=== PATIENT | female | born 1945 | race Caucasian/White ===

== ENCOUNTER → 2017-01-22 | Outpatient (CLI) | payer MEDICARE, OTHER ==
--- NOTE | 2017-01-24 11:44 | P.ARTDOP ---
Arterial Doppler LOWER EXTREMITY ARTERIAL DOPPLER: DATE OF SERVICE: 01/22/2017 Reason for study: Right foot ulcer. Doppler waveforms: Multiphasic throughout on the left and throughout on the right except the right dorsalis pedis.. Pulse volume recording: []. Pressure gradients: Mild distal gradients. Ankle-brachial indices: Greater than 1 bilaterally. Toe pressures: 60 on the right, 77 on the left Impression: Mild distal disease on the right. Perfusion still quite adequate for healing..
== END | disposition home or self-care (01) ==
LOC: RADUSWWP 11:59
PROVIDERS: ATTEND Family Medicine
DX: I77.9 Disorder of arteries and arterioles, unspecified (principal)
CPT/HCPCS: 93922

== ENCOUNTER → 2017-03-27 | Outpatient (CLI) | payer MEDICARE, OTHER ==
--- NOTE | 2017-03-27 14:29 | CT ---
EXAMINATION TYPE: CT abdomen pelvis wo con DATE OF EXAM: 03/27/2017 COMPARISON: KUB dated 01/28/2014 HISTORY: Kidney stones CT DLP: 965 mGycm Automated exposure control for dose reduction was used. TECHNIQUE: Helical acquisition of images was performed from the lung bases through the pelvis. FINDINGS: Leg of intravenous contrast limits evaluation of both the hollow and solid viscera. LUNG BASES: Right middle lobe groundglass airspace disease is present as well as other areas of subse gmental atelectasis. LIVER/GB: Unenhanced liver is of unremarkable morphology and similar in attenuation to that of the sp samy. No intrahepatic biliary duct dilatation. Gallbladder is unremarkable. PANCREAS: Unenhanced pancreas is unremarkable with no ductal dilatation. SPLEEN: No significant abnormality is seen. ADRENALS: Adrenal glands are bulky in appearance without discrete measurable nodule and maintain thei r adreniform shape, likely on the basis of adrenal gland hyperplasia. KIDNEYS: Kidneys are both elongated in the lower poles of the kidneys extending across midline and ar e connected representing a horseshoe kidneys. Innumerable renal calculi are seen bilaterally. Within the right upper pole conglomeration of numerous stones measures 5.4 cm in length and extends into the renal pelvis. Additionally at least 5 renal calculi are seen within the right renal pelvis and there is renal pelvic dilatation as well as right upper pole calyceal dilatation. Remainder the right-side d calyces are nondilated. Distal and mid right ureter are nondilated. 2 posterior medial nonobstructing right midpole renal calculi measuring 5 mm and 1 cm. Anterior midpo le conglomeration of calculi measure 1.6 cm. Inferior pole conglomeration posteriorly measure 1.6 cm. Within the renal pelvis numerous calculi together measure 2.2 cm transversely. Additional inferior p ole calculus measures 1.0 cm. 2 subcentimeter calculi extend near the midline. The left ureter is non dilated. Cortical renal thinning is noted bilaterally. FREE AIR: No free air is visualized REPRODUCTIVE ORGANS: Left adnexal complex partially cystic and partially solid mass measures 5.9 x 6. 8 x 6.3 cm and displaces sigmoid colon medially. This also compresses the left external iliac vein. N onenlarged elongated external iliac chain lymph node on series 3 image 124 measures 6 mm in short axi s. No enlarged superficial inguinal lymph nodes. URINARY BLADDER: No significant abnormality is seen. ADENOPATHY: Few prominent right pelvic lymph nodes are seen within the external iliac chain on serie s 3 image 127 measuring 7 mm in short axis as well as a second external chain right iliac lymph node on series 3 image 119 also measuring 7 mm in short axis in addition to a 9 mm short axis right common iliac chain lymph node on series 3 image 100. At the bifurcation there is a prominent lymph node jimy suring 9 mm in short axis on series 3 image 94. Scattered nonenlarged perirenal and periaortic subcen timeter lymph nodes are also present. OSSEOUS STRUCTURES: Postsurgical change is seen of the L4-L5 vertebral bodies. Mild multilevel degen erative disc disease is present of the visualized thoracolumbar spine. BOWEL: Unopacified bowel is nondilated. Sigmoid and descending colonic diverticula are present witho ut pericolonic fat stranding. OTHER: Dependent body wall edema is mild. IMPRESSION: 1. COMPLEX PARTIALLY CYSTIC AND PARTIALLY SOLID LEFT ADNEXAL 6.8 CM MASS SUSPICIOUS FOR OVARIAN NEOPL ASM. PELVIC ULTRASOUND IS RECOMMENDED FOR FURTHER EVALUATION. 2. HORSESHOE KIDNEYS WITH INNUMERABLE BILATERAL CALCULI WITH A STAGHORN APPEARANCE AND WITHOUT HYDROU RETERONEPHROSIS. CORTICAL RENAL THINNING IS NOTED BILATERALLY. 3. FEW PROMINENT PELVIC LYMPH NODES WITHOUT PATHOLOGICALLY ENLARGED GREATER THAN 1 CM SHORT AXIS LYMP H NODES. 4. FINDINGS LIKELY REPRESENTING ADRENAL GLAND HYPERPLASIA. 5. RIGHT MIDDLE LOBE GROUNDGLASS OPACITY IS NONSPECIFIC AND MAY REPRESENT PNEUMONITIS OR ATELECTASIS. A Yellow message has been communicated to Kamar Thayer MD via the [employer] Critical Result system on 03/27/2017 2:26 PM, Message ID [id number].
== END | disposition home or self-care (01) ==
LOC: RADCTMAIN 12:47
PROVIDERS: ATTEND Urology
DX: N20.0 Calculus of kidney (principal); E27.9 Disorder of adrenal gland, unspecified; Q63.1 Lobulated, fused and horseshoe kidney; N28.89 Other specified disorders of kidney and ureter; Z88.0 Allergy status to penicillin; Z88.8 Allergy status to other drugs, medicaments and biological substances
CPT/HCPCS: 74176

== ENCOUNTER 2017-05-09 06:27 | Day surgery (SDC) | payer MEDICARE, OTHER ==
[2017-05-03 11:37] VITALS: BMI 29.4
[~2017-05-09 06:27] MED LIST: AMPICILLIN 1,000 MG in SODIUM CHLORIDE 0.9% 50 ML IVPB ONE; DEXAMETHASONE SOD PHOSPHATE 10 MG/ML 1 ML VIAL IV ONE; GENTAMICIN 120 MG in SODIUM CHLORIDE 0.9% 100 ML IVPB ONE; HYDROmorphone 0.5 MG/0.5 ML SYRINGE IVP PRN; ONDANSETRON 4 MG/2 ML VIAL IVP ONE
[2017-05-09] MEDS: LACTATED RINGERS 1,000 ML IV SCH ×3 (07:05→11:19)
[2017-05-09] MEDS ORDERED: LIDOCAINE 1% 20 ML VIAL (10MG/ML) FOR IV START INTRADERMA ONE (07:06)
[2017-05-09 07:08] LABS: Glucose,Whole Blood 115 mg/dL (75-99)
--- NOTE | 2017-05-09 07:37 | XR ---
EXAMINATION TYPE: XR KUB DATE OF EXAM: 05/09/2017 7:27 AM CLINICAL HISTORY: Bilateral kidney stones TECHNIQUE: Single supine KUB image of the abdomen is obtained. COMPARISON: CT abdomen and pelvis March 27, 2017 FINDINGS: There is marked bilateral nephrolithiasis redemonstrated. There are roughly 15 large calcul i within right renal pelvis and collecting system, several measuring between 1 to 2 cm on long axis. Similarly there are approximately 15 calculi measuring between 5 to 20 mm throughout left kidney tony ecting system and pelvis. There is postsurgical change lower lumbar spine redemonstrated. There is vascular calcification and p hleboliths in the pelvis. Vascular calcification upper abdomen is noted. Osseous structures are demin eralized. There is moderate joint space loss and subchondral cystic change in both hips. IMPRESSION: Prominent bilateral nephrolithiasis redemonstrated.
[2017-05-09] MEDS ORDERED: PROPOFOL 10 MG/ML 20 ML VIAL IV ONE (07:54)
[2017-05-09] MEDS ORDERED: PHENYLEPHRINE-0.9% NACL SYG 1 MG/10 ML SYRINGE ONE (07:54)
[2017-05-09] MEDS ORDERED: fentaNYL (PF) 50 MCG/ML 2 ML AMP ONE (07:54)
[2017-05-09] MEDS ORDERED: IOHEXOL 350 MG/ML 50ML BOTTLE MISCELLANE ONE (07:54)
[2017-05-09] MEDS ORDERED: LIDOCAINE 1% INJ 10MG/ML (20 ML MDV) ONE (07:54)
[2017-05-09] MEDS ORDERED: SUCCINYLCHOLINE CHLORIDE 100 MG/5 ML SYR IV ONE (07:54)
[2017-05-09] MEDS ORDERED: BISACODYL 10 MG SUPP RECTAL PRN (09:23)
[2017-05-09] MEDS ORDERED: ACETAMINOPHEN TAB 325 MG TAB PO PRN (09:23)
[2017-05-09] MEDS ORDERED: HYDROcodone/APAP 5-325MG 1 EACH TAB PO PRN (09:29)
--- NOTE | 2017-05-09 09:33 | FL ---
EXAMINATION TYPE: FL urography retrograde DATE OF EXAM: 05/09/2017 COMPARISON: NONE HISTORY: Right ureteral stones TECHNIQUE: Fluoroscopy. FINDINGS: 2 minutes and 57 seconds of fluoroscopy provided. IMPRESSION: Fluoroscopy time.
--- NOTE | 2017-05-09 09:38 | P.OP ---
Date of Procedure: 05/09/17 Preoperative Diagnosis: bilateral renal calculi in horseshoe kidney, infected stones, multiple medical problems. Postoperative Diagnosis: Same, right ureteral calculi with obstruction Procedure(s) Performed: Staff to be, right ureteroscopy and stone removal, laser lithotripsy placement of 626 stent Anesthesia: MOE Surgeon: Kamar Thayer Estimated Blood Loss (ml): 0 Pathology: other (Stone) Condition: stable Disposition: PACU Indications for Procedure: The patient is an unhealthy 72-year-old bedridden retirement patient with a horseshoe kidney with large volumes staghorn calculi in each kidney. Had recurrent infections. She has Proteus and Klebsiella in the urine consistent with infected stones. The patient's family wish that I remove the stones. She comes for percutaneous nephrostolithotomy. She has been on IV antibiotics preoperatively Description of Procedure: Patient brought the operating suite and given general anesthesia on the transport gurney. She's placed in a frog position. Cystoscopy identifies chronically infected bladder urine. Bladder urine is irrigated out. The right ureteral orifice is identified. To catheterize the right ureter with occluding balloon catheter but the resistance in the distal ureter. Review the preoperative KUB and what appears to be a nikki collection of distal ureteral stones are identified. The patient thus is placed on the operating table in office supine position placed lithotomy position with sterile prep and drape. rt retrograde Grade pyelogram shows the collection of stones in the distal ureter like a Stein[address]. I cannot pass a wire by the stones. I thus passed a semirigid rigid ureteroscope to the stones and then able to manipulate a wire by the stones. I then easily break the stones with laser lithotripsy. I basket the stones out of the ureter. I Then amount of edema at the point of the ureteroscopy thus a double-J catheter will be placed. An 035 wires and passed through the ureteroscope and over the wires passed a 626 double-J catheter that coils in the renal pelvis and the bladder. the ureter was quite hydronephrotic above the stones therefore I do not wish to work initially in a very infected system . I'll let the double-J catheter drain the infected system and then secondarily do a percutaneous nephrostolithotomy bilaterally. The patient's awakened and returned recovery room good condition. She tolerated procedure well. She'll be observed in the hospital overnight. If she does well she'll be discharged home tomorrow and be set up for a percutaneous nephrostolithotomy in the near future.
[2017-05-09 09:55] LABS: Glucose,Whole Blood 98 mg/dL (75-99)
[2017-05-09] MEDS ORDERED: LEVOFLOXACIN 500 MG TAB PO ONE (10:00)
[2017-05-09 11:47] LABS: Glucose,Whole Blood 92 mg/dL (75-99)
[2017-05-09] MEDS: SODIUM CHLORIDE 0.45% 1,000 ML IV SCH (14:31)
[2017-05-09] MEDS ORDERED: ASPIRIN 81 MG PO SCH (17:00)
[2017-05-09] MEDS: REPAGLINIDE 1 MG TAB PO SCH ×2 (18:02→20:55)
[2017-05-09 19:41] LABS: Glucose,Whole Blood 137 mg/dL (75-99)
[2017-05-09] MEDS: MENTHOL-ZINC OXIDE OINT 113 GM TUBE TOPICAL SCH ×2 (20:54→23:23)
[2017-05-09] MEDS: METOPROLOL TARTRATE 25 MG TAB PO SCH (20:55)
[2017-05-09] MEDS: PRIMIDONE 50 MG TAB PO SCH (20:55)
[2017-05-09] MEDS: GABAPENTIN 300 MG CAP PO SCH (20:55)
[2017-05-09] MEDS ORDERED: SULFAMETHOX-TMP 800-160MG 1 EACH TAB PO SCH (21:00)
[2017-05-09] MEDS ORDERED: INSULIN DETEMIR 100 UNIT/ML 10 ML VIAL SQ SCH (21:00)
[2017-05-09 23:19] VITALS: RESP 16
[2017-05-10 07:08] LABS: Glucose,Whole Blood 79 mg/dL (75-99)
[2017-05-10] MEDS: SODIUM CHLORIDE 0.45% 1,000 ML IV SCH (07:36)
[2017-05-10] MEDS ORDERED: amLODIPine 10 MG TAB PO SCH (09:00)
[2017-05-10] MEDS ORDERED: LEVOFLOXACIN 250 MG TAB PO SCH (09:00)
[2017-05-10] MEDS ORDERED: LISINOPRIL 10 MG TAB PO SCH (09:00)
[2017-05-10] MEDS: REPAGLINIDE 1 MG TAB PO SCH (09:04)
[2017-05-10] MEDS: PRIMIDONE 50 MG TAB PO SCH (09:05)
[2017-05-10] MEDS: GABAPENTIN 300 MG CAP PO SCH (09:05)
[2017-05-10] MEDS: METOPROLOL TARTRATE 25 MG TAB PO SCH (09:05)
[2017-05-10] MEDS: MENTHOL-ZINC OXIDE OINT 113 GM TUBE TOPICAL SCH (09:07)
[2017-05-10 11:12] LABS: Glucose,Whole Blood 184 mg/dL (75-99)
--- NOTE | 2017-05-10 12:45 | P.DS ---
Providers Expected date of discharge: 05/10/17 Attending physician: Kamar Thayer Primary care physician: [facility] Course: On the day of admission, the patient underwent right ureteroscopy. A ureteral calculus was identified, which was removed endoscopically. A ureteral stent was left in place. She remained stable postoperatively. She was afebrile throughout her hospitalization. She was asymptomatic the following day. Procedures: Right ureteroscopy with laser lithotripsy 05/09/2017. Patient Condition at Discharge: Fair Plan - Discharge Summary Discharge Rx Participant: Yes New Discharge Prescriptions: New Cephalexin [Keflex] 500 mg PO Q8HR #30 cap No Action Metoprolol Tartrate [Lopressor] 25 mg PO BID Gabapentin [Neurontin] 300 mg PO BID Aspirin 81 mg PO DAILY@1700 Primidone [Mysoline] 50 mg PO BID Lidocaine 2% Gel [Xylocaine Jelly 2%] 1 applic TOPICAL Q24H PRN PRN Reason: Pain Na Phos,M-B/Na Phos,Di-Ba [Fleet Adult] 133 ml RECTAL ONCE PRN PRN Reason: Constipation Bisacodyl [Dulcolax] 10 mg RECTAL DAILY PRN PRN Reason: Constipation Acetaminophen [Tylenol] 650 mg PO Q4H PRN PRN Reason: Fever And/ Or Pain Repaglinide [Prandin] 0.5 mg PO TID Folic Acid 1 mg PO DAILY@1700 Cholecalciferol [Vitamin D3] 1,000 unit PO DAILY@1700 amLODIPine [Norvasc] 10 mg PO DAILY Magnesium Hydroxide [Milk of Magnesia] 2,400 mg PO DAILY PRN PRN Reason: Constipation Menthol/Zinc Oxide [Calmoseptine Ointment] 1 applic TOPICAL TID Warfarin [Coumadin] 5 mg PO DAILY@1700 #0 Ertapenem [INVanz] 1 gm IVPB Q24H #10 bag Insulin Glargine [Lantus] 28 unit SQ HS Lisinopril [Zestril] 10 mg PO DAILY Discharge Medication List Aspirin 81 mg PO DAILY@1700 01/26/14 [History] Gabapentin [Neurontin] 300 mg PO BID 01/26/14 [History] Metoprolol Tartrate [Lopressor] 25 mg PO BID 01/26/14 [History] Primidone [Mysoline] 50 mg PO BID 09/22/14 [History] Acetaminophen [Tylenol] 650 mg PO Q4H PRN 04/21/17 [History] Bisacodyl [Dulcolax] 10 mg RECTAL DAILY PRN 04/21/17 [History] Cholecalciferol [Vitamin D3] 1,000 unit PO DAILY@1700 04/21/17 [History] Folic Acid 1 mg PO DAILY@1700 04/21/17 [History] Lidocaine 2% Gel [Xylocaine Jelly 2%] 1 applic TOPICAL Q24H PRN 04/21/17 [ History] Magnesium Hydroxide [Milk of Magnesia] 2,400 mg PO DAILY PRN 04/21/17 [History] Na Phos,M-B/Na Phos,Di-Ba [Fleet Adult] 133 ml RECTAL ONCE PRN 04/21/17 [History ] Repaglinide [Prandin] 0.5 mg PO TID 04/21/17 [History] amLODIPine [Norvasc] 10 mg PO DAILY 04/21/17 [History] Menthol/Zinc Oxide [Calmoseptine Ointment] 1 applic TOPICAL TID 04/23/17 [ History] Ertapenem [INVanz] 1 gm IVPB Q24H #10 bag 04/26/17 [Rx] Warfarin [Coumadin] 5 mg PO DAILY@1700 #0 04/26/17 [Rx] Insulin Glargine [Lantus] 28 unit SQ HS 05/03/17 [History] Lisinopril [Zestril] 10 mg PO DAILY 05/03/17 [History] Cephalexin [Keflex] 500 mg PO Q8HR #30 cap 05/10/17 [Rx] Activity/Diet/Wound Care/Special Instructions: Diet as tolerated. Discharge to [facility]. Keflex Rx was sent to [facility] Dr. Thayer to arrange F/U surgery. Discharge Disposition: TRANSFER TO SNF/ECF
[2017-05-10 16:28] VITALS: BP 105/57; PULSE 69; TEMP 97
[2017-05-10 16:57] LABS: Hemoglobin A1C 6.1 % (4.0-6.0)
== END 2017-05-10 14:35 ==
LOC: OR 06:27 → 3SUR 09:25 → OR 05-10 14:35
PROVIDERS: ATTEND Urology
DX: N20.2 Calculus of kidney with calculus of ureter (principal); Q63.1 Lobulated, fused and horseshoe kidney; I48.91 Unspecified atrial fibrillation; Z79.01 Long term (current) use of anticoagulants; E78.5 Hyperlipidemia, unspecified; I10 Essential (primary) hypertension; Z79.4 Long term (current) use of insulin; E11.9 Type 2 diabetes mellitus without complications; Z79.2 Long term (current) use of antibiotics; Z79.82 Long term (current) use of aspirin; Z79.899 Other long term (current) drug therapy; Z88.0 Allergy status to penicillin; Z88.8 Allergy status to other drugs, medicaments and biological substances
CPT/HCPCS: 52352; 52332; 82365; 83036; 74420; 74018; C2625; C1758; C1769 ×3; C2628; J2001; J3010; J1580; J2370; J0330; J2704; Q9967

== ENCOUNTER 2017-05-17 09:36 | Inpatient (IN) | payer MEDICARE, OTHER ==
[2017-05-14 14:42] VITALS: BMI 29.4
[~2017-05-17 09:36] MED LIST changes: -ACETAMINOPHEN TAB 325 MG TAB PO PRN; -BISACODYL 10 MG SUPP RECTAL PRN; -CEPHALEXIN 500 MG CAP PO SCH; +DEXAMETHASONE SOD PHOSPHATE 10 MG/ML 1 ML VIAL IV ONE; -GABAPENTIN 300 MG CAP PO SCH; +GENTAMICIN 120 MG in SODIUM CHLORIDE 0.9% 100 ML IVPB ONE; +HYDROmorphone 0.5 MG/0.5 ML SYRINGE IVP PRN; -INSULIN GLARGINE 28 UNIT SQ SCH; +LACTATED RINGERS 1,000 ML IV SCH; +LIDOCAINE 1% 20 ML VIAL (10MG/ML) FOR IV START INTRADERMA PRN; -LISINOPRIL 10 MG TAB PO SCH; -MAG HYDROX/AL HYDROX/SIMETH 30 ML CUP PO PRN; -MENTHOL-ZINC OXIDE OINT 113 GM TUBE TOPICAL SCH; -METOPROLOL TARTRATE 25 MG TAB PO SCH; +MIDAZOLAM 2 MG/2 ML VIAL IV PRN; -MORPHINE SULFATE 2 MG/ML SYRINGE IVP PRN; +ONDANSETRON 4 MG/2 ML VIAL IVP ONE; -ONDANSETRON 4 MG/2 ML VIAL IVP PRN; -PRIMIDONE 50 MG TAB PO SCH; -REPAGLINIDE 0.5 MG PO SCH; +SCOPOLAMINE 1.5MG/72HR PATCH TRANSDERM ONE; -SODIUM CHLORIDE 0.45% 1,000 ML IV SCH; -amLODIPine 10 MG TAB PO SCH
--- NOTE | 2017-05-17 10:08 | XR ---
EXAMINATION TYPE: XR KUB DATE OF EXAM: 05/17/2017 COMPARISON: 05/09/2017 HISTORY: Preop TECHNIQUE: One view abdominal series FINDINGS: The osseous structures are intact. The bowel gas pattern is nonspecific. Right-sided ureteral stent noted with previous surgery involving the vertebral column. Numerous bilateral renal calculi noted. V ascular calcification seen. Arthropathy of the hips. Extensive retained fecal debris in the colon. IMPRESSION: 1. Bilateral nephrolithiasis.
[2017-05-17 11:24] LABS: Glucose,Whole Blood 84 mg/dL (75-99)
[2017-05-17 11:40] LABS: INR 1.1 (<1.2); Partial Thromboplastin Time 22.7 sec (22.0-30.0); Prothrombin Time 10.4 sec (9.0-12.0)
[2017-05-17] MEDS ORDERED: GLYCOPYRROLATE 0.2 MG/ML 2 ML VIAL ONE (11:45)
[2017-05-17] MEDS ORDERED: PROPOFOL 10 MG/ML 20 ML VIAL IV ONE (11:45)
[2017-05-17] MEDS ORDERED: ROCURONIUM BROMIDE 10 MG/ML 10 ML VIAL IV ONE (11:45)
[2017-05-17] MEDS ORDERED: PHENYLEPHRINE-0.9% NACL SYG 1 MG/10 ML SYRINGE ONE (11:45)
[2017-05-17] MEDS ORDERED: LIDOCAINE 1% INJ 10MG/ML (20 ML MDV) ONE (11:45)
[2017-05-17] MEDS ORDERED: fentaNYL (PF) 50 MCG/ML 2 ML AMP ONE (11:45)
[2017-05-17] MEDS ORDERED: MIDAZOLAM 2 MG/2 ML VIAL ONE (11:45)
[2017-05-17] MEDS ORDERED: NEOSTIGMINE 1 MG/ML 10 ML VIAL ONE (11:45)
[2017-05-17] MEDS ORDERED: IOHEXOL 350 MG/ML (PER ML) 100ML BTL MISCELLANE ONE (12:22)
[2017-05-17] MEDS ORDERED: SODIUM CHLORIDE 0.9% 1,000 ML BAG IRRIGATION ONE (12:22)
--- NOTE | 2017-05-17 13:40 | P.OP ---
Date of Procedure: 05/17/17 Preoperative Diagnosis: Infected Staghorn calculus right, horseshoe kidney Postoperative Diagnosis: Same Procedure(s) Performed: Cystoscopy, removal double-J catheter right, placement of 5-Paraguayan occluding balloon catheter right, percutaneous nephrostomy (Dr. jean-baptiste), percutaneous nephrostolithotomy with ultrasound, placement of 12-Paraguayan J nephrostomy Anesthesia: MOE Surgeon: Kamar Thayer Estimated Blood Loss (ml): 50 Pathology: other (Stone) Condition: stable Disposition: PACU Indications for Procedure: The patient is a 72-year-old usp patient with Alzheimer's and a previous stroke who has bilateral staghorn calculi. She had ureteral stones which were removed last week with a double-J catheter placed. She comes for percutaneous nephrostolithotomy. Description of Procedure: Patient is brought to the operating suite. She is given a general endotracheal anesthesia on the transport gurney. She's placed in a frog position with a sterile prep and drape. Cystoscopy of the Foroblique and 21-Paraguayan sheath and grasping forceps poles the double-J catheter to the urethral meatus. Through the double-J catheter an 025 wires passed up into the renal pelvis. The double- J catheters removed and an 5-Paraguayan occluding balloon catheters placed in the proximal ureter. She's placed in a prone position. Dr. Jean-Baptiste of radiology performed percutaneous access to an upper pole calyx. I dilate the tract to 30-Paraguayan. Upon entering the collecting system and into the renal pelvis a large volume of infected stone was identified. It is either grasped with grasping forceps basketed or broken up and suctioned out with ultrasound. I then pass and each calyx removing stone. At the end of the procedure I looked throughout the collecting system there is no remaining stone. I looked down into the proximal ureter and basket any remaining fragments. I look on fluoroscopy there is no remaining stone. A 12-Paraguayan J nephrostomy tube was placed over the working wire. It is secured the skin with 2-0 silk. His position is confirmed fluoroscopically. The patient was awakened and returned recovery room good condition. She tolerated procedure well be discharged home upon recovery.
[2017-05-17] MEDS ORDERED: BISACODYL 10 MG SUPP RECTAL PRN (13:58)
[2017-05-17] MEDS ORDERED: MAGNESIUM HYDROXIDE 2,400 MG/10 ML CUP PO PRN (13:58)
[2017-05-17] MEDS ORDERED: ACETAMINOPHEN TAB 325 MG TAB PO PRN ×2 (13:58→14:00)
[2017-05-17] MEDS ORDERED: MAG HYDROX/AL HYDROX/SIMETH 30 ML CUP PO PRN (14:00)
[2017-05-17] MEDS ORDERED: ONDANSETRON 4 MG/2 ML VIAL IVP PRN (14:00)
[2017-05-17] MEDS ORDERED: MORPHINE SULFATE 2 MG/ML SYRINGE IVP PRN (14:03)
[2017-05-17 14:09] LABS: Glucose,Whole Blood 100 mg/dL (75-99)
[2017-05-17] MEDS: SODIUM CHLORIDE 0.45% 1,000 ML IV SCH (14:34)
[2017-05-17] MEDS: CEPHALEXIN 500 MG CAP PO SCH ×2 (19:28→23:39)
[2017-05-17] MEDS: MENTHOL-ZINC OXIDE OINT 113 GM TUBE TOPICAL SCH ×2 (19:28→21:00)
[2017-05-17] MEDS: GABAPENTIN 300 MG CAP PO SCH (20:59)
[2017-05-17] MEDS ORDERED: INSULIN DETEMIR 100 UNIT/ML 10 ML VIAL SQ SCH (21:00)
[2017-05-17] MEDS: METOPROLOL TARTRATE 25 MG TAB PO SCH (21:00)
[2017-05-17] MEDS: PRIMIDONE 50 MG TAB PO SCH (21:00)
[2017-05-17 21:10] LABS: Glucose,Whole Blood 126 mg/dL (75-99)
[2017-05-18] MEDS: SODIUM CHLORIDE 0.45% 1,000 ML IV SCH (05:38)
--- NOTE | 2017-05-18 07:34 | P.DS ---
Providers Date of admission: 05/17/17 09:36 Attending physician: Kamar Thayer Primary care physician: [facility] Course: The patient is a 72-year-old alf patient with a history of a previous stroke and some early Alzheimer's with chronically infected urine bilateral staghorn calculi. Last week she had removal of ureteral calculi and stent placement. Yesterday she had a percutaneous nephrostolithotomy as well as removal of her right ureteral catheter. She did well without evidence of sepsis. She is awake alert and oriented hungry this morning. Her urine is clearing nicely. She'll be transferred back to [facility] this morning. Her vital signs are stable. She will resume all her previous medications except no Coumadin until I see her in the office and remove her nephrostomy tube. Her condition is stable. I will defer left percutaneous nephrostolithotomy in the near future. Patient Condition at Discharge: Stable Plan - Discharge Summary Discharge Rx Participant: Yes New Discharge Prescriptions: No Action Metoprolol Tartrate [Lopressor] 25 mg PO BID Gabapentin [Neurontin] 300 mg PO BID Aspirin 81 mg PO DAILY@1700 Primidone [Mysoline] 50 mg PO BID Lidocaine 2% Gel [Xylocaine Jelly 2%] 1 applic TOPICAL DAILY PRN PRN Reason: Pain Na Phos,M-B/Na Phos,Di-Ba [Fleet Adult] 133 ml RECTAL ONCE PRN PRN Reason: Constipation Bisacodyl [Dulcolax] 10 mg RECTAL DAILY PRN PRN Reason: Constipation Acetaminophen [Tylenol] 650 mg PO Q4H PRN PRN Reason: Fever And/ Or Pain Repaglinide [Prandin] 0.5 mg PO TID Folic Acid 1 mg PO DAILY@1700 Cholecalciferol [Vitamin D3] 1,000 unit PO DAILY@1700 amLODIPine [Norvasc] 10 mg PO DAILY Magnesium Hydroxide [Milk of Magnesia] 2,400 mg PO DAILY PRN PRN Reason: Constipation Menthol/Zinc Oxide [Calmoseptine Ointment] 1 applic TOPICAL TID Warfarin [Coumadin] 5 mg PO DAILY@1700 #0 Insulin Glargine [Lantus] 28 unit SQ HS Lisinopril [Zestril] 5 mg PO DAILY Cephalexin [Keflex] 500 mg PO Q8HR #30 cap Discharge Medication List Aspirin 81 mg PO DAILY@1700 01/26/14 [History] Gabapentin [Neurontin] 300 mg PO BID 01/26/14 [History] Metoprolol Tartrate [Lopressor] 25 mg PO BID 01/26/14 [History] Primidone [Mysoline] 50 mg PO BID 01/26/14 [History] Acetaminophen [Tylenol] 650 mg PO Q4H PRN 04/21/17 [History] Bisacodyl [Dulcolax] 10 mg RECTAL DAILY PRN 04/21/17 [History] Cholecalciferol [Vitamin D3] 1,000 unit PO DAILY@1700 04/21/17 [History] Folic Acid 1 mg PO DAILY@1700 04/21/17 [History] Lidocaine 2% Gel [Xylocaine Jelly 2%] 1 applic TOPICAL DAILY PRN 04/21/17 [ History] Magnesium Hydroxide [Milk of Magnesia] 2,400 mg PO DAILY PRN 04/21/17 [History] Na Phos,M-B/Na Phos,Di-Ba [Fleet Adult] 133 ml RECTAL ONCE PRN 04/21/17 [History ] Repaglinide [Prandin] 0.5 mg PO TID 04/21/17 [History] amLODIPine [Norvasc] 10 mg PO DAILY 04/21/17 [History] Menthol/Zinc Oxide [Calmoseptine Ointment] 1 applic TOPICAL TID 04/23/17 [ History] Warfarin [Coumadin] 5 mg PO DAILY@1700 #0 04/26/17 [Rx] Insulin Glargine [Lantus] 28 unit SQ HS 05/03/17 [History] Lisinopril [Zestril] 5 mg PO DAILY 05/03/17 [History] Cephalexin [Keflex] 500 mg PO Q8HR #30 cap 05/10/17 [Rx] Follow up Appointment(s)/Referral(s): Kamar Thayer MD [STAFF PHYSICIAN] - 05/21/17 Activity/Diet/Wound Care/Special Instructions: Home with nephrostomy tube. Resume all medications except hold the Coumadin. Office to see me Sunday for nephrostomy tube removal. Leave indwelling catheter. Discharge Disposition: TRANSFER TO SNF/F
[2017-05-18] MEDS: PRIMIDONE 50 MG TAB PO SCH (08:54)
[2017-05-18] MEDS: CEPHALEXIN 500 MG CAP PO SCH ×2 (08:54→15:52)
[2017-05-18] MEDS: MENTHOL-ZINC OXIDE OINT 113 GM TUBE TOPICAL SCH ×2 (08:54→15:51)
[2017-05-18] MEDS: GABAPENTIN 300 MG CAP PO SCH (08:55)
[2017-05-18] MEDS: METOPROLOL TARTRATE 25 MG TAB PO SCH (08:55)
[2017-05-18] MEDS ORDERED: LISINOPRIL 5 MG TAB PO SCH (09:00)
[2017-05-18] MEDS ORDERED: amLODIPine 10 MG TAB PO SCH (09:00)
[2017-05-18 15:00] VITALS: BP 118/62; PULSE 60; RESP 20; TEMP 97
== END 2017-05-18 16:22 | DRG 661 ==
LOC: 2ORMAIN 09:36 → 3SUR 13:54
PROVIDERS: ADMIT Urology; ATTEND Urology
PROC: 0TC03ZZ Extirpation of Matter from Right Kidney, Percutaneous Approach (ICD-10-PCS; principal; 2017-05-17 11:30)
PROC: 0TP98DZ Removal of Intraluminal Device from Ureter, Via Natural or Artificial Opening Endoscopic (ICD-10-PCS; principal; 2017-05-17 11:30)
DX: N20.0 Calculus of kidney (principal); I48.91 Unspecified atrial fibrillation; E11.9 Type 2 diabetes mellitus without complications; N30.20 Other chronic cystitis without hematuria; G30.9 Alzheimer's disease, unspecified; F02.80 Dementia in other diseases classified elsewhere, unspecified severity, without behavioral disturbance, psychotic disturbance, mood disturbance, and anxiety; Q63.1 Lobulated, fused and horseshoe kidney; E78.5 Hyperlipidemia, unspecified; I10 Essential (primary) hypertension; R19.09 Other intra-abdominal and pelvic swelling, mass and lump; Z79.01 Long term (current) use of anticoagulants; Z79.2 Long term (current) use of antibiotics; Z79.82 Long term (current) use of aspirin; Z79.4 Long term (current) use of insulin; Z79.899 Other long term (current) drug therapy; Z87.440 Personal history of urinary (tract) infections; Z87.442 Personal history of urinary calculi; Z86.73 Personal history of transient ischemic attack (TIA), and cerebral infarction without residual deficits; Z98.49 Cataract extraction status, unspecified eye; Z90.710 Acquired absence of both cervix and uterus; Z90.49 Acquired absence of other specified parts of digestive tract; Z88.0 Allergy status to penicillin; Z88.8 Allergy status to other drugs, medicaments and biological substances
CPT/HCPCS: 50432; 74018; 82365; 85610; 85730

== ENCOUNTER → 2017-05-17 | Outpatient (CLI) | payer MEDICARE, OTHER ==
[~2017-05-17] MED LIST changes: +ACETAMINOPHEN TAB 325 MG TAB PO PRN; -AMPICILLIN 1,000 MG in SODIUM CHLORIDE 0.9% 50 ML IVPB ONE; +BISACODYL 10 MG SUPP RECTAL PRN; +CEPHALEXIN 500 MG CAP PO SCH; -DEXAMETHASONE SOD PHOSPHATE 10 MG/ML 1 ML VIAL IV ONE; +GABAPENTIN 300 MG CAP PO SCH; -GENTAMICIN 120 MG in SODIUM CHLORIDE 0.9% 100 ML IVPB ONE; -HYDROmorphone 0.5 MG/0.5 ML SYRINGE IVP PRN; +INSULIN GLARGINE 28 UNIT SQ SCH; +LISINOPRIL 10 MG TAB PO SCH; +MAG HYDROX/AL HYDROX/SIMETH 30 ML CUP PO PRN; +MENTHOL-ZINC OXIDE OINT 113 GM TUBE TOPICAL SCH; +METOPROLOL TARTRATE 25 MG TAB PO SCH; +MORPHINE SULFATE 2 MG/ML SYRINGE IVP PRN; -ONDANSETRON 4 MG/2 ML VIAL IVP ONE; +ONDANSETRON 4 MG/2 ML VIAL IVP PRN; +PRIMIDONE 50 MG TAB PO SCH; +REPAGLINIDE 0.5 MG PO SCH; +SODIUM CHLORIDE 0.45% 1,000 ML IV SCH; +amLODIPine 10 MG TAB PO SCH
--- NOTE | 2017-05-17 13:58 | FL ---
EXAMINATION TYPE: FL Perc Nephrostomy New Access DATE OF EXAM: 05/17/2017 COMPARISON: NONE HISTORY: Right renal stones Procedure had been discussed with the patient by Dr. Thayer, risks, benefits, alternatives, were dis cussed and any questions were answered. Informed consent was obtained. The patient was in a semipro ne position prepped and draped on the OR table in the usual sterile fashion. Utilizing a 15 cm length Chiba needle a single pass was made into a lower pole posterior calyx under fluoroscopic guidance. An 0.018 guidewire is passed through the needle and there was placement of a 6-Hong Konger catheter sheath system. There was conversion to a 0.035 system was performed with passage of a guidewire into the ureter utilizing a directional catheter. A second safety wire was placed. R emaining portion of procedure performed by . Approximately 3 minutes 31 seconds of fluorosc opy was provided. IMPRESSION: 1. Successful intraoperative right nephrostomy prior to nephrolithotomy.
[2017-05-17 17:07] LABS: Glucose,Whole Blood 121 mg/dL (75-99)
== END | disposition home or self-care (01) ==
LOC: RADXRMAIN 09:45
PROVIDERS: ATTEND Urology
DX: N20.0 Calculus of kidney (principal); Z98.890 Other specified postprocedural states
CPT/HCPCS: 50432

== ENCOUNTER 2017-05-25 08:36 | Inpatient (IN) | payer MEDICARE, OTHER ==
[2017-05-25] MEDS ORDERED: PANTOPRAZOLE 40 MG/10 ML VIAL IVP STA (08:46)
[2017-05-25] MEDS ORDERED: SODIUM CHLORIDE 0.9% 500 ML IV STA (08:46)
[2017-05-25] MEDS ORDERED: ONDANSETRON 4 MG/2 ML VIAL IVP STA (08:46)
[2017-05-25] MEDS ORDERED: SODIUM CHLORIDE 0.9% 1,000 ML IV STA (08:46)
[2017-05-25] MEDS ORDERED: ONDANSETRON 4 MG/2 ML VIAL IVP PRN (08:48)
--- NOTE | 2017-05-25 08:50 | ED ---
General Adult HPI - General Stated complaint: Rectal Bleeding Time Seen by Provider: 05/25/17 08:46 Source: RN notes reviewed, old records reviewed - History of Present Illness Initial comments: This is a 72-year-old female to the ER for evaluation. Patient is ER for evaluation of blood in stool. No blood thinners. Patient sent for evaluation regarding GI bleed. No lightheadedness or dizziness, no weakness to feelings of near syncope - Related Data Home Medications Medication Instructions Recorded Confirmed Aspirin 81 mg PO DAILY@1700 01/26/14 05/25/17 Gabapentin [Neurontin] 300 mg PO BID 01/26/14 05/25/17 Metoprolol Tartrate [Lopressor] 25 mg PO BID 01/26/14 05/25/17 Primidone [Mysoline] 50 mg PO BID 01/26/14 05/25/17 Acetaminophen [Tylenol] 650 mg PO Q4H PRN 04/21/17 05/25/17 Bisacodyl [Dulcolax] 10 mg RECTAL DAILY PRN 04/21/17 05/25/17 Cholecalciferol [Vitamin D3] 1,000 unit PO DAILY@1700 04/21/17 05/25/17 Folic Acid 1 mg PO DAILY@1700 04/21/17 05/25/17 Lidocaine 2% Gel [Xylocaine Jelly 1 applic TOPICAL DAILY PRN 04/21/17 05/25/17 2%] Magnesium Hydroxide [Milk of 2,400 mg PO DAILY PRN 04/21/17 05/25/17 Magnesia] Na Phos,M-B/Na Phos,Di-Ba [Fleet 133 ml RECTAL ONCE PRN 04/21/17 05/25/17 Adult] Repaglinide [Prandin] 0.5 mg PO TID 04/21/17 05/25/17 amLODIPine [Norvasc] 10 mg PO DAILY 04/21/17 05/25/17 Menthol/Zinc Oxide [Calmoseptine 1 applic TOPICAL TID 04/23/17 05/25/17 Ointment] Insulin Glargine [Lantus] 18 unit SQ HS 05/03/17 05/25/17 Lisinopril [Zestril] 5 mg PO DAILY 05/03/17 05/25/17 Hydrocodone/Acetaminophen [[place] 1 tab PO Q6HR PRN 05/25/17 05/25/17 7.5-325] Previous Rx's Medication Instructions Recorded Warfarin [Coumadin] 5 mg PO DAILY@1700 #0 04/26/17 Cephalexin [Keflex] 500 mg PO Q8HR #30 cap 05/10/17 Allergies Allergy/AdvReac Type Severity Reaction Status Date / Time amoxicillin [Amoxicillin] Allergy Swelling Verified 05/25/17 09:10 Review of Systems ROS Statement: Those systems with pertinent positive or pertinent negative responses have been documented in the HPI. ROS Other: All systems not noted in ROS Statement are negative. Past Medical History Past Medical History: Atrial Fibrillation, CVA/TIA, Diabetes Mellitus, GERD/ Reflux, Hypertension, Osteoarthritis (OA), Renal Disease Additional Past Medical History / Comment(s): CHRONIC UTI OVER THE PAST YEARS. PRIOR URINARY CALCULI. LEFT SIDED WEAKNESS.neuropathy, past uterine fibroids, pvd, paroxysmal afib, pressure sores rt heel/buttocks, difficulty swallowing pills. PICC LINE DISCONTINUED History of Any Multi-Drug Resistant Organisms: ESBL Date of last positivie culture/infection: 04/23/17 MDRO Source:: urine Past Surgical History: Appendectomy, Hysterectomy Additional Past Surgical History / Comment(s): cystoscopy, ureteroscopy,OPEN KIDNEY SURGERY FOR CALCULI. LITHRTRIPSY X 2.had i ovary out when young and 2nd one out w/ hysterectomy, lumbar laminectomy,cataracts, cystoscopy with JJ stent placement r/t kidney stones 1-3-18 Past Anesthesia/Blood Transfusion Reactions: No Reported Reaction Past Psychological History: No Psychological Hx Reported Additional Psychological History / Comment(s): Resident of extended care no animal exposures Smoking Status: Never smoker Past Alcohol Use History: None Reported Past Drug Use History: None Reported - Past Family History Mother Family Medical History: Coronary Artery Disease (CAD) Father Family Medical History: Coronary Artery Disease (CAD), Renal Disease Additional Family Medical History / Comment(s): DIALYSIS. General Exam General appearance: alert, in no apparent distress Head exam: Present: atraumatic, normocephalic, normal inspection Eye exam: Present: normal appearance, PERRL, EOMI. Absent: scleral icterus, conjunctival injection, periorbital swelling ENT exam: Present: normal exam, mucous membranes moist Neck exam: Present: normal inspection. Absent: tenderness, meningismus, lymphadenopathy Respiratory exam: Present: normal lung sounds bilaterally. Absent: respiratory distress, wheezes, rales, rhonchi, stridor Cardiovascular Exam: Present: regular rate, normal rhythm, normal heart sounds. Absent: systolic murmur, diastolic murmur, rubs, gallop, clicks GI/Abdominal exam: Present: soft, normal bowel sounds. Absent: distended, tenderness, guarding, rebound, rigid Extremities exam: Present: normal inspection, full ROM, normal capillary refill. Absent: tenderness, pedal edema, joint swelling, calf tenderness Back exam: Present: normal inspection Neurological exam: Present: alert, oriented X3, CN II-XII intact Psychiatric exam: Present: normal affect, normal mood Skin exam: Present: warm, dry, intact, normal color. Absent: rash Course Vital Signs 05/25/17 05/25/17 05/25/17 08:51 09:41 10:43 Temperature 97.8 F Pulse Rate 92 89 95 Respiratory 16 16 18 Rate Blood Pressure 113/58 111/58 126/60 O2 Sat by Pulse 95 98 99 Oximetry - Reevaluation(s) Reevaluation #1: 05/25/17 11:09 Patient has significant will heal well and will be transfused blood currently EKG Findings - EKG Comments: EKG Findings:: EKG shows normal sinus rhythm rate of 90, LA 148, QRS 70, QTC 450 Medical Decision Making - Medical Decision Making 72 female to ER for evaluation. Patient does come for evaluation regards to GI bleed, anemia. Patient be admitted for GI consultation - Lab Data Result diagrams: 05/25/17 09:15 05/25/17 09:15 Lab Results 05/25/17 05/25/17 05/25/17 Range/Units 09:15 09:15 09:15 WBC 10.5 (3.8-10.6) k/uL RBC 2.06 L (3.80-5.40) m/uL Hgb 5.4 L* D (11.4-16.0) gm/dL Hct 17.7 L* (34.0-46.0) % MCV 85.7 (80.0-100.0) fL MCH 26.3 (25.0-35.0) pg MCHC 30.7 L (31.0-37.0) g/dL RDW 15.8 H (11.5-15.5) % Plt Count 212 (150-450) k/uL Neutrophils % 84 % Lymphocytes % 10 % Monocytes % 3 % Eosinophils % 2 % Basophils % 0 % Neutrophils # 8.8 H (1.3-7.7) k/uL Lymphocytes # 1.0 (1.0-4.8) k/uL Monocytes # 0.3 (0-1.0) k/uL Eosinophils # 0.2 (0-0.7) k/uL Basophils # 0.0 (0-0.2) k/uL Hypochromasia Marked PT (9.0-12.0) sec INR (<1.2) APTT (22.0-30.0) sec Sodium 144 (137-145) mmol/L Potassium 3.6 (3.5-5.1) mmol/L Chloride 121 H* (98-107) mmol/L Carbon Dioxide 16 L (22-30) mmol/L Anion Gap 7 mmol/L BUN 49 H (7-17) mg/dL Creatinine 1.27 H (0.52-1.04) mg/dL Est GFR (MDRD) Af Amer 50 (>60 ml/min/1.73 sqM) Est GFR (MDRD) Non-Af 41 (>60 ml/min/1.73 sqM) Glucose 104 H (74-99) mg/dL Calcium 6.4 L* (8.4-10.2) mg/dL Magnesium 1.7 (1.6-2.3) mg/dL Total Bilirubin <0.1 L (0.2-1.3) mg/dL AST 8 L (14-36) U/L ALT 26 (9-52) U/L Alkaline Phosphatase 55 (38-126) U/L Ammonia (<30) umol/L Total Creatine Kinase <20 L (30-135) U/L CK-MB (CK-2) 0.6 (0.0-2.4) ng/mL CK-MB (CK-2) Rel Index Troponin I 0.015 (0.000-0.034) ng/mL Total Protein 3.9 L (6.3-8.2) g/dL Albumin 1.8 L (3.5-5.0) g/dL Blood Type Blood Type Recheck Antibody Screen Spec Expiration Date 05/25/17 05/25/17 05/25/17 Range/Units 09:15 09:15 09:15 WBC (3.8-10.6) k/uL RBC (3.80-5.40) m/uL Hgb (11.4-16.0) gm/dL Hct (34.0-46.0) % MCV (80.0-100.0) fL MCH (25.0-35.0) pg MCHC (31.0-37.0) g/dL RDW (11.5-15.5) % Plt Count (150-450) k/uL Neutrophils % % Lymphocytes % % Monocytes % % Eosinophils % % Basophils % % Neutrophils # (1.3-7.7) k/uL Lymphocytes # (1.0-4.8) k/uL Monocytes # (0-1.0) k/uL Eosinophils # (0-0.7) k/uL Basophils # (0-0.2) k/uL Hypochromasia PT 12.3 H (9.0-12.0) sec INR 1.3 H (<1.2) APTT 20.9 L (22.0-30.0) sec Sodium (137-145) mmol/L Potassium (3.5-5.1) mmol/L Chloride (98-107) mmol/L Carbon Dioxide (22-30) mmol/L Anion Gap mmol/L BUN (7-17) mg/dL Creatinine (0.52-1.04) mg/dL Est GFR (MDRD) Af Amer (>60 ml/min/1.73 sqM) Est GFR (MDRD) Non-Af (>60 ml/min/1.73 sqM) Glucose (74-99) mg/dL Calcium (8.4-10.2) mg/dL Magnesium (1.6-2.3) mg/dL Total Bilirubin (0.2-1.3) mg/dL AST (14-36) U/L ALT (9-52) U/L Alkaline Phosphatase (38-126) U/L Ammonia <9 (<30) umol/L Total Creatine Kinase (30-135) U/L CK-MB (CK-2) (0.0-2.4) ng/mL CK-MB (CK-2) Rel Index Troponin I (0.000-0.034) ng/mL Total Protein (6.3-8.2) g/dL Albumin (3.5-5.0) g/dL Blood Type B Positive Blood Type Recheck No Antibody Screen NEGATIVE Spec Expiration Date 05/28/2017 - 2315 Disposition Clinical Impression: Melena, GI bleed, Anemia Disposition: ADMITTED IP TO THIS [facility] Condition: Fair Instructions: Gastrointestinal Bleeding (ED) Referrals: Solo Ferro DO [Primary Care Provider] - 1-2 days
[2017-05-25] MEDS: SODIUM CHLORIDE 0.9% 1,000 ML IV ONE ×2 (09:39→09:40)
[2017-05-25 09:40] LABS: Basophils % (A) 0 %; Eosinophils # (A) 0.2 k/uL (0-0.7); Eosinophils % (A) 2 %; Hypochromasia Marked; Lymphocytes % (A) 10 %; MCH 26.3 pg (25.0-35.0); MCHC 30.7 g/dL (31.0-37.0); MCV 85.7 fL (80.0-100.0); Monocytes # (A) 0.3 k/uL (0-1.0); Monocytes % (A) 3 %; Neutrophils # (A) 8.8 k/uL (1.3-7.7); Neutrophils % (A) 84 %; Platelet Count 212 k/uL (150-450); RBC 2.06 m/uL (3.80-5.40); RDW 15.8 % (11.5-15.5); WBC 10.5 k/uL (3.8-10.6)
[2017-05-25] MEDS: PANTOPRAZOLE 40 MG/10 ML VIAL IVP SCH ×2 (09:41→20:51)
[2017-05-25 09:51] LABS: HCT 17.7 % (34.0-46.0); HGB 5.4 gm/dL (11.4-16.0)
[2017-05-25 09:53] LABS: INR 1.3 (<1.2); Prothrombin Time 12.3 sec (9.0-12.0)
[2017-05-25 09:56] LABS: ALT 26 U/L (9-52); AST 8 U/L (14-36); Albumin 1.8 g/dL (3.5-5.0); Alkaline Phosphatase 55 U/L (38-126); Anion Gap 7 mmol/L; Blood Urea Nitrogen 49 mg/dL (7-17); Carbon Dioxide 16 mmol/L (22-30); Glucose 104 mg/dL (74-99); Magnesium 1.7 mg/dL (1.6-2.3); Potassium 3.6 mmol/L (3.5-5.1); Sodium 144 mmol/L (137-145); Total Bilirubin <0.1 mg/dL (0.2-1.3); Total Protein 3.9 g/dL (6.3-8.2)
[2017-05-25 10:06] LABS: Chloride 121 mmol/L (98-107)
[2017-05-25 10:07] LABS: Calcium 6.4 mg/dL (8.4-10.2)
[2017-05-25 10:09] LABS: Partial Thromboplastin Time 20.9 sec (22.0-30.0)
[2017-05-25 10:17] LABS: Creatine Kinase <20 U/L (30-135)
[2017-05-25 10:29] LABS: Creatine Kinase MB 0.6 ng/mL (0.0-2.4); Troponin I 0.015 ng/mL (0.000-0.034)
[2017-05-25] MEDS ORDERED: MORPHINE SULFATE 2 MG/ML SYRINGE IVP ONE (10:46)
[2017-05-25 12:18] LABS: Glucose,Whole Blood 123 mg/dL (75-99)
[2017-05-25] MEDS ORDERED: NALOXONE 0.4 MG/ML 1 ML VIAL IV PRN (12:33)
--- NOTE | 2017-05-25 12:44 | P.CNPUL ---
History of Present Illness Consult date: 05/25/17 Reason for consult: other Chief complaint: GI bleed and anemia History of present illness: Consult dated 05/25/2017 72-year-old female who is a resident over [facility]. She apparently had some bleeding from the rectum. It was somewhat black tarry stools. She was found to have relatively low hemoglobin I believe 5.4. Blood was ordered. She was admitted to the hospital. I did speak to the emergency room doctor. It was Dr. Zacarias. The patient's hemodynamic status was stable. Patient's blood pressure was good. The patient was not having any respiratory issues. For that reason we decided to admit the patient to the intensive care unit overnight. The patient will receive blood. The patient's respiratory status is also stable. She apparently has been at [facility] for about 5 months. She wants to go home after discharge for [facility]. Denies any pain in the belly. Denies any complaints other than pain in her buttocks area from a decubitus ulcer. In addition, she otherwise is feeling well.Her past medical history is positive for atrial fibrillation for which she was on Coumadin. She was not therapeutic. She also has a history of CVA/TIA, diabetes, GERD, hypertension, DJD, chronic UTIs and urinary calculi. She does apparently have history of extended spectrum beta-lactamase producing infection. Surgically, she's had an appendectomy and hysterectomy as well as cystoscopy and an open kidney surgery for kidney stones. She's had lithotripsy 2 and a double-J stent placement as well as a lumbar laminectomy. Review of Systems A 12 point review of system is essentially negative. She does have some pain in the buttock area from a decubitus ulcer. Past Medical History Past Medical History: Atrial Fibrillation, CVA/TIA, Diabetes Mellitus, GERD/ Reflux, Hypertension, Osteoarthritis (OA), Renal Disease, Vascular Disorder Additional Past Medical History / Comment(s): Paroxysmal Afib, CVAs with bilateral weakness, IDDM type II, neuropathy bilateral feet, PVD, current pressure sore R heel and R buttock, CKD, horseshoe kidney, hydronephrosis, L adrenal mass being monitored by [facility], chronic UTI, difficulty swallowing pills History of Any Multi-Drug Resistant Organisms: ESBL Date of last positivie culture/infection: 04/23/17 MDRO Source:: urine Past Surgical History: Appendectomy, Hysterectomy Additional Past Surgical History / Comment(s): 05/17/17 cystoscopy with double J stents-had drainage tube but removed couple days ago, past cystoscopies, ureteroscopies, lithotripsy, open kidney surgery for stones, oophorectomy then hysterectomy and remaining ovary removed, picc line since removed, lumbar laminectomy, hemorrhoidectomies, bilateral cataracts removed. Past Anesthesia/Blood Transfusion Reactions: No Reported Reaction Smoking Status: Never smoker - Past Family History Mother Family Medical History: Coronary Artery Disease (CAD) Father Family Medical History: Coronary Artery Disease (CAD), Renal Disease Additional Family Medical History / Comment(s): DIALYSIS. Medications and Allergies Home Medications Medication Instructions Recorded Confirmed Type Aspirin 81 mg PO DAILY@1700 01/26/14 05/25/17 History Gabapentin [Neurontin] 300 mg PO BID 01/26/14 05/25/17 History Metoprolol Tartrate [Lopressor] 25 mg PO BID 01/26/14 05/25/17 History Primidone [Mysoline] 50 mg PO BID 01/26/14 05/25/17 History Acetaminophen [Tylenol] 650 mg PO Q4H PRN 04/21/17 05/25/17 History Bisacodyl [Dulcolax] 10 mg RECTAL DAILY PRN 04/21/17 05/25/17 History Cholecalciferol [Vitamin D3] 1,000 unit PO DAILY@1700 04/21/17 05/25/17 History Folic Acid 1 mg PO DAILY@1700 04/21/17 05/25/17 History Lidocaine 2% Gel [Xylocaine Jelly 1 applic TOPICAL DAILY PRN 04/21/17 05/25/17 History 2%] Magnesium Hydroxide [Milk of 2,400 mg PO DAILY PRN 04/21/17 05/25/17 History Magnesia] Na Phos,M-B/Na Phos,Di-Ba [Fleet 133 ml RECTAL ONCE PRN 04/21/17 05/25/17 History Adult] Repaglinide [Prandin] 0.5 mg PO TID 04/21/17 05/25/17 History amLODIPine [Norvasc] 10 mg PO DAILY 04/21/17 05/25/17 History Menthol/Zinc Oxide [Calmoseptine 1 applic TOPICAL TID 04/23/17 05/25/17 History Ointment] Warfarin [Coumadin] 5 mg PO DAILY@1700 #0 04/26/17 05/25/17 Rx Insulin Glargine [Lantus] 18 unit SQ HS 05/03/17 05/25/17 History Lisinopril [Zestril] 5 mg PO DAILY 05/03/17 05/25/17 History Cephalexin [Keflex] 500 mg PO Q8HR #30 cap 05/10/17 05/25/17 Rx Hydrocodone/Acetaminophen [Isabel 1 tab PO Q6HR PRN 05/25/17 05/25/17 History 7.5-325] Allergies Allergy/AdvReac Type Severity Reaction Status Date / Time amoxicillin [Amoxicillin] Allergy Swelling Verified 05/25/17 09:10 Physical Exam Osteopathic Statement: *. No significant issues noted on an osteopathic structural exam other than those noted in the History and Physical/Consult. Vitals: Vital Signs Temp Pulse Resp BP Pulse Ox 05/25/17 12:28 97.9 F 82 12 109/54 96 05/25/17 11:58 98.1 F 85 16 100/58 100 05/25/17 11:48 97.3 F L 84 18 99/50 05/25/17 10:43 95 18 126/60 99 05/25/17 09:41 89 16 111/58 98 05/25/17 08:51 97.8 F 92 16 113/58 95 Intake and Output 05/24/17 05/25/17 05/25/17 22:59 06:59 14:59 Intake Total 0 Balance 0 Intake: Blood Product 0 Rc Pheresis As-3 Unit 0 [id number] Other: Weight 81.647 kg Patient Weight 05/26/17 06:59 Weight 81.647 kg No acute distress, oriented 3. HEENT examination is grossly unremarkable. Mucous membranes are moist. No oral lesions. Neck supple. Full range of motion. No adenopathy thyromegaly or neck vein distention. Cardiovascular examination reveals regular rhythm rate. S1-S2 normal. No S3 or S4. No discernible murmur noted.The patient's in normal sinus rhythm. Lungs reveal clear breath sounds. Her sounds are equal bilaterally. No adventitious lung sounds including wheezes rhonchi or crackles. Abdomen soft bowel sounds are heard. No masses or tenderness. Extremities are intact. No cyanosis clubbing or edema. Skin is pale. No rash or lesions. Neurologic examination is brief but nonfocal. Results - Laboratory Findings CBC and BMP: 05/25/17 09:15 05/25/17 09:15 PT/INR, D-dimer PT 12.3 sec (9.0-12.0) H 05/25/17 09:15 INR 1.3 (<1.2) H 05/25/17 09:15 Abnormal lab findings: Abnormal Labs 05/25/17 05/25/17 05/25/17 09:15 09:15 09:15 RBC 2.06 L Hgb 5.4 L* D Hct 17.7 L* MCHC 30.7 L RDW 15.8 H Neutrophils # 8.8 H PT INR APTT Chloride 121 H* Carbon Dioxide 16 L BUN 49 H Creatinine 1.27 H Glucose 104 H POC Glucose (mg/dL) Calcium 6.4 L* Total Bilirubin <0.1 L AST 8 L Total Creatine Kinase <20 L Total Protein 3.9 L Albumin 1.8 L Crossmatch 05/25/17 05/25/17 05/25/17 09:15 09:15 12:14 RBC Hgb Hct MCHC RDW Neutrophils # PT 12.3 H INR 1.3 H APTT 20.9 L Chloride Carbon Dioxide BUN Creatinine Glucose POC Glucose (mg/dL) 123 H Calcium Total Bilirubin AST Total Creatine Kinase Total Protein Albumin Crossmatch See Detail - Diagnostic Findings Chest x-ray: image reviewed (Chest x-ray labs and medications are all reviewed.) Assessment and Plan (1) Atrial fibrillation Current Visit: Yes Status: Acute Code(s): I48.91 - UNSPECIFIED ATRIAL FIBRILLATION SNOMED Code(s): 33799955 (2) CVA (cerebral vascular accident) Current Visit: Yes Status: Acute Code(s): I63.9 - CEREBRAL INFARCTION, UNSPECIFIED SNOMED Code(s): 526525636 (3) GERD (gastroesophageal reflux disease) Current Visit: Yes Status: Acute Code(s): K21.9 - GASTRO-ESOPHAGEAL REFLUX DISEASE WITHOUT ESOPHAGITIS SNOMED Code(s): 506801966 (4) Hypertension Current Visit: Yes Status: Acute Code(s): I10 - ESSENTIAL (PRIMARY) HYPERTENSION SNOMED Code(s): 31512916 (5) Arthritis Current Visit: Yes Status: Acute Code(s): M19.90 - UNSPECIFIED OSTEOARTHRITIS, UNSPECIFIED SITE SNOMED Code(s): 9791927 (6) Anemia Current Visit: Yes Status: Acute Code(s): D64.9 - ANEMIA, UNSPECIFIED SNOMED Code(s): 266181933 (7) GI bleed Current Visit: Yes Status: Acute Code(s): K92.2 - GASTROINTESTINAL HEMORRHAGE, UNSPECIFIED SNOMED Code(s): 58937433 (8) Melena Current Visit: Yes Status: Acute Code(s): K92.1 - MELENA SNOMED Code(s): 3581844 (9) Acute on chronic renal failure Current Visit: No Status: Acute Code(s): N17.9 - ACUTE KIDNEY FAILURE, UNSPECIFIED; N18.9 - CHRONIC KIDNEY DISEASE, UNSPECIFIED SNOMED Code(s): 456679741 (10) Diabetes Current Visit: No Status: Acute Code(s): E11.9 - TYPE 2 DIABETES MELLITUS WITHOUT COMPLICATIONS SNOMED Code(s): 29858303 (11) Gram-negative bacterial infection Current Visit: No Status: Acute Code(s): A49.9 - BACTERIAL INFECTION, UNSPECIFIED SNOMED Code(s): 142941526 (12) Renal calculus, right Current Visit: No Status: Acute Code(s): N20.0 - CALCULUS OF KIDNEY SNOMED Code(s): 16188468 Plan: Plan dated 05/25/2017 The patient is relatively stable. I believe the admission to the ICU is a low risk admission. The patient will receive a couple units of packed red blood cells. We'll monitor him her hemoglobin. The patient has stable hemodynamics and respiratory status. Labs are reviewed. She does have a mild non-anion gap metabolic acidosis probably from administration of sodium chloride as well as some for some mild renal insufficiency. The rest of her labs are pretty good other than her hemoglobin was 5.4. The patient is currently in sinus rhythm. Not in atrial fibrillation. She was on Coumadin because of chronic atrial fibrillation. Additional recommendations and suggestions are forthcoming. GI was consulted. No additional recommendations are made. Overall situation is guarded. Time with Patient: Greater than 30
[2017-05-25 13:33] LABS: Appearance,Urine Cloudy (Clear); Bacteria,Urine Rare /hpf; Bilirubin,Urine Negative (Negative); Blood,Urine Small (Negative); Budding Yeast,Urine Many /hpf; Color,Urine Light Yellow; Glucose,Urine (UA) Negative (Negative); Ketones,Urine Negative (Negative); Leukocyte Esterase,Urine Large (Negative); Nitrite,Urine Negative (Negative); Protein,Urine 1+ (Negative); RBC,Urine 20 /hpf (0-5); Specific Gravity,Urine 1.012 (1.001-1.035); Urobilinogen,Urine <2.0 mg/dL (<2.0); WBC,Urine >182 /hpf (0-5)
[2017-05-25] MEDS ORDERED: HYDROcodone/APAP 7.5-325MG 1 EACH TAB PO PRN (16:06)
--- NOTE | 2017-05-25 17:18 | HP ---
HISTORY AND PHYSICAL DATE OF ADMISSION: 05/25/17 PRESENT COMPLAINT: Dark tarry stools. HISTORY OF PRESENTING COMPLAINT: Pleasant 72-year-old patient of Dr. Ferro brought into the ER. The patient's chronic stable medical conditions include diabetes, GERD, hypertension, osteoarthritis, atrial fibrillation, some left-sided weakness from a prior stroke, neuropathy, decub ulcers. The patient is on Coumadin, but INR was less than 2. Patient had 1 episode of the ECF, another 1 in the ER. The patient's hemoglobin did drop down to 5.4, getting 2 units of blood. The patient admitted to ICU for the same. REVIEW OF SYSTEMS: CONSTITUTIONAL: Tired. HEENT: None. RESPIRATORY: None. CARDIOVASCULAR: No chest pain. GASTROINTESTINAL: As above. No abdominal pain. GENITOURINARY: None. MUSCULOSKELETAL: Arthritic pain in different joints. DERMATOLOGICAL: The patient has got an ulcer on the right heel and the buttock area stage II. PSYCHIATRY: A bit forgetful. NEUROLOGICAL: Some weakness of the left side from prior stroke. PAST MEDICAL HISTORY: Atrial fibrillation, stroke with some left-sided weakness, diabetes, GERD, hypertension, osteoarthritis, diabetes type 2 with peripheral neuropathy, peripheral arterial disease. Decubitus on the right heel and the buttock, chronic kidney disease, horseshoe kidney, hydronephrosis, left adrenal mass being followed at [facility], recently had ESBL. PAST SURGICAL HISTORY: Appendectomy, hysterectomy, cystoscopy with double-J stents removed 2 days ago, cystoscopy, ureteroscopy, lithotripsy, open kidney surgery for stones, oophorectomy, hysterectomy, lumbar laminectomy, hemorrhoidectomy, bilateral cataract removed. SOCIAL HISTORY: Resident of [facility]. Does not smoke or drink alcohol. Uses a lift to get to a wheelchair. FAMILY HISTORY: Coronary artery disease and dialysis. HOME MEDICATIONS: 1. Milk of magnesia 2400 mg daily p.r.n. 2. [place] 7.5 one tablet q.6h p.r.n. 3. Vitamin D3 1000 units p.o. daily. 4. Fleet Adult p.r.n. 5. Xylocaine 2% jelly topical daily p.r.n. 6. Dulcolax 10 mg rectal daily p.r.n. 7. Prandin 0.5 mg p.o. t.i.d. 8. Tylenol 650 mg p.o. q.4 p.r.n. 9. Keflex 500 mg q.8. 10.Mysoline 50 mg p.o. b.i.d. 11.Lopressor 25 p.o. b.i.d. 12.Calmoseptine topical t.i.d. 13.Zestril 5 mg p.o. daily. 14.Lantus 18 units subcu q.h.s. 15.Neurontin 300 mg p.o. b.i.d. 16.Norvasc 10 mg p.o. daily. 17.Coumadin 5 mg p.o. daily at 5:00 pm. 18.Folic acid 1 mg p.o. daily 5:00 pm. 19.Aspirin 81 mg p.o. daily. ALLERGIES: To AMOXICILLIN. PHYSICAL EXAMINATION: Vital signs on presentation: Temperature 97.8, pulse 92, respiration 16, blood pressure 113/58, pulse ox 95% on room air. GENERAL APPEARANCE: Average build, lying in bed, tired appearing. EYES: Pupils equal. Conjunctivae normal. HEENT: Oral cavity dry mucous membrane. NECK: Short thick, JVD unable to assess. Mass not palpable. RESPIRATORY: Effort normal. LUNGS: Diminished breath sounds. CARDIOVASCULAR: Heart sounds is irregular. No edema. ABDOMEN: Soft, nontender. Liver and spleen not palpable. LYMPHATIC: No lymph node palpable in neck or axillae. PSYCHIATRY: Patient able to answer simple questions. Mood and affect slightly low. NEUROLOGICAL: Pupils equal. No facial asymmetry. Does move all limbs. DERMATOLOGICAL: Patient has a stage II ulcer just above the maged fold or right heel ulcer; for more details look at the patient's picture chart. MUSCULOSKELETAL: Evidence of osteoarthritis especially in the knees and hands. INVESTIGATION: White count 10.5, hemoglobin 5.4, INR 1.3, potassium 3.6, chloride 121, BUN 49, creatinine 1.27. UA showing leuko esterase, WBC. The patient's BUN and creatinine recently was 20/1.70 and hemoglobin was 10.7 four days ago. ASSESSMENT: 1. Acute severe GI bleed could be upper in a patient who does take aspirin and Coumadin both, and hence, dropped 4 units of blood causing severe anemia. 2. Chronic kidney disease probably stage III from nephrosclerosis. 3. Left-sided weakness from prior stroke. 4. Diabetes mellitus type 2, chronically on insulin. 5. Gastroesophageal reflux disease. 6. Essential hypertension. 7. Primary osteoarthritis of multiple joints, bilateral. 8. Paroxysmal atrial fibrillation currently in sinus rhythm. Patient is on Coumadin for the same. 9. Peripheral neuropathy from diabetes. 10.Stage II decubitus ulcer of the right heel above the buttock area, present on admission. PLAN: Patient getting 2 units of blood. Any renal offensive drugs will be held off including the aspirin and Coumadin. Given the patient's multiple risk factors for bleeding including chronic kidney disease. GI was consulted so was critical care. Close eye will be kept on patient's hemodynamics. Wound care to continue. No other family members at the bedside. MMODL / IJN: [id number] /
[2017-05-25 17:59] LABS: Hypochromasia Slight; MCH 27.8 pg (25.0-35.0); MCHC 33.7 g/dL (31.0-37.0); MCV 82.6 fL (80.0-100.0); Mean Platelet Volume 9.5; Platelet Count 196 k/uL (150-450); RBC 3.03 m/uL (3.80-5.40); RDW 15.6 % (11.5-15.5); WBC 14.2 k/uL (3.8-10.6)
[2017-05-25 18:01] LABS: HGB 8.4 gm/dL (11.4-16.0)
[2017-05-25] MEDS: GABAPENTIN 300 MG CAP PO SCH (20:50)
[2017-05-25] MEDS: PRIMIDONE 50 MG TAB PO SCH (20:50)
[2017-05-25] MEDS: METOPROLOL TARTRATE 25 MG TAB PO SCH (20:50)
[2017-05-25 21:21] LABS: Glucose,Whole Blood 126 mg/dL (75-99)
[2017-05-25] MEDS: MENTHOL-ZINC OXIDE OINT 113 GM TUBE TOPICAL SCH (21:30)
[2017-05-25 23:51] LABS: HCT 22.3 % (34.0-46.0); HGB 7.1 gm/dL (11.4-16.0); Hypochromasia Slight; MCH 27.3 pg (25.0-35.0); MCHC 31.7 g/dL (31.0-37.0); MCV 86.1 fL (80.0-100.0); Mean Platelet Volume 8.3; Platelet Count 191 k/uL (150-450); Poikilocytosis Slight; RBC 2.59 m/uL (3.80-5.40); WBC 10.5 k/uL (3.8-10.6)
[2017-05-26 05:41] LABS: Anisocytosis Slight; Basophils % (A) 0 %; Eosinophils # (A) 0.4 k/uL (0-0.7); Eosinophils % (A) 5 %; HCT 24.3 % (34.0-46.0); HGB 7.5 gm/dL (11.4-16.0); Hypochromasia Slight; Lymphocytes # (A) 1.4 k/uL (1.0-4.8); Lymphocytes % (A) 15 %; MCH 26.6 pg (25.0-35.0); MCHC 30.7 g/dL (31.0-37.0); MCV 86.5 fL (80.0-100.0); Mean Platelet Volume 8.6; Monocytes # (A) 0.4 k/uL (0-1.0); Monocytes % (A) 4 %; Neutrophils # (A) 6.9 k/uL (1.3-7.7); Neutrophils % (A) 74 %; Platelet Count 189 k/uL (150-450); RBC 2.81 m/uL (3.80-5.40); RDW 16.4 % (11.5-15.5); WBC 9.2 k/uL (3.8-10.6)
[2017-05-26 05:48] LABS: Calcium 8.4 mg/dL (8.4-10.2); Magnesium 2.1 mg/dL (1.6-2.3); Phosphorus 3.6 mg/dL (2.5-4.5); Potassium 4.5 mmol/L (3.5-5.1)
--- NOTE | 2017-05-26 08:43 | P.CONS ---
History of Present Illness - Reason for Consult Consult date: 05/25/17 GI bleeding - History of Present Illness The patient is a 72-year-old female who was brought to the hospital because of melanotic tarry stools and was found to have anemia with a hemoglobin of 5.4. the patient had 2 episodes of tarry stools, one at the [facility] and one in the emergency room but did not have any hematemesis. She has atrial fibrillation and has been maintained on aspirin and Coumadin. Her INR on arrival was 1.3. The patient denied anyabdominal pains, nausea, vomiting or hematemesis. She does have a pressure ulcer over her buttocks and she has been complaining of pain close to the rectal area but no hematochezia or change in bowel habits.the patient has prior history of CVA with residual left sidedweakness and has other medical problems as noted below including chronic kidney disease. Review of Systems Constitutional: Denies fever, chills, sweats, weight gain, or loss. HEENT: Negative for migraines, blurred vision or loss, earaches, drainage, tinnitus, oral mucosal lesions, dysphagia, or odynophagia. CARDIAC: Negative for chest pain, has history of atrial fibrillation RESPIRATORY: Negative for shortness of breath, hemoptysis, cough, or sputum production. GI: See HPI for pertinent findings. : Negative for hematuria, urgency, frequency, polyuria, or dysuria.history of chronic kidney disease possibly states 3 secondary to nephrosclerosis GYNc: Negative vaginal discharge. MUSCULOSKELETAL: Negative for muscle aches or swelling, has history of degenerative joint disease and arthralgias. NEUROLOGIC: History of CVAwith residual left-sided weakness. ENDOCRINE: Negative for thyroid problems. History of diabetes mellitus. SKIN: Negative for rash or itching.has pressure ulcer on the right heel and stage II decubitus ulcers on the buttock. PSYCHIATRIC: Negative history for depression and anxiety. Past Medical History Past Medical History: Atrial Fibrillation, CVA/TIA, Diabetes Mellitus, GERD/ Reflux, Hypertension, Osteoarthritis (OA), Renal Disease, Vascular Disorder Additional Past Medical History / Comment(s): Paroxysmal Afib, CVAs with bilateral weakness, IDDM type II, neuropathy bilateral feet, PVD, current pressure sore R heel and R buttock, CKD, horseshoe kidney, hydronephrosis, L adrenal mass being monitored by [facility], chronic UTI, difficulty swallowing pills History of Any Multi-Drug Resistant Organisms: ESBL Year Discovered:: 04/23/17 MDRO Source:: urine Past Surgical History: Appendectomy, Hysterectomy Additional Past Surgical History / Comment(s): 05/17/17 cystoscopy with double J stents-had drainage tube but removed couple days ago, past cystoscopies, ureteroscopies, lithotripsy, open kidney surgery for stones, oophorectomy then hysterectomy and remaining ovary removed, picc line since removed, lumbar laminectomy, hemorrhoidectomies, bilateral cataracts removed. Past Anesthesia/Blood Transfusion Reactions: No Reported Reaction Smoking Status: Never smoker - Past Family History Mother Family Medical History: Coronary Artery Disease (CAD) Father Family Medical History: Coronary Artery Disease (CAD), Renal Disease Additional Family Medical History / Comment(s): DIALYSIS. Medications and Allergies Home Medications Medication Instructions Recorded Confirmed Type Aspirin 81 mg PO DAILY@1700 01/26/14 05/25/17 History Gabapentin [Neurontin] 300 mg PO BID 01/26/14 05/25/17 History Metoprolol Tartrate [Lopressor] 25 mg PO BID 01/26/14 05/25/17 History Primidone [Mysoline] 50 mg PO BID 01/26/14 05/25/17 History Acetaminophen [Tylenol] 650 mg PO Q4H PRN 04/21/17 05/25/17 History Bisacodyl [Dulcolax] 10 mg RECTAL DAILY PRN 04/21/17 05/25/17 History Cholecalciferol [Vitamin D3] 1,000 unit PO DAILY@1700 04/21/17 05/25/17 History Folic Acid 1 mg PO DAILY@1700 04/21/17 05/25/17 History Lidocaine 2% Gel [Xylocaine Jelly 1 applic TOPICAL DAILY PRN 04/21/17 05/25/17 History 2%] Magnesium Hydroxide [Milk of 2,400 mg PO DAILY PRN 04/21/17 05/25/17 History Magnesia] Na Phos,M-B/Na Phos,Di-Ba [Fleet 133 ml RECTAL ONCE PRN 04/21/17 05/25/17 History Adult] Repaglinide [Prandin] 0.5 mg PO TID 04/21/17 05/25/17 History amLODIPine [Norvasc] 10 mg PO DAILY 04/21/17 05/25/17 History Menthol/Zinc Oxide [Calmoseptine 1 applic TOPICAL TID 04/23/17 05/25/17 History Ointment] Warfarin [Coumadin] 5 mg PO DAILY@1700 #0 04/26/17 05/25/17 Rx Insulin Glargine [Lantus] 18 unit SQ HS 05/03/17 05/25/17 History Lisinopril [Zestril] 5 mg PO DAILY 05/03/17 05/25/17 History Cephalexin [Keflex] 500 mg PO Q8HR #30 cap 05/10/17 05/25/17 Rx Hydrocodone/Acetaminophen [Branscomb 1 tab PO Q6HR PRN 05/25/17 05/25/17 History 7.5-325] Allergies Allergy/AdvReac Type Severity Reaction Status Date / Time amoxicillin [Amoxicillin] Allergy Swelling Verified 05/25/17 09:10 Physical Exam Vitals: Vital Signs Temp Pulse Resp BP Pulse Ox 05/25/17 17:00 76 21 110/60 94 L 05/25/17 16:37 98.3 F 76 14 112/63 97 05/25/17 16:30 76 20 106/53 97 05/25/17 16:00 98.3 F 74 18 110/58 98 05/25/17 15:30 73 19 109/57 97 05/25/17 15:00 75 14 89/53 97 05/25/17 14:35 98 F 75 12 102/50 97 05/25/17 14:30 78 22 107/57 97 05/25/17 14:05 97.9 F 76 12 99/43 98 05/25/17 14:00 80 19 97/53 99 05/25/17 13:57 98.2 F 78 12 97/53 99 05/25/17 13:55 98.2 F 78 12 97/53 99 05/25/17 13:45 78 16 101/53 98 05/25/17 13:30 79 18 123/63 97 05/25/17 13:15 81 20 101/52 98 05/25/17 13:00 81 20 101/52 96 05/25/17 12:45 82 17 109/54 97 05/25/17 12:30 97.9 F 87 24 109/54 96 01/19/18 12:28 97.9 F 82 12 109/54 96 05/25/17 11:58 98.1 F 85 16 100/58 100 05/25/17 11:48 97.3 F L 84 18 99/50 05/25/17 10:43 95 18 126/60 99 05/25/17 09:41 89 16 111/58 98 05/25/17 08:51 97.8 F 92 16 113/58 95 Intake and Output 05/25/17 05/25/17 05/25/17 06:59 14:59 22:59 Intake Total 620 720 Output Total 335 145 Balance 285 575 Intake: IV 100 Sodium Chloride 0.9% 1, 100 000 ml @ 100 mls/hr IV . Q10H ONE Rx#:[id number] Blood Product 620 620 Rc As-1 Unit 0 310 [id number] Rc Pheresis As-3 Unit 310 [id number] Output: Urine 335 145 Other: Voiding Method Indwelling Catheter Indwelling Catheter Weight 85.3 kg Patient Weight 05/26/17 06:59 Weight 85.3 kg General appearance: The patient is alert, oriented, in no acute distress. HET: Head is normocephalic and atraumatic. Pupils are equal and reactive. Oropharynx is clear without lesions. Neck: Supple without lymphadenopathy. Trachea midline. Heart: S1 S2. Irregular,no murmurs, gallops or friction rubs. Lungs: No crackles or wheezes are heard. Abdomen: Soft, no tenderness lower left abdomen, nondistended with bowel sounds. No peritoneal signs. No palpable organomegaly or masses. Extremities: Normal skin color and turgor. No cyanosis, rash, clubbing, or edema. Rt heel pressure ulcer. Radial and pedal pulses are 2/4 bilaterally. Neurological: No focal deficits. Strength and sensation are grossly intact, with some degree of weakness on the left side. Results CBC & Chem 7: 05/26/17 05:20 05/26/17 05:20 Labs: Abnormal Lab Results - Last 24 Hours (Table) 05/25/17 05/25/17 05/25/17 Range/Units 09:15 09:15 09:15 RBC 2.06 L (3.80-5.40) m/uL Hgb 5.4 L* D (11.4-16.0) gm/dL Hct 17.7 L* (34.0-46.0) % MCHC 30.7 L (31.0-37.0) g/dL RDW 15.8 H (11.5-15.5) % Neutrophils # 8.8 H (1.3-7.7) k/uL PT (9.0-12.0) sec INR (<1.2) APTT (22.0-30.0) sec Chloride 121 H* (98-107) mmol/L Carbon Dioxide 16 L (22-30) mmol/L BUN 49 H (7-17) mg/dL Creatinine 1.27 H (0.52-1.04) mg/dL Glucose 104 H (74-99) mg/dL POC Glucose (mg/dL) (75-99) mg/dL Calcium 6.4 L* (8.4-10.2) mg/dL Total Bilirubin <0.1 L (0.2-1.3) mg/dL AST 8 L (14-36) U/L Total Creatine Kinase <20 L (30-135) U/L Total Protein 3.9 L (6.3-8.2) g/dL Albumin 1.8 L (3.5-5.0) g/dL Urine Appearance (Clear) Urine Protein (Negative) Urine Blood (Negative) Ur Leukocyte Esterase (Negative) Urine RBC (0-5) /hpf Urine WBC (0-5) /hpf Urine WBC Clumps (None) /hpf Urine Bacteria (None) /hpf Urine Yeast (Budding) (None) /hpf Crossmatch 05/25/17 05/25/17 05/25/17 Range/Units 09:15 09:15 12:03 RBC (3.80-5.40) m/uL Hgb (11.4-16.0) gm/dL Hct (34.0-46.0) % MCHC (31.0-37.0) g/dL RDW (11.5-15.5) % Neutrophils # (1.3-7.7) k/uL PT 12.3 H (9.0-12.0) sec INR 1.3 H (<1.2) APTT 20.9 L (22.0-30.0) sec Chloride (98-107) mmol/L Carbon Dioxide (22-30) mmol/L BUN (7-17) mg/dL Creatinine (0.52-1.04) mg/dL Glucose (74-99) mg/dL POC Glucose (mg/dL) (75-99) mg/dL Calcium (8.4-10.2) mg/dL Total Bilirubin (0.2-1.3) mg/dL AST (14-36) U/L Total Creatine Kinase (30-135) U/L Total Protein (6.3-8.2) g/dL Albumin (3.5-5.0) g/dL Urine Appearance Cloudy H (Clear) Urine Protein 1+ H (Negative) Urine Blood Small H (Negative) Ur Leukocyte Esterase Large H (Negative) Urine RBC 20 H (0-5) /hpf Urine WBC >182 H (0-5) /hpf Urine WBC Clumps Many H (None) /hpf Urine Bacteria Rare H (None) /hpf Urine Yeast (Budding) Many H (None) /hpf Crossmatch See Detail 05/25/17 Range/Units 12:14 RBC (3.80-5.40) m/uL Hgb (11.4-16.0) gm/dL Hct (34.0-46.0) % MCHC (31.0-37.0) g/dL RDW (11.5-15.5) % Neutrophils # (1.3-7.7) k/uL PT (9.0-12.0) sec INR (<1.2) APTT (22.0-30.0) sec Chloride (98-107) mmol/L Carbon Dioxide (22-30) mmol/L BUN (7-17) mg/dL Creatinine (0.52-1.04) mg/dL Glucose (74-99) mg/dL POC Glucose (mg/dL) 123 H (75-99) mg/dL Calcium (8.4-10.2) mg/dL Total Bilirubin (0.2-1.3) mg/dL AST (14-36) U/L Total Creatine Kinase (30-135) U/L Total Protein (6.3-8.2) g/dL Albumin (3.5-5.0) g/dL Urine Appearance (Clear) Urine Protein (Negative) Urine Blood (Negative) Ur Leukocyte Esterase (Negative) Urine RBC (0-5) /hpf Urine WBC (0-5) /hpf Urine WBC Clumps (None) /hpf Urine Bacteria (None) /hpf Urine Yeast (Budding) (None) /hpf Crossmatch Assessment and Plan Assessment: GI bleeding and anemia likely secondary to bleeding source in the upper GI tract such as peptic ulcer disease. In her age group, other etiology to be kept in mind. Plan: Because of her atrial fibrillation and the likely need for aspirin or anticoagulation, I will schedule an upper endoscopy tomorrow morning to define the source of her bleeding and guide our therapy. Her and 2 sons where at the bedside and I explained the indications and possible complications and alternatives and she and her family are agreeable. We will continue checking her blood counts after transfusion and continue PPI.
[2017-05-26] MEDS ORDERED: PROPOFOL 10 MG/ML 20 ML VIAL IV ONE (10:46)
--- NOTE | 2017-05-26 11:23 | P.PCN ---
Date of Procedure: 05/26/17 Procedure(s) Performed: procedure: Esophagogastroduodenoscopy and biopsy. Preoperative diagnosis: GI bleeding and anemia. Postoperative diagnosis: 1. Small sliding hiatal hernia with no obvious esophagitis or complicated reflux disease. 2. Gastritis and duodenitis with small duodenal bulb ulcer but no active bleeding. 3. Biopsies obtained from the antrum. Preparation and sedation: Was provided by anesthesia. Brief clinical history: The patient is a 72-year-old female who was brought to the hospital because of melanotic tarry stools and was found to have anemia with a hemoglobin of 5.4. The patient had 2 episodes of tarry stools, one at the [place] [facility] and one in the emergency room but did not have any hematemesis. She has atrial fibrillation and has been maintained on aspirin and Coumadin. Her INR on arrival was 1.3. The patient denied any abdominal pains, nausea, vomiting or hematemesis. She does have a pressure ulcer over her buttocks and she has been complaining of pain close to the rectal area but no hematochezia or change in bowel habits. she was transfused either hemoglobin was up to 8.4. This morning it is 7.5. The details are summarized in the history and physical and dictated consultation and progress notes. Procedure: with the patient on her left lateral decubitus position and after informed consent and adequate sedation, I passed the Olympus-GIF 160 video upper endoscope through the cricopharyngeus down the esophagus. GE junction was around 40 cm from the incisors and there was a small sliding hiatal hernia. The esophagus did not show any erosions, ulcers, strictures or Gregg's esophagus. No mucosal tears, varices or bleeding. The endoscope was then passed into the stomach which was insufflated with air and inspected in detail including the retroflex view in the cardia. Finally, the endoscope was passed through the pylorus into the duodenum. The stomach and duodenum showed mottling erythema and areas of friability but no spontaneous bleeding. There was no pyloric channel ulcer. The duodenal bulb showed a small ulcer covered with white exudate. Post bulbar area and descending duodenum did not show any obvious abnormalities. All secretions suctioned where bilious in color. I obtained biopsies from the antrum. At the conclusion of the examination, I performed a rectal examination that revealed soft brown stools without masses or bleeding. The patient tolerated the procedure well. Plan: The patient and her family were reassured. Will allow clear liquid diet. Continue PPI and monitor blood counts.
--- NOTE | 2017-05-26 11:46 | P.PN ---
Subjective Progress Note Date: 05/26/17 Principal diagnosis: 72-year-old female who is a resident over [facility]. She apparently had some bleeding from the rectum. It was somewhat black tarry stools. She was found to have relatively low hemoglobin I believe 5.4. Blood was ordered. She was admitted to the hospital. I did speak to the emergency room doctor. It was Dr. Zacarias. The patient's hemodynamic status was stable. Patient's blood pressure was good. The patient was not having any respiratory issues. For that reason we decided to admit the patient to the intensive care unit overnight. The patient will receive blood. The patient's respiratory status is also stable. She apparently has been at [facility] for about 5 months. She wants to go home after discharge for [facility]. Denies any pain in the belly. Denies any complaints other than pain in her buttocks area from a decubitus ulcer. In addition, she otherwise is feeling well.Her past medical history is positive for atrial fibrillation for which she was on Coumadin. She was not therapeutic. She also has a history of CVA/TIA, diabetes, GERD, hypertension, DJD, chronic UTIs and urinary calculi. She does apparently have history of extended spectrum beta-lactamase producing infection. Surgically, she's had an appendectomy and hysterectomy as well as cystoscopy and an open kidney surgery for kidney stones. She's had lithotripsy 2 and a double-J stent placement as well as a lumbar laminectomy. The patient is seen again today 05/26/2017 in follow-up in the intensive care unit. She has just returned from her EGD which revealed evidence of gastritis, duodenitis with a small duodenal bulb ulcer but no active bleeding. Biopsies were taken. There is also a noted small sliding hiatal hernia but no obvious esophagitis or complicated reflux disease. Presently she is awake and alert in no acute distress. She denies any shortness of breath, cough or congestion. She is maintaining O2 saturations in the 90s on room air. She's been hemodynamically stable. Hemoglobin 7.5. No further bleeding. She is status post 2 units of packed red blood cells since admission. Creatinine 1.69. Objective - Vital Signs Vital signs: Vital Signs Temp 97.6 F 05/26/17 05:00 Pulse 56 L 05/26/17 09:27 Resp 20 05/26/17 09:27 BP 120/58 05/26/17 09:27 Pulse Ox 92 L 05/26/17 09:27 Intake & Output 05/25/17 05/26/17 05/26/17 18:59 06:59 18:59 Intake Total 1440 1200 300 Output Total 540 925 310 Balance 900 275 -10 Weight 85.3 kg 85.7 kg Intake: IV 200 1200 300 Sodium Chloride 0.9% 1, 200 1200 300 000 ml @ 100 mls/hr IV . Q10H ONE Rx#:[id number] Blood Product 1240 Rc As-1 Unit 310 [id number] Rc Pheresis As-3 Unit 310 [id number] Output: Urine 540 925 310 Other: Voiding Method Indwelling Catheter Indwelling Catheter Indwelling Catheter # Bowel Movements 1 - Exam No acute distress, oriented 3. HEENT examination is grossly unremarkable. Mucous membranes are moist. No oral lesions. Neck supple. Full range of motion. No adenopathy thyromegaly or neck vein distention. Cardiovascular examination reveals regular rhythm rate. S1-S2 normal. No S3 or S4. No discernible murmur noted.The patient's in normal sinus rhythm. Lungs reveal clear breath sounds. Her sounds are equal bilaterally. No adventitious lung sounds including wheezes rhonchi or crackles. Abdomen soft bowel sounds are heard. No masses or tenderness. Extremities are intact. No cyanosis clubbing or edema. Skin is pale. There is a healing wound in the right flank area. Neurologic examination is brief but nonfocal. - Labs CBC & Chem 7: 05/26/17 05:20 05/26/17 05:20 Labs: Abnormal Lab Results - Last 24 Hours (Table) 05/25/17 05/25/17 05/25/17 Range/Units 09:15 12:03 12:14 WBC (3.8-10.6) k/uL RBC (3.80-5.40) m/uL Hgb (11.4-16.0) gm/dL Hct (34.0-46.0) % MCHC (31.0-37.0) g/dL RDW (11.5-15.5) % Chloride (98-107) mmol/L BUN (7-17) mg/dL Creatinine (0.52-1.04) mg/dL POC Glucose (mg/dL) 123 H (75-99) mg/dL Urine Appearance Cloudy H (Clear) Urine Protein 1+ H (Negative) Urine Blood Small H (Negative) Ur Leukocyte Esterase Large H (Negative) Urine RBC 20 H (0-5) /hpf Urine WBC >182 H (0-5) /hpf Urine WBC Clumps Many H (None) /hpf Urine Bacteria Rare H (None) /hpf Urine Yeast (Budding) Many H (None) /hpf Crossmatch See Detail 05/25/17 05/25/17 05/25/17 Range/Units 17:30 21:18 23:33 WBC 14.2 H (3.8-10.6) k/uL RBC 3.03 L 2.59 L (3.80-5.40) m/uL Hgb 8.4 L D 7.1 L (11.4-16.0) gm/dL Hct 25.0 L 22.3 L (34.0-46.0) % MCHC (31.0-37.0) g/dL RDW 15.6 H (11.5-15.5) % Chloride (98-107) mmol/L BUN (7-17) mg/dL Creatinine (0.52-1.04) mg/dL POC Glucose (mg/dL) 126 H (75-99) mg/dL Urine Appearance (Clear) Urine Protein (Negative) Urine Blood (Negative) Ur Leukocyte Esterase (Negative) Urine RBC (0-5) /hpf Urine WBC (0-5) /hpf Urine WBC Clumps (None) /hpf Urine Bacteria (None) /hpf Urine Yeast (Budding) (None) /hpf Crossmatch 05/26/17 05/26/17 Range/Units 05:20 05:20 WBC (3.8-10.6) k/uL RBC 2.81 L (3.80-5.40) m/uL Hgb 7.5 L (11.4-16.0) gm/dL Hct 24.3 L (34.0-46.0) % MCHC 30.7 L (31.0-37.0) g/dL RDW 16.4 H (11.5-15.5) % Chloride 117 H (98-107) mmol/L BUN 50 H (7-17) mg/dL Creatinine 1.69 H (0.52-1.04) mg/dL POC Glucose (mg/dL) (75-99) mg/dL Urine Appearance (Clear) Urine Protein (Negative) Urine Blood (Negative) Ur Leukocyte Esterase (Negative) Urine RBC (0-5) /hpf Urine WBC (0-5) /hpf Urine WBC Clumps (None) /hpf Urine Bacteria (None) /hpf Urine Yeast (Budding) (None) /hpf Crossmatch Assessment and Plan Assessment: Assessment and Plan (1) Atrial fibrillation Current Visit: Yes Status: Acute Code(s): I48.91 - UNSPECIFIED ATRIAL FIBRILLATION SNOMED Code(s): 19072158 (2) CVA (cerebral vascular accident) Current Visit: Yes Status: Acute Code(s): I63.9 - CEREBRAL INFARCTION, UNSPECIFIED SNOMED Code(s): 882684212 (3) GERD (gastroesophageal reflux disease) Current Visit: Yes Status: Acute Code(s): K21.9 - GASTRO-ESOPHAGEAL REFLUX DISEASE WITHOUT ESOPHAGITIS SNOMED Code(s): 018773349 (4) Hypertension Current Visit: Yes Status: Acute Code(s): I10 - ESSENTIAL (PRIMARY) HYPERTENSION SNOMED Code(s): 74912130 (5) Arthritis Current Visit: Yes Status: Acute Code(s): M19.90 - UNSPECIFIED OSTEOARTHRITIS, UNSPECIFIED SITE SNOMED Code(s): 8940253 (6) Anemia Current Visit: Yes Status: Acute Code(s): D64.9 - ANEMIA, UNSPECIFIED SNOMED Code(s): 770226080 (7) GI bleed Current Visit: Yes Status: Acute Code(s): K92.2 - GASTROINTESTINAL HEMORRHAGE, UNSPECIFIED SNOMED Code(s): 77637146 (8) Melena Current Visit: Yes Status: Acute Code(s): K92.1 - MELENA SNOMED Code(s): 0065469 (9) Acute on chronic renal failure Current Visit: No Status: Acute Code(s): N17.9 - ACUTE KIDNEY FAILURE, UNSPECIFIED; N18.9 - CHRONIC KIDNEY DISEASE, UNSPECIFIED SNOMED Code(s): 457383332 (10) Diabetes Current Visit: No Status: Acute Code(s): E11.9 - TYPE 2 DIABETES MELLITUS WITHOUT COMPLICATIONS SNOMED Code(s): 44351232 (11) Gram-negative bacterial infection Current Visit: No Status: Acute Code(s): A49.9 - BACTERIAL INFECTION, UNSPECIFIED SNOMED Code(s): 772323470 (12) Renal calculus, right Current Visit: No Status: Acute Code(s): N20.0 - CALCULUS OF KIDNEY SNOMED Code(s): 47835334 Plan: The patient was seen by Dr. Louis. She is quite stable from the pulmonary and critical care standpoint. No active bleeding per EGD today. She could be transferred to the regular medical floor today. Continue to monitor her for any active bleeding. Continue to monitor hemoglobins. We will increase her activity as tolerated. We'll continue to follow. I, the cosigning physician, performed a history & physical examination of the patient. Lungs sounds are clear. Maintaining good O2 saturations in the 90s on room air. I discussed the assessment and plan of care with my nurse practitioner, Kae Zhang. I attest to the above note as dictated by her.
[2017-05-26 11:53] LABS: Anisocytosis Slight; HCT 26.1 % (34.0-46.0); HGB 7.9 gm/dL (11.4-16.0); Hypochromasia Marked; MCHC 30.2 g/dL (31.0-37.0); MCV 89.2 fL (80.0-100.0); Platelet Count 196 k/uL (150-450); RBC 2.92 m/uL (3.80-5.40); RDW 16.1 % (11.5-15.5); WBC 12.2 k/uL (3.8-10.6)
[2017-05-26] MEDS: amLODIPine 10 MG TAB PO SCH (13:49)
[2017-05-26] MEDS: PANTOPRAZOLE 40 MG/10 ML VIAL IVP SCH ×2 (13:50→22:15)
[2017-05-26] MEDS: GABAPENTIN 300 MG CAP PO SCH ×2 (13:50→22:15)
[2017-05-26] MEDS: MENTHOL-ZINC OXIDE OINT 113 GM TUBE TOPICAL SCH ×3 (13:51→22:16)
[2017-05-26] MEDS: LISINOPRIL 5 MG TAB PO SCH (13:54)
[2017-05-26] MEDS: PRIMIDONE 50 MG TAB PO SCH ×2 (13:54→22:15)
[2017-05-26] MEDS: METOPROLOL TARTRATE 25 MG TAB PO SCH ×2 (13:55→21:00)
[2017-05-26 17:39] LABS: Anisocytosis Slight; HCT 25.5 % (34.0-46.0); Hypochromasia Moderate; MCH 27.7 pg (25.0-35.0); MCHC 31.6 g/dL (31.0-37.0); MCV 87.7 fL (80.0-100.0); Mean Platelet Volume 8.6; Platelet Count 217 k/uL (150-450); RDW 16.3 % (11.5-15.5)
[2017-05-26 17:59] LABS: Glucose,Whole Blood 153 mg/dL (75-99)
[2017-05-26 20:41] LABS: Glucose,Whole Blood 183 mg/dL (75-99)
[2017-05-26] MEDS: INSULIN ASPART 100 UNIT/ML 1 ML 10 ML VIAL SQ SCH (21:00)
[2017-05-26] MEDS ORDERED: LIDOCAINE 2% GEL 30 ML TUBE TOPICAL PRN (23:23)
[2017-05-26] MEDS ORDERED: MAGNESIUM HYDROXIDE 2,400 MG/10 ML CUP PO PRN (23:23)
[2017-05-27] MEDS: INSULIN ASPART 100 UNIT/ML 1 ML 10 ML VIAL SQ SCH ×4 (07:53→23:00)
[2017-05-27 08:02] LABS: Glucose,Whole Blood 124 mg/dL (75-99)
[2017-05-27 08:28] LABS: Basophils % (A) 0 %; Eosinophils # (A) 0.4 k/uL (0-0.7); Eosinophils % (A) 4 %; HCT 21.1 % (34.0-46.0); Hypochromasia Moderate; Lymphocytes # (A) 1.5 k/uL (1.0-4.8); Lymphocytes % (A) 17 %; MCH 26.7 pg (25.0-35.0); MCHC 30.5 g/dL (31.0-37.0); MCV 87.6 fL (80.0-100.0); Mean Platelet Volume 8.3; Monocytes # (A) 0.3 k/uL (0-1.0); Monocytes % (A) 3 %; Neutrophils # (A) 6.8 k/uL (1.3-7.7); Neutrophils % (A) 74 %; Platelet Count 178 k/uL (150-450); RDW 15.3 % (11.5-15.5); WBC 9.2 k/uL (3.8-10.6)
[2017-05-27 08:31] LABS: Calcium 8.1 mg/dL (8.4-10.2); Magnesium 1.9 mg/dL (1.6-2.3); Phosphorus 2.9 mg/dL (2.5-4.5)
[2017-05-27 08:40] LABS: HGB 6.4 gm/dL (11.4-16.0)
--- NOTE | 2017-05-27 09:02 | PN ---
PROGRESS NOTE DATE OF SERVICE: 05/26/2017 This 72-year-old gentleman admitted with acute severe GI bleed had 2 units of transfusion this time. Hemoglobin is at 8. The patient complains of constipation. Dr. Redding performed endoscopies today. The upper endoscopy showed a small sliding hiatal hernia with no obvious esophagitis complicated or complicated disease, but gastritis duodenitis, small duodenal bulb ulcer was also noted without any active bleeding. At this time patient closely monitored. PAST MEDICAL HISTORY: Reviewed. REVIEW OF SYSTEMS: CARDIOVASCULAR: No angina. RESPIRATORY: As mentioned earlier. GI: As mentioned earlier. : No dysuria. NERVOUS SYSTEM: No numbness or weakness. MEDICATIONS: Reviewed and include: 1. Tylenol 650 q.4h p.r.n. 2. [place] 7.5 q.6h. 3. Norvasc 10 mg daily. 4. Calamine lotion. 5. Neurontin. 6. NovoLog. 7. Zestril 5 mg. 8. Lopressor. 9. Narcan. 10.Zofran. 11.Protonix. PHYSICAL EXAM: Patient is alert and oriented x3. Pulse is 57, blood pressure 103/66, respirations 20, temperature 97.2, pulse ox 94% on room air. HEENT: Conjunctivae pale. Oral mucosa moist. NECK: No jugular venous distention. No carotid bruit. No lymph node enlargement. CARDIOVASCULAR: S1, S2. No S3, no S4. RESPIRATORY: Breath sounds diminished in the bases. A few scattered rhonchi and crackles. ABDOMEN: Soft, nontender. No mass. LEGS: No edema. NERVOUS SYSTEM: No focal deficits. LABS: WBC 13, hemoglobin is 8. Creatinine 1.2. Other labs are noted. ASSESSMENT: 1. Acute upper gastrointestinal bleeding with acute blood loss anemia, status post multiple transfusions, possibly from gastritis, duodenitis, and duodenal bulb ulcer. 2. Status post EGD. 3. Increased creatinine with chronic kidney disease. 4. Increased WBC. 5. Chronic kidney disease stage 3 from nephrosclerosis. 6. Left-sided weakness from prior stroke. 7. Diabetes mellitus type 2. 8. Gastroesophageal reflux disease. 9. Hypertension. 10.Primary degenerative joint disease of multiple joints bilaterally. 11.Paroxysmal atrial fibrillation, currently sinus rhythm. 12.Peripheral neuropathy from diabetes mellitus type 2. 13.Stage II decubitus ulcer, right heel, present on admission. 14.FULL CODE. RECOMMENDATIONS AND DISCUSSION: This 72-year-old woman with multiple medical problems, will monitor the patient closely. Continue the current management and symptomatic treatment. Otherwise at this time, I recommend to hold antiplatelet agents and monitor CBC and BMP closely and otherwise gastroenterology evaluation appreciated. Proton pump inhibitors. Guarded prognosis because of multiple complex medical issues. Further recommendations to follow. Home medications reconciliation also done. DVT prophylaxis. MMODL / IJN: [id number] /
[2017-05-27] MEDS: PANTOPRAZOLE 40 MG/10 ML VIAL IVP SCH ×2 (09:56→22:49)
[2017-05-27] MEDS: MENTHOL-ZINC OXIDE OINT 113 GM TUBE TOPICAL SCH ×3 (09:57→23:03)
[2017-05-27 11:18] LABS: Glucose,Whole Blood 115 mg/dL (75-99)
[2017-05-27] MEDS ORDERED: FUROSEMIDE 10 MG/ML 2 ML VIAL IV ONE (13:06)
[2017-05-27] MEDS: LISINOPRIL 5 MG TAB PO SCH (14:35)
[2017-05-27] MEDS: REPAGLINIDE 1 MG TAB PO SCH ×3 (14:35→22:48)
[2017-05-27] MEDS: PRIMIDONE 50 MG TAB PO SCH ×2 (14:35→22:49)
[2017-05-27] MEDS: amLODIPine 10 MG TAB PO SCH (14:35)
[2017-05-27] MEDS: GABAPENTIN 300 MG CAP PO SCH ×2 (14:35→22:47)
[2017-05-27] MEDS: METOPROLOL TARTRATE 25 MG TAB PO SCH ×2 (14:35→22:47)
[2017-05-27] MEDS: FOLIC ACID 1 MG TAB PO SCH (16:28)
[2017-05-27] MEDS: CHOLECALCIFEROL 1,000 UNIT TAB PO SCH (16:28)
[2017-05-27 17:18] LABS: Glucose,Whole Blood 112 mg/dL (75-99)
[2017-05-27 19:50] LABS: Hemoglobin A1C 5.8 % (4.0-6.0)
[2017-05-27 21:02] LABS: Glucose,Whole Blood 158 mg/dL (75-99)
[2017-05-27 21:31] LABS: Anisocytosis Slight; HCT 28.3 % (34.0-46.0); Hypochromasia Slight; MCH 28.6 pg (25.0-35.0); MCHC 32.6 g/dL (31.0-37.0); MCV 87.6 fL (80.0-100.0); Mean Platelet Volume 8.9; Platelet Count 190 k/uL (150-450); RBC 3.23 m/uL (3.80-5.40); RDW 16.4 % (11.5-15.5); WBC 10.9 k/uL (3.8-10.6)
[2017-05-27 21:40] LABS: HGB 9.2 gm/dL (11.4-16.0)
[2017-05-27] MEDS: INSULIN DETEMIR 100 UNIT/ML 10 ML VIAL SQ SCH (23:00)
[2017-05-28 07:17] LABS: Glucose,Whole Blood 97 mg/dL (75-99)
[2017-05-28] MEDS: INSULIN ASPART 100 UNIT/ML 1 ML 10 ML VIAL SQ SCH ×4 (07:18→22:33)
[2017-05-28] MEDS ORDERED: ACETAMINOPHEN IV (For NPO) 1,000 MG in EMPTY BAG 1 BAG IVPB ONE (07:35)
[2017-05-28 08:35] LABS: Anisocytosis Slight; Basophils % (A) 0 %; Eosinophils # (A) 0.2 k/uL (0-0.7); Eosinophils % (A) 2 %; HCT 30.3 % (34.0-46.0); HGB 9.5 gm/dL (11.4-16.0); Hypochromasia Moderate; Lymphocytes # (A) 0.4 k/uL (1.0-4.8); Lymphocytes % (A) 4 %; MCH 27.8 pg (25.0-35.0); MCHC 31.4 g/dL (31.0-37.0); MCV 88.5 fL (80.0-100.0); Mean Platelet Volume 8.7; Monocytes # (A) 0.5 k/uL (0-1.0); Monocytes % (A) 5 %; Neutrophils # (A) 7.9 k/uL (1.3-7.7); Neutrophils % (A) 87 %; Platelet Count 216 k/uL (150-450); RBC 3.43 m/uL (3.80-5.40); RDW 16.4 % (11.5-15.5); WBC 9.1 k/uL (3.8-10.6)
[2017-05-28] MEDS: PANTOPRAZOLE 40 MG/10 ML VIAL IVP SCH ×2 (08:40→22:33)
[2017-05-28] MEDS: LISINOPRIL 5 MG TAB PO SCH (08:40)
[2017-05-28] MEDS: GABAPENTIN 300 MG CAP PO SCH ×2 (08:44→22:35)
[2017-05-28] MEDS: METOPROLOL TARTRATE 25 MG TAB PO SCH ×2 (08:47→22:35)
[2017-05-28] MEDS: amLODIPine 10 MG TAB PO SCH (08:48)
[2017-05-28] MEDS: REPAGLINIDE 1 MG TAB PO SCH ×4 (08:48→22:42)
[2017-05-28] MEDS: PRIMIDONE 50 MG TAB PO SCH ×2 (08:49→22:35)
[2017-05-28 08:51] LABS: Calcium 8.7 mg/dL (8.4-10.2); Magnesium 1.7 mg/dL (1.6-2.3); Potassium 3.7 mmol/L (3.5-5.1)
[2017-05-28] MEDS: MENTHOL-ZINC OXIDE OINT 113 GM TUBE TOPICAL SCH ×3 (08:51→22:35)
[2017-05-28 12:07] LABS: Glucose,Whole Blood 138 mg/dL (75-99)
[2017-05-28] MEDS: cefTRIAXone IN SWFI 1,000 MG/10 ML SYRINGE IVP SCH (14:32)
[2017-05-28 15:14] LABS: INR 2.3 (<1.2); Prothrombin Time 20.6 sec (9.0-12.0)
--- NOTE | 2017-05-28 15:24 | PN ---
PROGRESS NOTE DATE OF SERVICE: 05/27/2017 This 72-year-old woman was admitted with severe GI bleed, had 2 units of transfusion, but hemoglobin has gone down today again at 6.4. No chest pain. No palpitations. No fever. EXAM: Alert and oriented x2. Pulse 90, blood pressure is 159/66, respirations 16, temperature 99.2, pulse ox 90% room air. HEENT: Conjunctivae normal. NECK: No jugular venous distention. CARDIOVASCULAR: S1, S2. RESPIRATORY: Breath sounds diminished in the bases. A few scattered rhonchi and crackles. ABDOMEN: Soft, nontender. No mass palpable. LEGS: No edema, no swelling. NERVOUS SYSTEM: Diffusely weak. LABS: Hemoglobin 6.4. ASSESSMENT: 1. Acute upper gastrointestinal bleeding with acute blood loss anemia, status post multiple transfusions. Possibly from gastritis, duodenitis and duodenal bulb ulcer. 2. Status post EGD. 3. Increased creatinine with chronic kidney disease. 4. Increased WBC. 5. Chronic kidney disease stage 3 from nephrosclerosis. 6. Left-sided weakness from prior stroke. 7. Diabetes mellitus type 2. 8. Gastroesophageal reflux disease. 9. Hypertension. 10.Primary degenerative joint disease of multiple joints bilaterally. 11.Paroxysmal atrial fibrillation, currently sinus rhythm. 12.Peripheral neuropathy from diabetes mellitus type 2. 13.Stage II decubitus of the right heel, present on admission. 14.FULL CODE. RECOMMENDATION AND DISCUSSION: I recommend to continue current medications, continue symptomatic treatment. Otherwise, I would recommend transfusions. Guarded prognosis because of multiple complex medical issues and further recommendations to follow. MMODL / IJN: [id number] /
--- NOTE | 2017-05-28 15:39 | PN ---
PROGRESS NOTE DATE OF SERVICE: 05/28/2017. INTERVAL HISTORY: This 72-year-old woman was admitted with GI bleed had multiple transfusions yesterday as well. No chest pain. No palpitations. No gastrointestinal bleed is noted, rectal bleeding is noted at this time. No hemoptysis. No fever. PHYSICAL EXAM: Alert and oriented x2. Pulse 88, blood pressure is 150/82, respirations 16, temp 99.2, pulse ox 93% on room air. HEENT is conjunctivae normal. Oral mucosa moist. Neck is no jugular venous distention. No carotid bruit. No lymph node enlargement. Cardiovascular: S1, S2. Respirations: Breath sounds diminished at the bases. A few scattered rhonchi. No crackles. ABDOMEN: Soft, nontender. No mass palpable. Legs: No edema, no swelling. Central nervous system: Diffusely weak. LAB DATA: Hemoglobin 9.5, potassium 3.7. ASSESSMENT: 1. Acute upper gastrointestinal bleeding with acute blood loss anemia, status post multiple transfusions possibly gastritis duodenitis and duodenal bulb ulcer. 2. Status post EGD. 3. Increased creatinine with chronic kidney disease stage 3. 4. Increased WBC. 5. Left-sided weakness from prior stroke. 6. Diabetes type 2. 7. Gastroesophageal reflux disease. 8. Hypertension. 9. Primary degenerative joint disease of multiple joints bilaterally. 10.Paroxysmal atrial fibrillation, currently normal sinus rhythm. 11.Peripheral neuropathy from diabetes type 2. 12.Stage II decubitus ulcer, right heel, present on admission. 13.FULL CODE. RECOMMENDATIONS AND DISCUSSION: Continue current medications, management, symptomatic treatment, and avoid. Repeat labs. Continue with diet. Guarded prognosis because of multiple complex medical issues. Further recommendations to follow. MMODL / IJN: [id number] / OLINDA
[2017-05-28 17:05] LABS: Glucose,Whole Blood 74 mg/dL (75-99)
[2017-05-28] MEDS: CHOLECALCIFEROL 1,000 UNIT TAB PO SCH (17:12)
[2017-05-28] MEDS: FOLIC ACID 1 MG TAB PO SCH (17:12)
[2017-05-28 20:54] LABS: Glucose,Whole Blood 58 mg/dL (75-99)
[2017-05-28 21:04] LABS: Glucose,Whole Blood 61 mg/dL (75-99)
[2017-05-28 21:36] LABS: Glucose,Whole Blood 78 mg/dL (75-99)
[2017-05-28 21:40] LABS: Glucose,Whole Blood 101 mg/dL (75-99)
[2017-05-28] MEDS: INSULIN DETEMIR 100 UNIT/ML 10 ML VIAL SQ SCH (22:33)
[2017-05-28] MEDS: ACETAMINOPHEN TAB 325 MG TAB PO PRN (23:35)
[2017-05-29] MEDS: amLODIPine 10 MG TAB PO SCH (07:34)
[2017-05-29] MEDS: PRIMIDONE 50 MG TAB PO SCH (07:34)
[2017-05-29] MEDS: METOPROLOL TARTRATE 25 MG TAB PO SCH (07:34)
[2017-05-29] MEDS: ACETAMINOPHEN TAB 325 MG TAB PO PRN (07:34)
[2017-05-29] MEDS: INSULIN ASPART 100 UNIT/ML 1 ML 10 ML VIAL SQ SCH ×3 (07:35→17:26)
[2017-05-29] MEDS: PANTOPRAZOLE 40 MG/10 ML VIAL IVP SCH (07:35)
[2017-05-29] MEDS: MENTHOL-ZINC OXIDE OINT 113 GM TUBE TOPICAL SCH ×2 (07:35→15:14)
[2017-05-29] MEDS: LISINOPRIL 5 MG TAB PO SCH (07:35)
[2017-05-29] MEDS: GABAPENTIN 300 MG CAP PO SCH (07:35)
[2017-05-29] MEDS: REPAGLINIDE 1 MG TAB PO SCH ×2 (07:35→15:14)
[2017-05-29 07:58] LABS: Glucose,Whole Blood 90 mg/dL (75-99)
[2017-05-29 10:21] LABS: Anisocytosis Slight; Basophils % (A) 0 %; Eosinophils # (A) 0.2 k/uL (0-0.7); Eosinophils % (A) 2 %; HCT 28.7 % (34.0-46.0); HGB 9.2 gm/dL (11.4-16.0); Hypochromasia Slight; Lymphocytes # (A) 0.6 k/uL (1.0-4.8); Lymphocytes % (A) 8 %; MCHC 31.9 g/dL (31.0-37.0); Mean Platelet Volume 9.2; Monocytes # (A) 0.3 k/uL (0-1.0); Monocytes % (A) 4 %; Neutrophils # (A) 6.4 k/uL (1.3-7.7); Neutrophils % (A) 84 %; Platelet Count 204 k/uL (150-450); RBC 3.27 m/uL (3.80-5.40); RDW 16.9 % (11.5-15.5); WBC 7.6 k/uL (3.8-10.6)
--- NOTE | 2017-05-29 10:28 | P.PN ---
Subjective Progress Note Date: 05/29/17 Principal diagnosis: GI bleed s/p EGD nonbleeding small duodenal ulcer; biopsies pending. No recurrent bleeding. Tolerating diet. Denies abdominal pain. Objective - Vital Signs Vital signs: Vital Signs Temp 101.1 F H 05/29/17 07:20 Pulse 81 05/29/17 07:20 Resp 18 05/29/17 07:20 BP 141/71 05/29/17 07:20 Pulse Ox 90 L 05/29/17 07:40 Intake & Output 05/28/17 05/29/17 05/29/17 18:59 06:59 18:59 Intake Total 350 Output Total 950 325 Balance -600 -325 Weight 80 kg Intake: Oral 350 Output: Urine 950 325 Other: Voiding Method Indwelling Catheter Indwelling Catheter Indwelling Catheter # Voids 375 # Bowel Movements 2 0 - Exam General appearance: The patient is alert, oriented, in no acute distress. HET: Head is normocephalic and atraumatic. Pupils are equal and reactive. Oropharynx is clear without lesions. Neck: Supple without lymphadenopathy. Trachea midline. Heart: S1 S2. Regular rate and rhythm. Lungs: No crackles or wheezes are heard. Abdomen: Soft, nontender, nondistended with bowel sounds. No peritoneal signs. No palpable organomegaly or masses. Extremities: Normal skin color and turgor. No cyanosis, rash, ulceration, clubbing, or edema. Radial and pedal pulses are 2/4 bilaterally. Neurological: No focal deficits. Strength and sensation are grossly intact. - Labs CBC & Chem 7: 05/28/17 07:58 05/28/17 07:58 Labs: Abnormal Lab Results - Last 24 Hours (Table) 05/28/17 05/28/17 05/28/17 Range/Units 12:00 14:43 17:02 PT 20.6 H (9.0-12.0) sec INR 2.3 H (<1.2) POC Glucose (mg/dL) 138 H 74 L (75-99) mg/dL 05/28/17 05/28/17 05/28/17 Range/Units 20:47 21:02 21:39 PT (9.0-12.0) sec INR (<1.2) POC Glucose (mg/dL) 58 L 61 L 101 H (75-99) mg/dL Microbiology - Last 24 Hours (Table) 05/27/17 15:00 Urine Culture - Final Urine,Catheterized Ivory albicans Assessment and Plan (1) Acute blood loss anemia Current Visit: Yes Status: Acute Code(s): D62 - ACUTE POSTHEMORRHAGIC ANEMIA SNOMED Code(s): 457401410 (2) Duodenal ulcer Current Visit: Yes Status: Acute Code(s): K26.9 - DUODENAL ULCER, UNSP ACUTE OR CHRONIC, W/O HEMOR OR PERF SNOMED Code(s): 52710807 (3) GI bleed Current Visit: Yes Status: Acute Code(s): K92.2 - GASTROINTESTINAL HEMORRHAGE, UNSPECIFIED SNOMED Code(s): 58059756 Plan: 1. DC per medicine. 2. Protonix 40 mg daily on discharge. 3. RTO 2 weeks. Resume anticoagulation per medicine recommendations. Assessment and plan of care discussed with Dr. Redding
[2017-05-29 10:40] LABS: Calcium 8.1 mg/dL (8.4-10.2); Magnesium 1.6 mg/dL (1.6-2.3); Phosphorus 3.2 mg/dL (2.5-4.5); Potassium 3.4 mmol/L (3.5-5.1)
[2017-05-29] MEDS: cefTRIAXone IN SWFI 1,000 MG/10 ML SYRINGE IVP SCH (11:14)
[2017-05-29] MEDS ORDERED: POTASSIUM CHLORIDE ER 20 MEQ TAB.ER PO STA (11:42)
[2017-05-29] MEDS ORDERED: DEXTROSE 10 % IN WATER 250 ML IV STA (12:13)
[2017-05-29 12:26] LABS: Glucose,Whole Blood 45 mg/dL (75-99)
[2017-05-29 12:37] LABS: Glucose,Whole Blood 166 mg/dL (75-99)
[2017-05-29 15:38] LABS: Appearance,Urine Cloudy (Clear); Bacteria,Urine Moderate /hpf; Bilirubin,Urine Negative (Negative); Blood,Urine Trace (Negative); Budding Yeast,Urine Many /hpf; Color,Urine Yellow; Glucose,Urine (UA) Trace (Negative); Ketones,Urine Negative (Negative); Leukocyte Esterase,Urine Large (Negative); Mucus,Urine Rare /hpf; Nitrite,Urine Negative (Negative); PH, Urine 5.5 (5.0-8.0); Protein,Urine 1+ (Negative); RBC,Urine 60 /hpf (0-5); Squamous Epithelial Cell,Urine 1 /hpf (0-4); Urobilinogen,Urine <2.0 mg/dL (<2.0); WBC,Urine >182 /hpf (0-5)
[2017-05-29] MEDS: FOLIC ACID 1 MG TAB PO SCH (16:38)
[2017-05-29] MEDS: OSELTAMIVIR 75 MG CAP PO SCH (16:38)
[2017-05-29] MEDS: CHOLECALCIFEROL 1,000 UNIT TAB PO SCH (16:38)
--- NOTE | 2017-05-29 16:56 | XR ---
EXAMINATION TYPE: XR chest 2V DATE OF EXAM: 05/29/2017 COMPARISON: May 23, 2013 HISTORY: Shortness of breath TECHNIQUE: Frontal and lateral views of the chest are obtained. FINDINGS: The lateral image is suboptimal due to patient motion. Chronic appearing interstitial prom inence and multifocal left sided atelectasis are noted. Hilar engorgement is new from the prior and m ay represent noncardiogenic fluid overload, pulmonary hypertension or adenopathy. There is no focal a ir space opacity, pleural effusion, or pneumothorax seen. The cardiac silhouette size is within norm al limits. The osseous structures are intact. IMPRESSION: 1. No focal consolidation to suggest pneumonia. 2. Multifocal left-sided platelike subsegmental atelectasis. 3. New hilar prominence may represent central pulmonary vascular congestion and fluid overload, pulmo nary hypertension or adenopathy.
[2017-05-29 17:33] LABS: Glucose,Whole Blood 86 mg/dL (75-99)
--- NOTE | 2017-05-29 20:10 | PN ---
PROGRESS NOTE DATE OF SERVICE: 05/29/2017 INTERIM HISTORY: This is a 72-year-old woman who was admitted with acute upper gastrointestinal bleeding, also running fever. The patient underwent influenza testing which was positive for influenza A. Urinalysis shows multiple urine clumps. No chest pain or palpitation. The patient continues to be drowsy. PAST MEDICAL HISTORY: Reviewed. REVIEW OF SYSTEMS: Could not be taken, the patient is rather drowsy today. CURRENT MEDICATIONS: 1. Tylenol 650 every 4 hours. 2. [place] 7.5. 3. Calamine lotion. 4. Rocephin 1 g daily. 5. Vitamin D3, 1000 daily. 6. Diflucan 200 mg. 7. Folic acid. 8. Neurontin 300 mg b.i.d. 9. NovoLog. 10.Levemir. 11.Zestril. 12.Lopressor. 13.Zofran. 14.Tamiflu. PHYSICAL EXAM: Patient is stuporous. Pulse 64, blood pressure 146/69, respirations 16, temperature 99.4, pulse ox 86% on 3 L. HEENT; Conjunctivae normal. Oral mucosa moist. NECK: No JVD. No lymph node enlargement. No carotid bruits. CARDIOVASCULAR: S1 and S2 muffled. LUNGS: Breath sounds diminished at the bases. Few scattered rhonchi and crackles. ABDOMEN: Soft, nontender. EXTREMITIES: No edema. 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 Moves all limbs equally. LYMPH: No lymph nodes palpable in the neck, axillae or groin. SKIN: No ulcer. LABS: WBC 7.2, hemoglobin 9.2, sodium 113, potassium 3.4. ASSESSMENT: 1. Acute upper gastrointestinal bleeding with acute blood loss anemia, status post multiple transfusions, possibly gastritis, duodenitis, and duodenal bulb ulcer. 2. Acute influenza A. 3. Urinary tract infection. 4. Status post EGD. 5. Increased creatinine with chronic kidney disease stage 3. 6. Increased WBC. 7. Left-sided weakness from prior stroke. 8. Diabetes mellitus type 2. 9. Gastroesophageal reflux disease. 10.Hypertension. 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 12.Paroxysmal atrial fibrillation, currently normal sinus rhythm. 13.Peripheral neuropathy from diabetes type 2. 14.Stage II decubitus ulcer, right hip, present on admission. 15.FULL CODE. RECOMMENDATIONS AND DISCUSSION: Current management and treatment. Otherwise flu isolation. I would recommend Tamiflu, cultures, Infectious Disease evaluation. Pulmonary is following the patient closely. Prognosis guarded because of multiple complex medical comanagement. Further recommendations to follow. See orders for further details. MMODL / IJN: [id number] /
[2017-05-29] MEDS ORDERED: PANTOPRAZOLE 40 MG/10 ML VIAL ONE (21:00)
[2017-05-29] MEDS ORDERED: METOPROLOL TARTRATE 25 MG TAB ONE (21:00)
[2017-05-29] MEDS ORDERED: PRIMIDONE 50 MG TAB ONE (21:00)
[2017-05-29] MEDS ORDERED: GABAPENTIN 300 MG CAP ONE (21:00)
[2017-05-29] MEDS ORDERED: REPAGLINIDE 1 MG TAB ONE (21:00)
[2017-05-29] MEDS ORDERED: FLUCONAZOLE 100 MG TAB ONE (21:00)
[2017-05-29 21:19] LABS: Glucose,Whole Blood 99 mg/dL (75-99)
[2017-05-30 05:22] LABS: Glucose,Whole Blood 68 mg/dL (75-99)
[2017-05-30] MEDS ORDERED: DEXTROSE 50%-WATER 50 ML SYRINGE IVP ONE (05:22)
[2017-05-30] MEDS: INSULIN ASPART 100 UNIT/ML 1 ML 10 ML VIAL SQ SCH ×5 (05:32→21:21)
[2017-05-30] MEDS: INSULIN DETEMIR 100 UNIT/ML 10 ML VIAL SQ SCH ×2 (05:32→21:28)
[2017-05-30 05:46] LABS: Glucose,Whole Blood 186 mg/dL (75-99)
--- NOTE | 2017-05-30 07:47 | CONS ---
CONSULTATION DATE OF SERVICE: 05/29/2017 REASON FOR CONSULTATION: Fever. HISTORY OF PRESENT ILLNESS: The patient is a 72-year-old female who was is a intermediate resident brought to the ER at [facility] on the 25 May 2017 for evaluation of blood in the stool. Apparently the patient has 2 episodes of bleeding per rectum that prompted the patient to go to the ER. The patient denies any significant abdominal pain. No nausea, no vomiting, no hematemesis. On arrival to the ER, the patient was afebrile. . She did have a hemoglobin of 5.4 on admission that required multiple blood transfusions. The patient was admitted to the ICU and is status post EGD where the patient noticed to have evidence of duodenitis, gastritis and a small duodenal ulcer which was not bleeding. The patient is status post biopsy. As mentioned earlier , the patient was afebrile on admission; however, the patient did spike a fever of 101.5 degrees Fahrenheit on 28 of May and again same night at 11:00 and another fever this morning at 7:20 that later on prompted ID evaluation. The patient did have a urinary retention with chronic indwelling Melendez catheter that was changed in the ER and on admission the patient noticed to have a positive UA with urine culture did show Ivory albicans and the patient has been on Rocephin since admission with fluconazole added today. I was asked to see the patient for further recommendation regarding this fever. The patient denies any headache. No significant URI symptoms except some sore throat. No cough or chest pain. No abdominal pain and no further bleeding per rectum. REVIEW OF SYSTEMS: CONSTITUTIONAL: Positive for weakness and fever. EYES: No complaint. ENT: As per HPI. RESPIRATORY: As per HPI. CARDIOVASCULAR: No complaint. GENITOURINARY: No complaint. GASTROINTESTINAL: As per HPI. MUSCULOSKELETAL: No complaint. INTEGUMENTARY: No complaint. PSYCHOLOGICAL: No complaint. ENDOCRINE: No complaint. NEUROLOGICAL: No new complaints. PAST MEDICAL HISTORY: Significant for atrial fibrillation, CVA, TIA, diabetes mellitus, gastroesophageal reflux disease, hypertension, osteoarthritis, renal insufficiency, history of horseshoe kidney, hydronephrosis and left adrenal mass, recurrent UTIs. PAST SURGICAL HISTORY: Appendectomy, hysterectomy, cystoscopy with double J catheter placement. SOCIAL HISTORY: No history of smoking, drinking, or drug use. FAMILY HISTORY: Mother with history of coronary disease. The father with history coronary disease and renal disease. ALLERGIES: Allergies to AMOXICILLIN, tolerated Rocephin without any problem. MEDICATION: Medications include the patient is currently on Tylenol, [place], Norvasc, Rocephin, vitamin D3, fluconazole, folic acid, NovoLog, Levemir, Zestril, Lopressor, Narcan, Zofran. PHYSICAL EXAMINATION: On examination, her blood pressure is 114/61 with a pulse of 64, temperature of 99.4, T- max is 101. She is 90% on 3 L nasal cannula. General description is an elderly female lying in bed in no distress. No tachypnea or accessory muscle of respiration use. HEENT examination shows slight pallor. No scleral icterus. Oral mucous membranes is dry. No pharyngeal erythema or thrush NECK: Trachea central, no thyromegaly. LUNGS: Unlabored breathing, clear to auscultation anteriorly. No wheeze or crackle. HEART: S1, S2. Regular rate and rhythm. No loud murmur ABDOMEN: Soft, no tenderness. No guarding. No rigidity. No organomegaly. EXTREMITIES: No edema of the feet. SKIN EXAMINATION: No rash or mass palpable. EXAMINATION OF THE SACRAL AREA: The patient did have a stage II pressure ulcer with no cellulitis. NEUROLOGICAL: Patient is awake, alert, oriented x2. Mood and affect normal. Speech was normal LABS: Hemoglobin 8, hematocrit of 13.0, BUN of 23, creatinine 1.52. Potassium was 3.4. Urine on admission on the was positive showing Ivory albicans. Repeat is also positive with moderate leukocyte esterase in addition to the white cell and bacteria. Influenza A PCR came back positive. Chest x-ray negative for pneumonia. DIAGNOSTIC IMPRESSION AND PLAN: 1. Patient admitted to the hospital with gastrointestinal bleed with evidence of anemia, status post transfusion and EGD with evidence of duodenitis, gastritis and duodenal ulcer status post biopsy with a fever that started in the hospital. Source could be either catheter associated urinary tract infection as patient did have a complicated urinary history with horseshoe kidney, hydronephrosis and an ESBL pathogen in the past. However, the urine showing at this time was mostly Ivory albicans, however it is not clear if the urine sample was collected from the Melendez that she presented to hospital or from new Melendez. Chest x-ray is currently negative for pneumonia. The likely source of fever at this point could be acute influenza infection, more likely acquired in the hospital. 2. Patient with stage II sacral pressure ulcer with no evidence of any cellulitis. PLAN: 1. Tamiflu 75 mg p.o. twice a day for acute influenza A. 2. Repeat UA from [facility] has been collected. Will follow with the results. In the meantime keep the patient on Rocephin 1 gram daily and Diflucan until repeat culture is finalized. 3. Will apply Aquacel Silver dressing to the sacral wound and keep the area off the pressure. 4. We will follow up on clinical condition and culture to further adjust medication if needed. Thank you for this consultation. Will follow this patient along with you. MMODL / IJN: [id number] / OLINDA
[2017-05-30 07:51] LABS: Glucose,Whole Blood 88 mg/dL (75-99)
[2017-05-30] MEDS: FLUCONAZOLE 100 MG TAB PO SCH ×2 (09:16→21:28)
[2017-05-30] MEDS: METOPROLOL TARTRATE 25 MG TAB PO SCH ×3 (09:16→21:25)
[2017-05-30] MEDS: GABAPENTIN 300 MG CAP PO SCH ×3 (09:16→21:25)
[2017-05-30] MEDS: MENTHOL-ZINC OXIDE OINT 113 GM TUBE TOPICAL SCH ×4 (09:16→21:29)
[2017-05-30] MEDS: PANTOPRAZOLE 40 MG/10 ML VIAL IVP SCH ×2 (09:16→09:22)
[2017-05-30] MEDS: PRIMIDONE 50 MG TAB PO SCH ×3 (09:16→21:26)
[2017-05-30] MEDS: REPAGLINIDE 1 MG TAB PO SCH ×4 (09:17→21:26)
[2017-05-30] MEDS: LISINOPRIL 5 MG TAB PO SCH (09:22)
[2017-05-30] MEDS: amLODIPine 10 MG TAB PO SCH (09:22)
[2017-05-30] MEDS: OSELTAMIVIR 75 MG CAP PO SCH ×2 (09:23→21:25)
[2017-05-30 10:27] LABS: Anisocytosis Slight; Basophils % (A) 0 %; Eosinophils # (A) 0.2 k/uL (0-0.7); Eosinophils % (A) 4 %; HCT 29.5 % (34.0-46.0); HGB 9.1 gm/dL (11.4-16.0); Hypochromasia Slight; Lymphocytes # (A) 1.2 k/uL (1.0-4.8); Lymphocytes % (A) 22 %; MCH 27.5 pg (25.0-35.0); MCHC 30.9 g/dL (31.0-37.0); MCV 89.2 fL (80.0-100.0); Mean Platelet Volume 8.6; Monocytes # (A) 0.2 k/uL (0-1.0); Monocytes % (A) 5 %; Neutrophils # (A) 3.6 k/uL (1.3-7.7); Neutrophils % (A) 68 %; Platelet Count 206 k/uL (150-450); RBC 3.31 m/uL (3.80-5.40); RDW 16.8 % (11.5-15.5); WBC 5.4 k/uL (3.8-10.6)
[2017-05-30 10:40] LABS: Calcium 8.1 mg/dL (8.4-10.2); Magnesium 1.7 mg/dL (1.6-2.3); Phosphorus 3.1 mg/dL (2.5-4.5); Potassium 3.8 mmol/L (3.5-5.1)
[2017-05-30 12:28] LABS: Glucose,Whole Blood 153 mg/dL (75-99)
[2017-05-30 12:55] LABS: Troponin I 0.035 ng/mL (0.000-0.034)
[2017-05-30 12:59] LABS: Creatine Kinase MB 0.3 ng/mL (0.0-2.4)
[2017-05-30] MEDS: cefTRIAXone IN SWFI 1,000 MG/10 ML SYRINGE IVP SCH (13:11)
--- NOTE | 2017-05-30 14:12 | P.CRDCN ---
History of Present Illness Consult date: 05/30/17 Consult reason: chest pain History of present illness: Mrs. Walters is a pleasant 72-year-old female past medical history significant for paroxysmal atrial fibrillation on fpc anticoagulation with coumadin, CVA with left sides residual weakness, diabetes mellitus, hypertension and peripheral vascular disease. She denies history of coronary artery disease and has never seen a parent trainer for any reason that she can recall. Her PCP manages her a-fib. We have been asked to see her in consultation for complaints of chest pain. She states this morning while she was sitting up in bed she began feeling a sharp pain under the left axilla. The pain was intermittent all morning. There was no radiation of the pain to the arm , back, neck or shoulders. There was no associated shortness of breath, dizziness, palpitations, diaphoresis, nausea or vomiting. Ultimately the pain has subsided with no specific alleviating factors. The pain was exacerbated by cough but is not reproducible with palpation. EKG this morning reveals sinus mechanism with flattened T-waves inferiorly with no acute ST abnormalities. Chest xray yesterday reveals no focal consolidation suggestive of pneumonia, multi-focal left sided platelike atelectasis and new hilar prominence suggestive of vascular congestion and fluid overload. Laboratory data reviewed, hgb 9.1 up from 5.4 on admission after receiving 4 units PRBCs, plt 206, potassium 3.8, magnesium 1.7, creatinine 1.48, troponin 0.015 on admission then 0.035 this morning. Current cardiac medications include metoprolol 25mg BID, lisinopril 5 mg daily, aspirin 81 mg daily, amlodipine 10 mg daily and coumadin 5mg daily. Aspirin and coumadin have been held since admission. Initial presentation was for blood noted in stool at [facility]. She underwent an EGD per Dr. Redding which revealed no evidence of active bleeding. She is influenza A positive, chronic decubitus ulcer, as well as urinary tract infection and has been having intermittent fevers since admission as well. Review of Systems At the time of my exam: CONSTITUTIONAL: Denies fever. Denies chills. EYES: Denies blurred vision. Denies vision changes. Denies eye pain. EARS, NOSE, MOUTH & THROAT: Denies headache. Denies sore throat. Denies ear pain. CARDIOVASCULAR: Complains of intermittent sharp chest pain. Denies shortness of breath. Denies orthopnea. Denies PND. Denies palpitations. RESPIRATORY: Complains of cough. GASTROINTESTINAL: Denies abdominal pain. Denies diarrhea. Denies constipation. Denies nausea. Denies vomiting. MUSCULOSKELETAL: Denies myalgias. INTEGUMENTARY: Denies pruitis. Denies rash. NEUROLOGIC: Denies numbness. Denies tingling. Denies weakness. PSYCHIATRIC: Denies anxiety. Denies depression. ENDOCRINE: Denies fatigue. Denies weight change. Denies polydipsia. Denies polyurina. GENITOURINARY: Denies burning, hematuria or urgency with micturation. HEMATOLOGIC: Complains of recent blood in stool. Past Medical History Past Medical History: Atrial Fibrillation, CVA/TIA, Diabetes Mellitus, GERD/ Reflux, Hypertension, Osteoarthritis (OA), Renal Disease, Vascular Disorder Additional Past Medical History / Comment(s): Paroxysmal Afib, CVAs with bilateral weakness, IDDM type II, neuropathy bilateral feet, PVD, current pressure sore R heel and R buttock, CKD, horseshoe kidney, hydronephrosis, L adrenal mass being monitored by [facility], chronic UTI, difficulty swallowing pills History of Any Multi-Drug Resistant Organisms: ESBL Date of last positivie culture/infection: 04/23/17 MDRO Source:: urine Past Surgical History: Appendectomy, Hysterectomy Additional Past Surgical History / Comment(s): 05/17/17 cystoscopy with double J stents-had drainage tube but removed couple days ago, past cystoscopies, ureteroscopies, lithotripsy, open kidney surgery for stones, oophorectomy then hysterectomy and remaining ovary removed, picc line since removed, lumbar laminectomy, hemorrhoidectomies, bilateral cataracts removed. Past Anesthesia/Blood Transfusion Reactions: No Reported Reaction Smoking Status: Never smoker - Past Family History Mother Family Medical History: Coronary Artery Disease (CAD) Father Family Medical History: Coronary Artery Disease (CAD), Renal Disease Additional Family Medical History / Comment(s): DIALYSIS. Medications and Allergies Home Medications Medication Instructions Recorded Confirmed Type Aspirin 81 mg PO DAILY@1700 01/26/14 05/25/17 History Gabapentin [Neurontin] 300 mg PO BID 01/26/14 05/25/17 History Metoprolol Tartrate [Lopressor] 25 mg PO BID 01/26/14 05/25/17 History Primidone [Mysoline] 50 mg PO BID 01/26/14 05/25/17 History Acetaminophen [Tylenol] 650 mg PO Q4H PRN 04/21/17 05/25/17 History Bisacodyl [Dulcolax] 10 mg RECTAL DAILY PRN 04/21/17 05/25/17 History Cholecalciferol [Vitamin D3] 1,000 unit PO DAILY@1700 04/21/17 05/25/17 History Folic Acid 1 mg PO DAILY@1700 04/21/17 05/25/17 History Lidocaine 2% Gel [Xylocaine Jelly 1 applic TOPICAL DAILY PRN 04/21/17 05/25/17 History 2%] Magnesium Hydroxide [Milk of 2,400 mg PO DAILY PRN 04/21/17 05/25/17 History Magnesia] Na Phos,M-B/Na Phos,Di-Ba [Fleet 133 ml RECTAL ONCE PRN 04/21/17 05/25/17 History Adult] Repaglinide [Prandin] 0.5 mg PO TID 04/21/17 05/25/17 History amLODIPine [Norvasc] 10 mg PO DAILY 04/21/17 05/25/17 History Menthol/Zinc Oxide [Calmoseptine 1 applic TOPICAL TID 04/23/17 05/25/17 History Ointment] Warfarin [Coumadin] 5 mg PO DAILY@1700 #0 04/26/17 05/25/17 Rx Insulin Glargine [Lantus] 18 unit SQ HS 05/03/17 05/25/17 History Lisinopril [Zestril] 5 mg PO DAILY 05/03/17 05/25/17 History Cephalexin [Keflex] 500 mg PO Q8HR #30 cap 05/10/17 05/25/17 Rx Hydrocodone/Acetaminophen [[place] 1 tab PO Q6HR PRN 05/25/17 05/25/17 History 7.5-325] Allergies Allergy/AdvReac Type Severity Reaction Status Date / Time amoxicillin [Amoxicillin] Allergy Swelling Verified 05/25/17 09:10 Physical Exam Vitals: Vital Signs Temp Pulse Resp BP Pulse Ox 05/30/17 13:01 60 16 115/55 05/30/17 07:00 97.8 F 81 16 114/61 96 05/29/17 23:00 98.4 F 68 24 121/63 92 L 05/29/17 15:10 90 L 05/29/17 15:00 99.4 F 64 16 114/61 86 L Intake and Output 05/29/17 05/30/17 05/30/17 22:59 06:59 14:59 Output Total 500 600 Balance -500 -600 Output: Urine 500 600 Other: Voiding Method Indwelling Catheter Indwelling Catheter # Bowel Movements 2 2 Blood pressure 115/55 heart rate 60 afebrile for the previous 24 hours. Last fever noted yesterday morning 101.1F. GENERAL: This is a 72-year-old female in no apparent distress at the time of my examination. HEENT: Head is atraumatic, normocephalic. Pupils are equal, round. Sclerae anicteric. Conjunctivae are clear. Mucous membranes of the mouth are moist. Neck is supple. There is no jugular venous distention. No carotid bruit is heard. LUNGS: Bibasilar rales left greater than right. No wheezes or rhonchi. No chest wall tenderness is noted on palpation. HEART: Regular rate and rhythm with systolic ejection murmur at the base, no rubs or gallops. S1 and S2 heard. ABDOMEN: Soft, nontender. Bowel sounds are heard. No organomegaly noted. EXTREMITIES: No evidence of peripheral edema and no calf tenderness noted. VASCULAR: Radial and dorsalis pedis pulses palpated, no evidence of clubbing. NEUROLOGIC: Patient is awake, alert and oriented x3. Results 05/30/17 09:43 05/30/17 09:43 Cardiac Enzymes 05/30/17 Range/Units 09:43 CK-MB (CK-2) 0.3 (0.0-2.4) ng/mL Troponin I 0.035 H* (0.000-0.034) ng/mL CBC 05/30/17 Range/Units 09:43 WBC 5.4 (3.8-10.6) k/uL RBC 3.31 L (3.80-5.40) m/uL Hgb 9.1 L (11.4-16.0) gm/dL Hct 29.5 L (34.0-46.0) % Plt Count 206 (150-450) k/uL Comprehensive Metabolic Panel 05/30/17 Range/Units 09:43 Sodium 137 (137-145) mmol/L Potassium 3.8 (3.5-5.1) mmol/L Chloride 110 H (98-107) mmol/L Carbon Dioxide 20 L (22-30) mmol/L BUN 21 H (7-17) mg/dL Creatinine 1.48 H (0.52-1.04) mg/dL Glucose 71 L (74-99) mg/dL Calcium 8.1 L (8.4-10.2) mg/dL Current Medications Generic Name Dose Route Start Last Admin Trade Name Freq PRN Reason Stop Dose Admin Acetaminophen 650 mg 05/25/17 16:06 05/29/17 07:34 Tylenol Tab PO 650 mg Q4H PRN Administration Fever and/ or Pain Hydrocodone Bitart/Acetaminophen 1 each 05/25/17 16:06 05/26/17 21:02 [place] 7.5-325 PO 1 each Q6HR PRN Administration Pain Amlodipine Besylate 10 mg 05/26/17 09:00 05/30/17 09:22 Norvasc PO 10 mg DAILY [facility] Administration Calamine/Phenol 1 applic 05/25/17 22:00 05/30/17 09:26 Risamine Oint TOPICAL 1 applic TID [facility] Administration Ceftriaxone Sodium 1,000 mg 05/28/17 13:00 05/30/17 13:11 Rocephin IVP 1,000 mg DAILY@1200 [facility] Administration Cholecalciferol 1,000 unit 05/27/17 17:00 05/29/17 16:38 Vitamin D3 PO 1,000 unit DAILY@1700 [facility] Administration Fluconazole 200 mg 05/29/17 21:00 05/30/17 09:16 Diflucan PO Not Given HS [facility] Folic Acid 1 mg 05/27/17 17:00 05/29/17 16:38 Folic Acid PO 1 mg DAILY@1700 [facility] Administration Gabapentin 300 mg 05/25/17 21:00 05/30/17 09:22 Neurontin PO 300 mg BID [facility] Administration Insulin Aspart 0 unit 05/26/17 21:00 05/30/17 13:10 Novolog SQ 1 unit ACHS [facility] Administration Protocol Insulin Detemir 18 unit 05/29/17 06:36 05/30/17 05:32 Levemir SQ Not Given HS [facility] Lidocaine HCl 1 applic 05/26/17 23:23 Xylocaine Jelly 2% TOPICAL DAILY PRN Pain Lisinopril 5 mg 05/26/17 09:00 05/30/17 09:22 Zestril PO 5 mg DAILY [facility] Administration Magnesium Hydroxide 2,400 mg 05/26/17 23:23 Milk Of Magnesia PO DAILY PRN Constipation Metoprolol Tartrate 25 mg 05/25/17 21:00 05/30/17 09:23 Lopressor PO 25 mg BID [facility] Administration Naloxone HCl 0.2 mg 05/25/17 12:33 Narcan IV Q2M PRN Opioid Reversal Ondansetron HCl 4 mg 05/25/17 08:48 Zofran IVP Q6HR PRN Nausea And Vomiting Oseltamivir Phosphate 75 mg 05/29/17 16:15 05/30/17 09:23 Tamiflu PO 06/03/17 09:01 75 mg Q12HR [facility] Administration Pantoprazole Sodium 40 mg 05/25/17 09:00 05/30/17 09:22 Protonix IVP 40 mg BID [facility] Administration Primidone 50 mg 05/25/17 21:00 05/30/17 09:23 Mysoline PO 50 mg BID [facility] Administration Repaglinide 0.5 mg 05/27/17 09:00 05/30/17 09:23 Prandin PO 0.5 mg TID [facility] Administration Intake and Output 05/29/17 05/30/17 05/30/17 22:59 06:59 14:59 Output Total 500 600 Balance -500 -600 Output: Urine 500 600 Other: Voiding Method Indwelling Catheter Indwelling Catheter # Bowel Movements 2 2 05/30/17 09:43 05/30/17 09:43 Assessment and Plan Assessment: ASSESSMENT 1. Chest pain, atypical with mild troponin elevation 2. Paroxysmal atrial fibrillation, currently maintaining sinus mechanism 3. Hypertension, controlled on amlodipine and lisinopril 4. History of CVA with left sided residual weakness 5. Acute blood loss anemia s/p blood transfusions 6. Acute on chronic renal failure, stage 7. Urinary tract infection PLAN Obtain 2D echocardiogram and doppler study to assess cardiac structure and function. Repeat troponin to evaluate a trend. Check D-dimer to rule out pulmonary embolism Coumadin should be restarted whenever is possible per GI. Troponin elevation may be secondary to acute blood loss anemia. Further recommendations will be based upon clinical course. Nurse Practitioner note has been reviewed, I agree with a documented findings and plan of care. Patient was seen and examined.
[2017-05-30 15:06] VITALS: BMI 27.6
--- NOTE | 2017-05-30 15:54 | P.PN ---
Subjective Progress Note Date: 05/29/17 Progress note being dictated for Dr. Hardin. Interval history this is a 72-year-old female admitted with acute upper GI bleed , acute influenza a and multiple other medical issues. Chest x-ray reporting multifocal left-sided platelike subsegmental atelectasis, new hilar prominence possible central pulmonary vascular congestion and fluid overload, pulmonary hypertension or adenopathy. No recurrent bleeding, hemoglobin 9.2, with anticoagulation on hold. Status post EGD, Biopsies pending. Tolerating diet with no nausea vomiting or diarrhea. Denies abdominal pain. Denies chest pain , palpitations. Denies shortness of breath. Evaluated by infectious disease with recommendations noted. > Objective - Vital Signs Vital signs: Vital Signs Temp 99.4 F 05/29/17 15:00 Pulse 64 05/29/17 15:00 Resp 16 05/29/17 15:00 BP 114/61 05/29/17 15:00 Pulse Ox 90 L 05/29/17 15:10 Intake & Output 05/28/17 05/29/17 05/29/17 18:59 06:59 18:59 Intake Total 350 Output Total 950 325 600 Balance -600 -325 -600 Weight 80 kg Intake: Oral 350 Output: Urine 950 325 600 Other: Voiding Method Indwelling Catheter Indwelling Catheter Indwelling Catheter # Voids 375 # Bowel Movements 2 0 2 - Exam PHYSICAL EXAM: VITAL SIGNS: As above GENERAL: Sitting up in bed, more alert today, HEENT: Conjunctivae normal. eyes normal. Oral mucosa moist NECK: No JVD. No thyroid enlargement. No LNs CARDIOVASCULAR: S1, S2 muffled. Positive systolic murmur RESPIRATION: Breath sounds diminished in the bases. Occasional scattered rhonchi, no crackles ABDOMEN: Soft, nontender . No guarding. no masses palpable. Bowel sounds heard. LEGS: No edema. no swelling PSYCHIATRY: Alert and oriented -2, mood and affect normal. NERVOUS SYSTEM: Cranial N 2-12 grossly normal. Moves all limbs. Diffuse weakness No focal deficits. No sensory deficit. Skin: Stage II right buttock ulcer Joints: No active swelling. No inflammation. Lymphatic system. No LN neck axilla or groin. - Labs CBC & Chem 7: 05/30/17 09:43 05/30/17 09:43 Labs: Abnormal Lab Results - Last 24 Hours (Table) 05/28/17 05/28/17 05/28/17 Range/Units 20:47 21:02 21:39 RBC (3.80-5.40) m/uL Hgb (11.4-16.0) gm/dL Hct (34.0-46.0) % RDW (11.5-15.5) % Lymphocytes # (1.0-4.8) k/uL Potassium (3.5-5.1) mmol/L Chloride (98-107) mmol/L Carbon Dioxide (22-30) mmol/L BUN (7-17) mg/dL Creatinine (0.52-1.04) mg/dL Glucose (74-99) mg/dL POC Glucose (mg/dL) 58 L 61 L 101 H (75-99) mg/dL Calcium (8.4-10.2) mg/dL Urine Appearance (Clear) Urine Protein (Negative) Urine Glucose (UA) (Negative) Urine Blood (Negative) Ur Leukocyte Esterase (Negative) Urine RBC (0-5) /hpf Urine WBC (0-5) /hpf Urine WBC Clumps (None) /hpf Urine Bacteria (None) /hpf Urine Mucus (None) /hpf Urine Yeast (Budding) (None) /hpf Influenza Type A RNA (Not Detectd) 05/29/17 05/29/17 05/29/17 Range/Units 09:13 09:13 12:13 RBC 3.27 L (3.80-5.40) m/uL Hgb 9.2 L (11.4-16.0) gm/dL Hct 28.7 L (34.0-46.0) % RDW 16.9 H (11.5-15.5) % Lymphocytes # 0.6 L (1.0-4.8) k/uL Potassium 3.4 L (3.5-5.1) mmol/L Chloride 110 H (98-107) mmol/L Carbon Dioxide 20 L (22-30) mmol/L BUN 23 H (7-17) mg/dL Creatinine 1.52 H (0.52-1.04) mg/dL Glucose 100 H (74-99) mg/dL POC Glucose (mg/dL) 45 L (75-99) mg/dL Calcium 8.1 L (8.4-10.2) mg/dL Urine Appearance (Clear) Urine Protein (Negative) Urine Glucose (UA) (Negative) Urine Blood (Negative) Ur Leukocyte Esterase (Negative) Urine RBC (0-5) /hpf Urine WBC (0-5) /hpf Urine WBC Clumps (None) /hpf Urine Bacteria (None) /hpf Urine Mucus (None) /hpf Urine Yeast (Budding) (None) /hpf Influenza Type A RNA (Not Detectd) 05/29/17 05/29/17 05/29/17 Range/Units 12:35 12:45 15:08 RBC (3.80-5.40) m/uL Hgb (11.4-16.0) gm/dL Hct (34.0-46.0) % RDW (11.5-15.5) % Lymphocytes # (1.0-4.8) k/uL Potassium (3.5-5.1) mmol/L Chloride (98-107) mmol/L Carbon Dioxide (22-30) mmol/L BUN (7-17) mg/dL Creatinine (0.52-1.04) mg/dL Glucose (74-99) mg/dL POC Glucose (mg/dL) 166 H (75-99) mg/dL Calcium (8.4-10.2) mg/dL Urine Appearance Cloudy H (Clear) Urine Protein 1+ H (Negative) Urine Glucose (UA) Trace H (Negative) Urine Blood Trace H (Negative) Ur Leukocyte Esterase Large H (Negative) Urine RBC 60 H (0-5) /hpf Urine WBC >182 H (0-5) /hpf Urine WBC Clumps Few H (None) /hpf Urine Bacteria Moderate H (None) /hpf Urine Mucus Rare H (None) /hpf Urine Yeast (Budding) Many H (None) /hpf Influenza Type A RNA Detected H (Not Detectd) Microbiology - Last 24 Hours (Table) 05/27/17 15:00 Urine Culture - Final Urine,Catheterized Iv[place] albicans Assessment and Plan Assessment: 1. Acute upper GI bleed with acute blood loss anemia status post multiple transfusions, possible gastritis, duodenitis and duodenal bulb ulcer 2 acute influenza and 3. Acute UTI in a patient with chronic [place] 4 status post EGD 5 acute on chronic renal failure, stage III 6.Left-sided residual weakness from prior stroke 7. Diabetes mellitus type 2 8. Gastroesophageal reflux disease 9. Stage II decubitus ulcer, right hip, present on admission 10. Proximal atrial fibrillation, chronic Plan: Continue on current medication regime, Tamiflu, antibiotics, PPI, monitoring and symptomatic treatment. Resume anticoagulation as per GI. Close monitoring of hemoglobin, renal function, electrolytes with repeat labs ordered for a.m. Discharge planning in progress for subacute rehab, possibly tomorrow. The impression and plan of care has been dictated as directed. : I performed a history and examination of this patient, discussed the same with the dictator. I agree with the dictator's note ,documented as a scribe. Any additional findings or plans will be noted.
--- NOTE | 2017-05-30 16:12 | P.PN ---
Subjective Progress Note Date: 05/30/17 Progress note being dictated for Dr. Hardin. Interval history this is a 72-year-old female admitted with acute upper GI bleed , acute influenza a and multiple other medical issues. Chest x-ray reporting multifocal left-sided platelike subsegmental atelectasis, new hilar prominence possible central pulmonary vascular congestion and fluid overload, pulmonary hypertension or adenopathy. No recurrent bleeding, hemoglobin 9.2, with anticoagulation on hold. Status post EGD, Biopsies pending. Tolerating diet with no nausea vomiting or diarrhea. Denies abdominal pain. Denies chest pain , palpitations. Denies shortness of breath. Evaluated by infectious disease with recommendations noted. 05/30/2017 remains afebrile, maintained on Rocephin. Hemoglobin stable, 9.2. Developed left sided chest pain, EKG, troponins, cardiology consult ordered. First troponin elevated. Denies dizziness lightheadedness or focal deficits. Currently denies chest pain, palpitations or shortness of breath. > Objective - Vital Signs Vital signs: Vital Signs Temp 97.1 F L 05/30/17 15:00 Pulse 85 05/30/17 15:00 Resp 16 05/30/17 15:00 BP 124/74 05/30/17 15:00 Pulse Ox 95 05/30/17 15:00 Intake & Output 05/29/17 05/30/17 05/30/17 18:59 06:59 18:59 Intake Total 440 Output Total 600 1100 650 Balance -600 -1100 -210 Weight 80 kg Intake: Oral 440 Output: Urine 600 1100 650 Other: Voiding Method Indwelling Catheter Indwelling Catheter Indwelling Catheter # Bowel Movements 2 2 3 - Exam PHYSICAL EXAM: VITAL SIGNS: As above GENERAL: Sitting up in bed, more alert today, HEENT: Conjunctivae normal. eyes normal. Oral mucosa moist NECK: No JVD. No thyroid enlargement. No LNs CARDIOVASCULAR: S1, S2 muffled. Positive systolic murmur RESPIRATION: Breath sounds diminished in the bases. Occasional scattered rhonchi, occasional fine bibasilar crackles ABDOMEN: Soft, nontender . No guarding. no masses palpable. Bowel sounds heard. LEGS: No edema. no swelling PSYCHIATRY: Alert and oriented -2, mood and affect normal. NERVOUS SYSTEM: Cranial N 2-12 grossly normal. Moves all limbs. Diffuse weakness No focal deficits. No sensory deficit. Skin: Stage II right buttock ulcer Joints: No active swelling. No inflammation. Lymphatic system. No LN neck axilla or groin. - Labs CBC & Chem 7: 05/30/17 09:43 05/30/17 09:43 Labs: Abnormal Lab Results - Last 24 Hours (Table) 05/30/17 05/30/17 05/30/17 Range/Units 05:19 05:45 09:43 RBC 3.31 L (3.80-5.40) m/uL Hgb 9.1 L (11.4-16.0) gm/dL Hct 29.5 L (34.0-46.0) % MCHC 30.9 L (31.0-37.0) g/dL RDW 16.8 H (11.5-15.5) % D-Dimer (<0.60) mg/L FEU Chloride (98-107) mmol/L Carbon Dioxide (22-30) mmol/L BUN (7-17) mg/dL Creatinine (0.52-1.04) mg/dL Glucose (74-99) mg/dL POC Glucose (mg/dL) 68 L 186 H (75-99) mg/dL Calcium (8.4-10.2) mg/dL Troponin I (0.000-0.034) ng/mL 05/30/17 05/30/17 05/30/17 Range/Units 09:43 09:43 12:02 RBC (3.80-5.40) m/uL Hgb (11.4-16.0) gm/dL Hct (34.0-46.0) % MCHC (31.0-37.0) g/dL RDW (11.5-15.5) % D-Dimer (<0.60) mg/L FEU Chloride 110 H (98-107) mmol/L Carbon Dioxide 20 L (22-30) mmol/L BUN 21 H (7-17) mg/dL Creatinine 1.48 H (0.52-1.04) mg/dL Glucose 71 L (74-99) mg/dL POC Glucose (mg/dL) 153 H (75-99) mg/dL Calcium 8.1 L (8.4-10.2) mg/dL Troponin I 0.035 H* (0.000-0.034) ng/mL 05/30/17 Range/Units 15:27 RBC (3.80-5.40) m/uL Hgb (11.4-16.0) gm/dL Hct (34.0-46.0) % MCHC (31.0-37.0) g/dL RDW (11.5-15.5) % D-Dimer 2.80 H (<0.60) mg/L FEU Chloride (98-107) mmol/L Carbon Dioxide (22-30) mmol/L BUN (7-17) mg/dL Creatinine (0.52-1.04) mg/dL Glucose (74-99) mg/dL POC Glucose (mg/dL) (75-99) mg/dL Calcium (8.4-10.2) mg/dL Troponin I (0.000-0.034) ng/mL Microbiology - Last 24 Hours (Table) 05/29/17 12:33 Blood Culture - Preliminary Blood No Growth after 24 hours 05/29/17 15:08 Urine Culture - Preliminary Urine,Catheterized Assessment and Plan Assessment: 1. Acute upper GI bleed with acute blood loss anemia status post multiple transfusions, possible gastritis, duodenitis and duodenal bulb ulcer 2 acute influenza and 3. Acute UTI in a patient with chronic [place] 4 status post EGD 5 acute on chronic renal failure, stage III 6.Left-sided residual weakness from prior stroke 7. Diabetes mellitus type 2 8. Gastroesophageal reflux disease 9. Stage II decubitus ulcer, right hip, present on admission 10. Proximal atrial fibrillation, chronic 11. Chest pain, workup in progress Plan: Continue on current medication regime, Tamiflu, antibiotics, PPI, monitoring and symptomatic treatment. Chest pain workup in progress with, first troponin elevated, serial troponins in place. D-dimer pending. Antibiotics and wound care as per infectious disease. The impression and plan of care has been dictated as directed. : I performed a history and examination of this patient, discussed the same with the dictator. I agree with the dictator's note ,documented as a scribe. Any additional findings or plans will be noted.
[2017-05-30 17:28] LABS: Glucose,Whole Blood 102 mg/dL (75-99)
--- NOTE | 2017-05-30 17:39 | ECHOF ---
Referral Reason:chest pain MEASUREMENTS -------- HEIGHT: 170.2 cm WEIGHT: 79.8 kg BP: 115/55 RVIDd: 3.9 cm (< 3.3) IVSd: 1.4 cm (0.6 - 1.1) LVIDd: 4.2 cm (3.9 - 5.3) LVPWd: 1.2 cm (0.6 - 1.1) IVSs: 1.7 cm LVIDs: 3.2 cm LVPWs: 1.2 cm LAESV Index (A-L): 28.49 ml/m Ao Diam: 3.5 cm (2.0 - 3.7) AV Cusp: 1.5 cm (1.5 - 2.6) LA Diam: 4.2 cm (2.7 - 3.8) EPSS: 0.8 cm MV E Misael: 0.77 m/s MV DecT: 253 ms MV A Misael: 0.89 m/s MV E/A Ratio: 0.86 RAP: 5.00 mmHg RVSP: 24.47 mmHg MV EF SLOPE: 44.40 mm/s (70 - 150) MV EXCURSION: 1.07 cm (> 18.000) FINDINGS -------- Sinus rhythm. This was a technically adequate study. The left ventricular size is normal. There is mild concentric left ventricular hypertrophy. Overa ll left ventricular systolic function is normal with, an EF between 55 - 60 %. The right ventricle is mildly enlarged. The right ventricular systolic function is normal. Normal LA size by volume 22+/-6 ml/m2. The right atrium is normal in size. Aortic valve is trileaflet and is mildly thickened. There is no evidence of aortic regurgitation. There is no evidence of aortic stenosis. The mitral valve leaflets are mildly thickened. There is trace to mild mitral regurgitation. Trace tricuspid regurgitation present. Right ventricular systolic pressure is normal at < 35 mmHg. There is no evidence of pulmonary hypertension. The pulmonic valve was not well visualized. The aortic root size is normal. Normal inferior vena cava with normal inspiratory collapse consistent with estimated right atrial pre ssure of 5 mmHg. There is a small pericardial effusion is located near the right ventricle. CONCLUSIONS -------- 1. Sinus rhythm. 2. This was a technically adequate study. 3. The left ventricular size is normal. 4. There is mild concentric left ventricular hypertrophy. 5. Overall left ventricular systolic function is normal with, an EF between 55 - 60 %. 6. The right ventricle is mildly enlarged. 7. Normal LA size by volume 22+/-6 ml/m2. 8. Aortic valve is trileaflet and is mildly thickened. 9. The mitral valve leaflets are mildly thickened. 10. There is trace to mild mitral regurgitation. 11. Trace tricuspid regurgitation present. 12. Right ventricular systolic pressure is normal at < 35 mmHg. 13. There is no evidence of pulmonary hypertension. 14. The pulmonic valve was not well visualized. 15. The aortic root size is normal. 16. There is a small pericardial effusion is located near the right ventricle. CREDIT INTERN: Juan David Danielle RDCS
[2017-05-30] MEDS: FOLIC ACID 1 MG TAB PO SCH (17:53)
[2017-05-30] MEDS: CHOLECALCIFEROL 1,000 UNIT TAB PO SCH (17:53)
--- NOTE | 2017-05-30 18:50 | PN ---
PROGRESS NOTE DATE OF SERVICE: 05/30/2017 REASON FOR FOLLOWUP: 1. Acute influenza A. 2. Urinary tract infection. 3. Sacral wound. INTERVAL HISTORY: The patient overall feels better and has improved. She is breathing comfortably. Denies significant chest pain. Occasional cough. No nausea or vomiting. No abdominal pain or any diarrhea. PHYSICAL EXAMINATION: Blood pressure 158/55 with a pulse of 60 temperature 97.8. She is 96% 3 L nasal cannula. General description is an elderly female lying in bed in no distress. RESPIRATORY SYSTEM: Unlabored breathing. Clear to auscultation anteriorly. HEART: S1, S2. Regular rate and rhythm. ABDOMEN: Soft. No tenderness. EXTREMITIES: No edema of feet. LABS: Hemoglobin 9.1, white count 5.4 with a BUN of 21, creatinine 1.48. Repeat urine culture is currently pending. Initial was Ivory albicans. DIAGNOSTIC IMPRESSION AND PLAN: 1. Patient with a fever. Source is likely acute influenza A plus/minus a component of catheter-associated UTI. Initial culture was Ivory albicans. Repeat is currently pending. Will keep the patient on Rocephin, Diflucan and Tamiflu. 2. Patient with stage II sacral pressure ulcer. Local wound care with Aquacel Silver dressing. Keep the area off the pressure. MMODL / IJN: [id number] /
--- NOTE | 2017-05-30 19:41 | NM ---
EXAMINATION TYPE: NM pul vent and perfuse DATE OF EXAM: 05/30/2017 COMPARISON: Chest radiographs 05/29/2017 HISTORY: Dyspnea with clinical suspicion for pulmonary embolism TECHNIQUE: Utilizing inhalation of 64.2 mCi Tc 99m DTPA aerosol and intravenous injection of 5.5 mCi of Tc 99m MAA, ventilation and perfusion images are acquired post injection in multiple projections. FINDINGS: There is a mildly heterogeneous distribution of the radiopharmaceutical activity on the mul tiplanar perfusion images. There is also mild heterogeneity to the distribution of the radiopharmaceutical activity on the lung ventilation multiplanar images. However, there is no evidence of mismatched defects. IMPRESSION: Low probability for the diagnosis of pulmonary embolism.
[2017-05-30] MEDS ORDERED: PANTOPRAZOLE 40 MG/10 ML VIAL IVP SCH (21:00)
[2017-05-30 21:03] LABS: Glucose,Whole Blood 81 mg/dL (75-99)
[2017-05-30] MEDS: PANTOPRAZOLE 40 MG TABLET PO SCH (21:26)
[2017-05-31 07:54] LABS: Glucose,Whole Blood 75 mg/dL (75-99)
[2017-05-31 09:03] VITALS: BP 125/62; PULSE 54; RESP 18; TEMP 98.9
[2017-05-31] MEDS: INSULIN ASPART 100 UNIT/ML 1 ML 10 ML VIAL SQ SCH ×3 (09:15→18:00)
[2017-05-31] MEDS: LISINOPRIL 5 MG TAB PO SCH (09:48)
[2017-05-31] MEDS: METOPROLOL TARTRATE 25 MG TAB PO SCH (09:48)
[2017-05-31] MEDS: PRIMIDONE 50 MG TAB PO SCH (09:48)
[2017-05-31] MEDS: OSELTAMIVIR 75 MG CAP PO SCH (09:48)
[2017-05-31] MEDS: GABAPENTIN 300 MG CAP PO SCH (09:48)
[2017-05-31] MEDS: PANTOPRAZOLE 40 MG TABLET PO SCH (09:48)
[2017-05-31] MEDS: amLODIPine 10 MG TAB PO SCH (09:49)
[2017-05-31] MEDS: REPAGLINIDE 1 MG TAB PO SCH ×2 (09:49→17:01)
[2017-05-31] MEDS: MENTHOL-ZINC OXIDE OINT 113 GM TUBE TOPICAL SCH ×2 (09:50→17:02)
[2017-05-31 11:06] LABS: Potassium 3.8 mmol/L (3.5-5.1)
[2017-05-31 11:29] LABS: Basophils % (A) 0 %; Eosinophils # (A) 0.2 k/uL (0-0.7); Eosinophils % (A) 3 %; HCT 29.7 % (34.0-46.0); HGB 9.1 gm/dL (11.4-16.0); Hypochromasia Moderate; Lymphocytes # (A) 1.2 k/uL (1.0-4.8); Lymphocytes % (A) 21 %; MCH 27.7 pg (25.0-35.0); MCHC 30.6 g/dL (31.0-37.0); MCV 90.4 fL (80.0-100.0); Mean Platelet Volume 9.7; Monocytes # (A) 0.3 k/uL (0-1.0); Monocytes % (A) 6 %; Neutrophils # (A) 3.8 k/uL (1.3-7.7); Neutrophils % (A) 67 %; Platelet Count 170 k/uL (150-450); RBC 3.28 m/uL (3.80-5.40); RDW 15.6 % (11.5-15.5); WBC 5.6 k/uL (3.8-10.6)
[2017-05-31 12:01] LABS: Glucose,Whole Blood 224 mg/dL (75-99)
[2017-05-31] MEDS: cefTRIAXone IN SWFI 1,000 MG/10 ML SYRINGE IVP SCH (13:07)
--- NOTE | 2017-05-31 14:58 | P.PN ---
Subjective Progress Note Date: 05/31/16 Mrs. Walters is a pleasant 72-year-old female past medical history significant for paroxysmal atrial fibrillation on nursing home anticoagulation with coumadin, CVA with left sides residual weakness, diabetes mellitus, hypertension and peripheral vascular disease. She denies history of coronary artery disease and has never seen a foreign student adviser for any reason that she can recall. Her PCP manages her a-fib. We have been asked to see her in consultation for complaints of chest pain. She states this morning while she was sitting up in bed she began feeling a sharp pain under the left axilla. The pain was intermittent all morning. There was no radiation of the pain to the arm , back, neck or shoulders. There was no associated shortness of breath, dizziness, palpitations, diaphoresis, nausea or vomiting. Ultimately the pain has subsided with no specific alleviating factors. The pain was exacerbated by cough but is not reproducible with palpation. EKG this morning reveals sinus mechanism with flattened T-waves inferiorly with no acute ST abnormalities. Chest xray yesterday reveals no focal consolidation suggestive of pneumonia, multi-focal left sided platelike atelectasis and new hilar prominence suggestive of vascular congestion and fluid overload. Laboratory data reviewed, hgb 9.1 up from 5.4 on admission after receiving 4 units PRBCs, plt 206, potassium 3.8, magnesium 1.7, creatinine 1.48, troponin 0.015 on admission then 0.035 this morning. Current cardiac medications include metoprolol 25mg BID, lisinopril 5 mg daily, aspirin 81 mg daily, amlodipine 10 mg daily and coumadin 5mg daily. Aspirin and coumadin have been held since admission. Initial presentation was for blood noted in stool at [facility]. She underwent an EGD per Dr. Redding which revealed no evidence of active bleeding. She is influenza A positive, chronic decubitus ulcer, as well as urinary tract infection and has been having intermittent fevers since admission as well. 05/31/2017 Mrs. Walters is seen today in follow-up. D-dimer was found to be elevated, VQ scan was ordered and revealed low probability for PE. Third troponin 0.026. This trend is not indicative of an acute coronary event. 2D echocardiogram performed reveals preserved left ventricular systolic function with ejection fraction 55-60%. There is no evidence of valvular heart disease. She denies symptoms suggestive of angina. There is no complaints of chest pain, shortness of breath, dizziness, palpitations, diaphoresis, nausea or vomiting. Objective - Vital Signs Vital signs: Vital Signs Temp 98.9 F 05/31/17 07:00 Pulse 54 L 05/31/17 07:00 Resp 18 05/31/17 07:00 BP 125/62 05/31/17 07:00 Pulse Ox 91 L 05/31/17 07:00 Intake & Output 05/30/17 05/31/17 05/31/17 18:59 06:59 18:59 Intake Total 440 Output Total 650 1675 Balance -210 -1675 Weight 80 kg Intake: Oral 440 Output: Urine 650 1675 Other: Voiding Method Indwelling Catheter Indwelling Catheter # Bowel Movements 3 4 1 - Exam Blood pressure 125/62 heart rate 54 and afebrile GENERAL: Well-appearing, well-nourished and in no acute distress. NECK: Supple without JVD or thyromegaly. LUNGS: Breath sounds clear to auscultation bilaterally. Respiration equal and unlabored. No wheezes, rales or rhonchi. HEART: Regular rate and rhythm with systolic ejection murmur at the base, no rubs or gallops. S1 and S2 heard. EXTREMITIES: Normal range of motion, no edema. No clubbing or cyanosis. Peripheral pulses intact and strong. - Labs CBC & Chem 7: 05/31/17 10:25 05/31/17 10:25 Labs: Abnormal Lab Results - Last 24 Hours (Table) 05/30/17 05/30/17 05/31/17 Range/Units 15:27 17:24 10:25 RBC (3.80-5.40) m/uL Hgb (11.4-16.0) gm/dL Hct (34.0-46.0) % MCHC (31.0-37.0) g/dL RDW (11.5-15.5) % D-Dimer 2.80 H (<0.60) mg/L FEU Chloride 110 H (98-107) mmol/L Carbon Dioxide 19 L (22-30) mmol/L BUN 21 H (7-17) mg/dL Creatinine 1.44 H (0.52-1.04) mg/dL Glucose 180 H (74-99) mg/dL POC Glucose (mg/dL) 102 H (75-99) mg/dL Calcium 8.0 L (8.4-10.2) mg/dL 05/31/17 05/31/17 Range/Units 10:25 11:58 RBC 3.28 L (3.80-5.40) m/uL Hgb 9.1 L (11.4-16.0) gm/dL Hct 29.7 L (34.0-46.0) % MCHC 30.6 L (31.0-37.0) g/dL RDW 15.6 H (11.5-15.5) % D-Dimer (<0.60) mg/L FEU Chloride (98-107) mmol/L Carbon Dioxide (22-30) mmol/L BUN (7-17) mg/dL Creatinine (0.52-1.04) mg/dL Glucose (74-99) mg/dL POC Glucose (mg/dL) 224 H (75-99) mg/dL Calcium (8.4-10.2) mg/dL Microbiology - Last 24 Hours (Table) 05/29/17 12:33 Blood Culture - Preliminary Blood No Growth after 48 hours 05/29/17 15:08 Urine Culture - Preliminary Urine,Catheterized Yeast species Gram Neg Bacilli Assessment and Plan Assessment: ASSESSMENT 1. Chest pain, atypical with mild troponin elevation 2. Paroxysmal atrial fibrillation, currently maintaining sinus mechanism 3. Hypertension, controlled on amlodipine and lisinopril 4. History of CVA with left sided residual weakness 5. Acute blood loss anemia s/p blood transfusions 6. Acute on chronic renal failure, stage 7. Urinary tract infection PLAN Mild troponin elevation is not indicative of an acute coronary event. This may be secondary to acute blood loss anemia. From a cardiac perspective she is stable for discharge back to ECF. Coumadin should be restarted as soon as his cleared per GI. Follow-up with Dr. Paul in 2-3 weeks. Nurse Practitioner note has been reviewed, I agree with a documented findings and plan of care. Patient was seen and examined.
[2017-05-31] MEDS: CHOLECALCIFEROL 1,000 UNIT TAB PO SCH (17:01)
[2017-05-31] MEDS: FOLIC ACID 1 MG TAB PO SCH (17:02)
--- NOTE | 2017-05-31 17:06 | PN ---
PROGRESS NOTE DATE OF SERVICE: 05/31/2016. REASON FOR FOLLOWUP: 1. Acute influenza A. 2. Catheter associated urinary tract infection. 3. Stage II sacral wound. INTERVAL HISTORY: The patient is afebrile. She has been breathing comfortably. Denies significant chest pain. Occasional cough. No abdominal pain. No diarrhea. EXAMINATION: Blood pressure 125/62 with a pulse of 84, temperature of 98.9. She is 91% on room air. General description is an elderly female, lying in bed in no distress. Respiratory system unlabored breathing. Clear to auscultation anteriorly. Heart S1, S2 regular rate and rhythm. Abdomen soft, no tenderness. LABS: Hemoglobin is 9.1, white count 5.6, BUN of 21, creatinine 1.44. DIAGNOSTIC IMPRESSION AND PLAN: Patient with fever, source is multifactorial. Patient likely component of an acute influenza A and possibility of a catheter associated UTI. Urine showing predominantly Ivory albicans. Melendez catheter already changed. We will recommend therapy with oral Tamiflu for another 3 days along with oral Diflucan for about 5-7 days. Continue supportive care. MMODL / IJN: [id number] /
[2017-05-31 17:33] LABS: Glucose,Whole Blood 103 mg/dL (75-99)
--- NOTE | 2017-05-31 18:05 | P.DS ---
Providers Date of admission: 05/25/17 08:46 Expected date of discharge: 05/31/17 Attending physician: Raheem Hardin. Consults: 05/25/17 11:45 Consult Physician Routine Consulting Provider: Jose Daniel Louis Consult Reason/Comments: icu Do you want consulting provider notified?: Yes 05/29/17 12:12 Consult Physician Routine Consulting Provider: Mary Sullivan Consult Reason/Comments: temp Do you want consulting provider notified?: Yes 05/30/17 13:03 Consult Physician Stat Consulting Provider: [facility] Consult Reason/Comments: chest pain, trops 0.035 Do you want consulting provider notified?: Yes Primary care physician: [facility] Hospital Course: Final Diagnoses: 1. Acute upper GI bleed with acute blood loss anemia status post multiple transfusions, possible gastritis, duodenitis and duodenal bulb ulcer 2 acute influenza and 3. Acute UTI in a patient with chronic Melendez 4 status post EGD 5 acute on chronic renal failure, stage III 6.Left-sided residual weakness from prior stroke 7. Diabetes mellitus type 2 8. Gastroesophageal reflux disease 9. Stage II decubitus ulcer, right hip, present on admission 10. Proximal atrial fibrillation, chronic 11. chest pain, mild troponin elevation,atypical as per cardiology Hospital course:this is a 72-year-old female admitted with acute upper GI bleed , acute influenza a and multiple other medical issues. Evaluated by GI, infectious disease and cardiology. Chest x-ray reporting multifocal left-sided platelike subsegmental atelectasis, new hilar prominence possible central pulmonary vascular congestion and fluid overload, pulmonary hypertension or adenopathy. No recurrent bleeding, hemoglobin 9.1, with anticoagulation on hold. Status post EGD, Biopsies pending. Endoscopies reported possible gastritis, duodenitis and duodenal bulb ulcer, therefore Coumadin and aspirin remain on hold, to be resumed by PCP at subacute rehab in 5 days. Received IV antibiotics. Significant clinical improvement. Patient has been cleared by all consults for discharge. Patient is being discharged to [facility] subacute rehab in a stable condition with guarded prognosis. Physical exam: VSS, LUNGS: Breath sounds clear to auscultation bilaterally. Respiration equal and unlabored. No rales, scattered rhonchi.HEART: Regular rate and rhythm with systolic ejection murmur, no rubs or gallops. S1 and S2 heard. No edema. The impression and plan of care has been dictated as directed. : I performed a history and examination of this patient, discussed the same with the dictator. I agree with the dictator's note ,documented as a scribe. Any additional findings or plans will be noted. Time taken: 35 minutes > Patient Condition at Discharge: Stable Plan - Discharge Summary Discharge Rx Participant: No New Discharge Prescriptions: New Fluconazole [Diflucan] 100 mg PO DAILY #7 tab Pantoprazole [Protonix] 40 mg PO BID tablet. Oseltamivir 6Mg/ml Oral Susp [Tamiflu] 30 mg PO Q12HR #6 oral.syrg INSULIN LISPRO (HumaLOG) [humaLOG] 0 unit SQ ACHS #1 vial Continue Metoprolol Tartrate [Lopressor] 25 mg PO BID Gabapentin [Neurontin] 300 mg PO BID Primidone [Mysoline] 50 mg PO BID Lidocaine 2% Gel [Xylocaine Jelly 2%] 1 applic TOPICAL DAILY PRN PRN Reason: Pain Na Phos,M-B/Na Phos,Di-Ba [Fleet Adult] 133 ml RECTAL ONCE PRN PRN Reason: Constipation Bisacodyl [Dulcolax] 10 mg RECTAL DAILY PRN PRN Reason: Constipation Acetaminophen [Tylenol] 650 mg PO Q4H PRN PRN Reason: Fever And/ Or Pain Repaglinide [Prandin] 0.5 mg PO TID Folic Acid 1 mg PO DAILY@1700 Cholecalciferol [Vitamin D3] 1,000 unit PO DAILY@1700 amLODIPine [Norvasc] 10 mg PO DAILY Magnesium Hydroxide [Milk of Magnesia] 2,400 mg PO DAILY PRN PRN Reason: Constipation Menthol/Zinc Oxide [Calmoseptine Ointment] 1 applic TOPICAL TID Insulin Glargine [Lantus] 18 unit SQ HS Lisinopril [Zestril] 5 mg PO DAILY Hydrocodone/Acetaminophen [[place] 7.5-325] 1 tab PO Q6HR PRN #20 tablet PRN Reason: Pain Discontinued Warfarin [Coumadin] 5 mg PO DAILY@1700 #0 Cephalexin [Keflex] 500 mg PO Q8HR #30 cap No Action Aspirin 81 mg PO DAILY@1700 Discharge Medication List Aspirin 81 mg PO DAILY@1700 01/26/14 [History] Gabapentin [Neurontin] 300 mg PO BID 01/26/14 [History] Metoprolol Tartrate [Lopressor] 25 mg PO BID 01/26/14 [History] Primidone [Mysoline] 50 mg PO BID 01/26/14 [History] Acetaminophen [Tylenol] 650 mg PO Q4H PRN 04/21/17 [History] Bisacodyl [Dulcolax] 10 mg RECTAL DAILY PRN 04/21/17 [History] Cholecalciferol [Vitamin D3] 1,000 unit PO DAILY@1700 04/21/17 [History] Folic Acid 1 mg PO DAILY@1700 04/21/17 [History] Lidocaine 2% Gel [Xylocaine Jelly 2%] 1 applic TOPICAL DAILY PRN 04/21/17 [ History] Magnesium Hydroxide [Milk of Magnesia] 2,400 mg PO DAILY PRN 04/21/17 [History] Na Phos,M-B/Na Phos,Di-Ba [Fleet Adult] 133 ml RECTAL ONCE PRN 04/21/17 [History ] Repaglinide [Prandin] 0.5 mg PO TID 04/21/17 [History] amLODIPine [Norvasc] 10 mg PO DAILY 04/21/17 [History] Menthol/Zinc Oxide [Calmoseptine Ointment] 1 applic TOPICAL TID 04/23/17 [ History] Insulin Glargine [Lantus] 18 unit SQ HS 05/03/17 [History] Lisinopril [Zestril] 5 mg PO DAILY 05/03/17 [History] Fluconazole [Diflucan] 100 mg PO DAILY #7 tab 05/31/17 [Rx] Hydrocodone/Acetaminophen [[place] 7.5-325] 1 tab PO Q6HR PRN #20 tablet 05/31/17 [Rx] INSULIN LISPRO (HumaLOG) [humaLOG] 0 unit SQ ACHS #1 vial 05/31/17 [Rx] Oseltamivir 6Mg/ml Oral Susp [Tamiflu] 30 mg PO Q12HR #6 oral.syrg 05/31/17 [Rx] Pantoprazole [Protonix] 40 mg PO BID tablet. 05/31/17 [Rx] Follow up Appointment(s)/Referral(s): Bishnu Redding MD [STAFF PHYSICIAN] - 2 Weeks Rickie Paul MD [STAFF PHYSICIAN] - 2 Weeks Solo Ferro DO [Primary Care Provider] - 3 Days Patient Instructions/Handouts: Gastrointestinal Bleeding (ED), Type 2 Diabetes in Adults (DC) Activity/Diet/Wound Care/Special Instructions: Antibiotics as per infectious disease. Coumadin and ASA on hold, resume in 5 days as per PCP. CBC,bmp in 3 days
[2017-05-31] MEDS ORDERED: OSELTAMIVIR 60 MG/10 ML ORAL SYRINGE PO SCH ×2 (21:00)
== END 2017-05-31 18:15 | DRG 378 ==
LOC: EC 08:36 → 6ICU 08:46 → 4MS4W 05-26 18:43
PROVIDERS: ADMIT Hospitalist; ATTEND Hospitalist
PROC: 30233N1 Transfusion of Nonautologous Red Blood Cells into Peripheral Vein, Percutaneous Approach (ICD-10-PCS; principal; 2017-05-25)
PROC: 0DB78ZX Excision of Stomach, Pylorus, Via Natural or Artificial Opening Endoscopic, Diagnostic (ICD-10-PCS; 2017-05-26)
DX: K29.71 Gastritis, unspecified, with bleeding (principal); D62 Acute posthemorrhagic anemia; L89.152 Pressure ulcer of sacral region, stage 2; N17.9 Acute kidney failure, unspecified; E11.42 Type 2 diabetes mellitus with diabetic polyneuropathy; E11.51 Type 2 diabetes mellitus with diabetic peripheral angiopathy without gangrene; E11.22 Type 2 diabetes mellitus with diabetic chronic kidney disease; E87.2 Acidosis; I69.354 Hemiplegia and hemiparesis following cerebral infarction affecting left non-dominant side; B37.49 Other urogenital candidiasis; J98.11 Atelectasis; I48.0 Paroxysmal atrial fibrillation; L89.612 Pressure ulcer of right heel, stage 2; K29.81 Duodenitis with bleeding; K26.4 Chronic or unspecified duodenal ulcer with hemorrhage; N18.3 Chronic kidney disease, stage 3 (moderate); J10.1 Influenza due to other identified influenza virus with other respiratory manifestations; K44.9 Diaphragmatic hernia without obstruction or gangrene; I12.9 Hypertensive chronic kidney disease with stage 1 through stage 4 chronic kidney disease, or unspecified chronic kidney disease; K21.9 Gastro-esophageal reflux disease without esophagitis; K59.00 Constipation, unspecified; Q63.1 Lobulated, fused and horseshoe kidney; M19.91 Primary osteoarthritis, unspecified site; E27.9 Disorder of adrenal gland, unspecified; N20.0 Calculus of kidney; R33.9 Retention of urine, unspecified; Z79.82 Long term (current) use of aspirin; Z79.4 Long term (current) use of insulin; Z79.01 Long term (current) use of anticoagulants; Z79.899 Other long term (current) drug therapy; Z86.19 Personal history of other infectious and parasitic diseases; Z90.710 Acquired absence of both cervix and uterus; Z90.49 Acquired absence of other specified parts of digestive tract; Z98.42 Cataract extraction status, left eye; Z98.41 Cataract extraction status, right eye; Z88.0 Allergy status to penicillin
CPT/HCPCS: 36415; 43239; 71046; 78582; 80048; 80053; 81001; 82140; 82550; 82553; 83036; 83605; 83735; 84100; 84484; 85025; 85027; 85379; 85610; 85730; 86850; 86900; 86901; 86920; 87040; 87077; 87086; 87186; 87502; 88305; 88342; 93005; 93306; 96361; 96374; 96375; 99285

== ENCOUNTER 2017-08-17 16:18 | Inpatient (IN) | payer MEDICARE, OTHER ==
[2017-08-17] MEDS ORDERED: SODIUM CHLORIDE 0.9% 1,000 ML IV STA (16:51)
[2017-08-17] MEDS ORDERED: SODIUM CHLORIDE 0.9% 500 ML IV STA (16:51)
[2017-08-17 17:28] LABS: Basophils % (A) 0 %; Eosinophils # (A) 0.2 k/uL (0-0.7); Eosinophils % (A) 2 %; HCT 40.7 % (34.0-46.0); HGB 12.7 gm/dL (11.4-16.0); Hypochromasia Slight; Lymphocytes # (A) 1.5 k/uL (1.0-4.8); Lymphocytes % (A) 14 %; MCH 27.2 pg (25.0-35.0); MCHC 31.1 g/dL (31.0-37.0); MCV 87.5 fL (80.0-100.0); Mean Platelet Volume 7.9; Monocytes # (A) 0.4 k/uL (0-1.0); Monocytes % (A) 4 %; Neutrophils # (A) 8.7 k/uL (1.3-7.7); Neutrophils % (A) 80 %; Platelet Count 343 k/uL (150-450); RBC 4.65 m/uL (3.80-5.40); RDW 15.3 % (11.5-15.5); WBC 10.9 k/uL (3.8-10.6)
[2017-08-17 17:32] LABS: Appearance,Urine Turbid (Clear); Bacteria,Urine Many /hpf; Bilirubin,Urine Negative (Negative); Blood,Urine Moderate (Negative); Color,Urine Yellow; Glucose,Urine (UA) Negative (Negative); Granular Casts,Urine 66 /lpf (0); Ketones,Urine Negative (Negative); Leukocyte Esterase,Urine Large (Negative); Nitrite,Urine Positive (Negative); PH, Urine 5.5 (5.0-8.0); Protein,Urine 2+ (Negative); RBC,Urine 83 /hpf (0-5); Specific Gravity,Urine 1.017 (1.001-1.035); Squamous Epithelial Cell,Urine 8 /hpf (0-4); Urobilinogen,Urine <2.0 mg/dL (<2.0); WBC,Urine >182 /hpf (0-5)
[2017-08-17 17:36] LABS: Albumin 2.5 g/dL (3.5-5.0); Calcium 8.8 mg/dL (8.4-10.2); Magnesium 2.1 mg/dL (1.6-2.3); Total Bilirubin 0.4 mg/dL (0.2-1.3); Total Protein 5.6 g/dL (6.3-8.2)
[2017-08-17] MEDS ORDERED: NALOXONE 0.4 MG/ML 1 ML VIAL IV PRN (18:44)
[2017-08-17] MEDS ORDERED: ACETAMINOPHEN TAB 325 MG TAB PO PRN ×2 (18:44→18:46)
--- NOTE | 2017-08-17 18:44 | ED ---
Female Urogenital HPI - General Chief complaint: Urogenital Stated complaint: Infection, Poss UTI Time Seen by Provider: 08/17/17 16:18 Source: patient, family, EMS, RN notes reviewed, old records reviewed Mode of arrival: EMS Limitations: no limitations - History of Present Illness Initial comments: This is a 72-year-old female who presents from intermediate by ambulance with concerns for evaluation for urinary tract infection as well as decubitus ulceration. The patient was scheduled to have a PICC line placed at [facility] in 3 days. Culture results on the decubitus ulcers are pending. Patient is ALLERGIC to amoxicillin was given one shot of Rocephin at the intermediate. MD Complaint: other - Related Data Home Medications Medication Instructions Recorded Confirmed Aspirin 81 mg PO DAILY@169901/26/14 08/17/17 Gabapentin [Neurontin] 300 mg PO BID@1000,209901/26/14 08/17/17 Metoprolol Tartrate [Lopressor] 12.5 mg PO BID@1000,209901/26/14 08/17/17 Primidone [Mysoline] 50 mg PO BID@1000,209901/26/14 08/17/17 Acetaminophen [Tylenol] 650 mg PO Q4H PRN 04/21/17 08/17/17 Bisacodyl [Dulcolax] 10 mg RECTAL DAILY PRN 04/21/17 08/17/17 Cholecalciferol [Vitamin D3] 1,000 unit PO DAILY@0 04/21/17 08/17/17 Folic Acid 1 mg PO DAILY@0 04/21/17 08/17/17 Lidocaine 2% Gel [Xylocaine Jelly 1 applic TOPICAL DAILY PRN 04/21/17 08/17/17 2%] Magnesium Hydroxide [Milk of 2,400 mg PO DAILY PRN 04/21/17 08/17/17 Magnesia] Na Phos,M-B/Na Phos,Di-Ba [Fleet 133 ml RECTAL ONCE PRN 04/21/17 08/17/17 Adult] Albuterol Nebulized (Conc) 2.5 mg INHALATION RT-QID PRN 08/17/17 08/17/17 [Ventolin Nebulized (Conc)] Amino Acids/Protein Hydrolys 30 ml PO DAILY@99908/17/17 08/17/17 [Pro-Stat Supplement] Apixaban [Eliquis] 5 mg PO BID@0800,1700 08/17/17 08/17/17 Carbamide Peroxide [Debrox Otic] 4 drops BOTH EARS BID 08/17/17 08/17/17 Lisinopril [Prinivil] 5 mg PO DAILY 08/17/17 08/17/17 Mirtazapine [Remeron ODT] 15 mg PO HS@2100 08/17/17 08/17/17 Ondansetron [Zofran] 4 mg PO Q12HR PRN 08/17/17 08/17/17 Pantoprazole [Protonix] 40 mg PO BID@0600,1600 08/17/17 08/17/17 Promethazine [Phenergan] 25 mg PO Q6HR PRN 08/17/17 08/17/17 cefTRIAXone [Rocephin] 1,000 mg IM ONCE 08/17/17 08/17/17 fentaNYL 12MCG/HR PATCH [Duragesic 12 mcg TRANSDERM Q72H 08/17/17 08/17/17 12MCG/HR] fentaNYL 25MCG/HR PATCH [Duragesic 25 mcg TRANSDERM Q72H 08/17/17 08/17/17 25MCG/HR] Previous Rx's Medication Instructions Recorded Hydrocodone/Acetaminophen [[place] 1 tab PO Q6HR PRN #20 tablet 05/31/17 7.5-325] Allergies Allergy/AdvReac Type Severity Reaction Status Date / Time amoxicillin [Amoxicillin] Allergy Swelling Verified 08/17/17 17:44 Review of Systems ROS Statement: Those systems with pertinent positive or pertinent negative responses have been documented in the HPI. ROS Other: All systems not noted in ROS Statement are negative. Past Medical History Past Medical History: Atrial Fibrillation, CVA/TIA, Diabetes Mellitus, GERD/ Reflux, Hypertension, Osteoarthritis (OA), Renal Disease Additional Past Medical History / Comment(s): CHRONIC UTI OVER THE PAST YEARS. PRIOR URINARY CALCULI. LEFT SIDED WEAKNESS.neuropathy, past uterine fibroids, pvd, paroxysmal afib, pressure sores rt heel/buttocks, difficulty swallowing pills. PICC LINE DISCONTINUED History of Any Multi-Drug Resistant Organisms: MRSA Date of last positivie culture/infection: 04/23/17 MDRO Source:: urine Past Surgical History: Back Surgery, Hysterectomy Additional Past Surgical History / Comment(s): cystoscopy, ureteroscopy,OPEN KIDNEY SURGERY FOR CALCULI. LITHRTRIPSY X 2.had i ovary out when young and 2nd one out w/ hysterectomy, lumbar laminectomy,cataracts, cystoscopy with JJ stent placement r/t kidney stones 1-3-18 Past Anesthesia/Blood Transfusion Reactions: No Reported Reaction Past Psychological History: No Psychological Hx Reported Smoking Status: Never smoker Past Alcohol Use History: None Reported Past Drug Use History: None Reported - Past Family History Mother Family Medical History: Coronary Artery Disease (CAD) Father Family Medical History: Coronary Artery Disease (CAD), Renal Disease Additional Family Medical History / Comment(s): DIALYSIS. General Exam - General Exam Comments Initial Comments: This a well-developed well-nourished awake alert oriented 3 female who is somewhat lethargic Limitations: no limitations General appearance: alert, in no apparent distress, lethargic Head exam: Present: atraumatic, normocephalic, normal inspection Eye exam: Present: normal appearance, PERRL, EOMI. Absent: scleral icterus, conjunctival injection, periorbital swelling ENT exam: Present: mucous membranes dry Neck exam: Present: normal inspection. Absent: tenderness, meningismus, lymphadenopathy Respiratory exam: Present: normal lung sounds bilaterally. Absent: respiratory distress, wheezes, rales, rhonchi, stridor Cardiovascular Exam: Present: regular rate, normal rhythm, normal heart sounds. Absent: systolic murmur, diastolic murmur, rubs, gallop, clicks GI/Abdominal exam: Present: soft, normal bowel sounds. Absent: distended, tenderness, guarding, rebound, rigid Rectal exam: Present: normal inspection, other (Decubitus ulceration is noted more so on the left buttock than the right there is clean dressing with no localized lymphangitis noted.) Extremities exam: Present: normal inspection, full ROM, normal capillary refill. Absent: tenderness, pedal edema, joint swelling, calf tenderness Back exam: Present: normal inspection Neurological exam: Present: alert, oriented X3, CN II-XII intact Psychiatric exam: Present: normal affect, normal mood Skin exam: Present: warm, dry, intact, normal color. Absent: rash Course Vital Signs 08/17/17 08/17/17 16:27 18:18 Temperature 97.1 F L Pulse Rate 74 65 Respiratory 18 18 Rate Blood Pressure 133/71 134/65 O2 Sat by Pulse 96 99 Oximetry Medical Decision Making - Medical Decision Making I did discuss the findings with the patient and the patient's she'll be admitted place an IV Rocephin IV oral fluids consultation by infectious disease. - Lab Data Result diagrams: 08/17/17 17:10 08/17/17 17:10 Lab Results 08/17/17 08/17/17 08/17/17 Range/Units 17:10 17:10 17:10 WBC 10.9 H (3.8-10.6) k/uL RBC 4.65 (3.80-5.40) m/uL Hgb 12.7 (11.4-16.0) gm/dL Hct 40.7 (34.0-46.0) % MCV 87.5 (80.0-100.0) fL MCH 27.2 (25.0-35.0) pg MCHC 31.1 (31.0-37.0) g/dL RDW 15.3 (11.5-15.5) % Plt Count 343 (150-450) k/uL Neutrophils % 80 % Lymphocytes % 14 % Monocytes % 4 % Eosinophils % 2 % Basophils % 0 % Neutrophils # 8.7 H (1.3-7.7) k/uL Lymphocytes # 1.5 (1.0-4.8) k/uL Monocytes # 0.4 (0-1.0) k/uL Eosinophils # 0.2 (0-0.7) k/uL Basophils # 0.0 (0-0.2) k/uL Hypochromasia Slight Sodium 140 (137-145) mmol/L Potassium 4.0 (3.5-5.1) mmol/L Chloride 105 (98-107) mmol/L Carbon Dioxide 24 (22-30) mmol/L Anion Gap 11 mmol/L BUN 25 H (7-17) mg/dL Creatinine 1.50 H (0.52-1.04) mg/dL Est GFR (CKD-EPI)AfAm 39 (>60 ml/min/1.73 sqM) Est GFR (CKD-EPI)NonAf 34 (>60 ml/min/1.73 sqM) Glucose 123 H (74-99) mg/dL Plasma Lactic Acid Sahil 1.2 (0.7-2.0) mmol/L Calcium 8.8 (8.4-10.2) mg/dL Magnesium 2.1 (1.6-2.3) mg/dL Total Bilirubin 0.4 (0.2-1.3) mg/dL AST 18 (14-36) U/L ALT 22 (9-52) U/L Alkaline Phosphatase 182 H (38-126) U/L Total Protein 5.6 L (6.3-8.2) g/dL Albumin 2.5 L (3.5-5.0) g/dL Urine Color Urine Appearance (Clear) Urine pH (5.0-8.0) Ur Specific [place] (1.001-1.035) Urine Protein (Negative) Urine Glucose (UA) (Negative) Urine Ketones (Negative) Urine Blood (Negative) Urine Nitrite (Negative) Urine Bilirubin (Negative) Urine Urobilinogen (<2.0) mg/dL Ur Leukocyte Esterase (Negative) Urine RBC (0-5) /hpf Urine WBC (0-5) /hpf Urine WBC Clumps (None) /hpf Ur Squamous Epith Cells (0-4) /hpf Urine Bacteria (None) /hpf Granular Casts (0) /lpf 08/17/17 Range/Units 17:10 WBC (3.8-10.6) k/uL RBC (3.80-5.40) m/uL Hgb (11.4-16.0) gm/dL Hct (34.0-46.0) % MCV (80.0-100.0) fL MCH (25.0-35.0) pg MCHC (31.0-37.0) g/dL RDW (11.5-15.5) % Plt Count (150-450) k/uL Neutrophils % % Lymphocytes % % Monocytes % % Eosinophils % % Basophils % % Neutrophils # (1.3-7.7) k/uL Lymphocytes # (1.0-4.8) k/uL Monocytes # (0-1.0) k/uL Eosinophils # (0-0.7) k/uL Basophils # (0-0.2) k/uL Hypochromasia Sodium (137-145) mmol/L Potassium (3.5-5.1) mmol/L Chloride (98-107) mmol/L Carbon Dioxide (22-30) mmol/L Anion Gap mmol/L BUN (7-17) mg/dL Creatinine (0.52-1.04) mg/dL Est GFR (CKD-EPI)AfAm (>60 ml/min/1.73 sqM) Est GFR (CKD-EPI)NonAf (>60 ml/min/1.73 sqM) Glucose (74-99) mg/dL Plasma Lactic Acid [place] (0.7-2.0) mmol/L Calcium (8.4-10.2) mg/dL Magnesium (1.6-2.3) mg/dL Total Bilirubin (0.2-1.3) mg/dL AST (14-36) U/L ALT (9-52) U/L Alkaline Phosphatase (38-126) U/L Total Protein (6.3-8.2) g/dL Albumin (3.5-5.0) g/dL Urine Color Yellow Urine Appearance Turbid H (Clear) Urine pH 5.5 (5.0-8.0) Ur Specific [place] 1.017 (1.001-1.035) Urine Protein 2+ H (Negative) Urine Glucose (UA) Negative (Negative) Urine Ketones Negative (Negative) Urine Blood Moderate H (Negative) Urine Nitrite Positive H (Negative) Urine Bilirubin Negative (Negative) Urine Urobilinogen <2.0 (<2.0) mg/dL Ur Leukocyte Esterase Large H (Negative) Urine RBC 83 H (0-5) /hpf Urine WBC >182 H (0-5) /hpf Urine WBC Clumps Many H (None) /hpf Ur Squamous Epith Cells 8 H (0-4) /hpf Urine Bacteria Many H (None) /hpf Granular Casts 66 (0) /lpf - Radiology Data Radiology results: image reviewed (I did review the imaging no definite evidence of infiltrate.) Disposition Clinical Impression: Urinary tract infection, Dehydration, Renal insufficiency Disposition: ADMITTED IP TO THIS [facility] Condition: Stable Referrals: Solo Ferro DO [Primary Care Provider] - 1-2 days
[2017-08-17] MEDS ORDERED: ALBUTEROL NEBULIZED 2.5 MG/3 ML INHALATION PRN (18:46)
[2017-08-17] MEDS ORDERED: ONDANSETRON 4 MG TAB PO PRN (18:46)
[2017-08-17] MEDS ORDERED: MAGNESIUM HYDROXIDE 2,400 MG/10 ML CUP PO PRN (18:46)
[2017-08-17] MEDS ORDERED: BISACODYL 10 MG SUPP RECTAL PRN (18:46)
[2017-08-17] MEDS ORDERED: PROMETHAZINE 25 MG TAB PO PRN (18:46)
[2017-08-17] MEDS ORDERED: LIDOCAINE 2% GEL 5 ML TUBE TOPICAL PRN (18:46)
--- NOTE | 2017-08-17 18:50 | XR ---
EXAMINATION TYPE: XR chest 2V DATE OF EXAM: 08/17/2017 COMPARISON: 05/29/2017 HISTORY: Cough TECHNIQUE: Frontal and lateral views of the chest are obtained. FINDINGS: There is no heart failure nor confluent pneumonic infiltrate. Heart size is normal. Thorac ic aorta is atheromatous. The bony thorax appears intact. IMPRESSION: No active cardiopulmonary disease. Atheromatous aorta. There is clearing of the pulmonar y congestion compared to old exam.
[2017-08-17] MEDS ORDERED: cefTRIAXone IN SWFI 1,000 MG/10 ML SYRINGE IVP STA (18:51)
[2017-08-17] MEDS ORDERED: CARBAMIDE PEROXIDE 6.5% DROPS 15 ML BTL BOTH EARS PRN (21:00)
[2017-08-17 21:11] VITALS: BMI 21.2
[2017-08-17] MEDS: METOPROLOL TARTRATE 12.5 MG TAB PO SCH (22:07)
[2017-08-17] MEDS: SODIUM CHLORIDE 0.9% 1,000 ML IV SCH (22:08)
[2017-08-17] MEDS: MIRTAZAPINE 15 MG TAB PO SCH (22:22)
[2017-08-17] MEDS: PRIMIDONE 50 MG TAB PO SCH (22:22)
[2017-08-17] MEDS: GABAPENTIN 300 MG CAP PO SCH (22:22)
[2017-08-17 23:19] LABS: Glucose,Whole Blood 90 mg/dL (75-99)
[2017-08-18] MEDS: PANTOPRAZOLE 40 MG TABLET PO SCH ×2 (06:09→17:11)
[2017-08-18] MEDS: METOPROLOL TARTRATE 12.5 MG TAB PO SCH ×2 (08:25→20:44)
[2017-08-18] MEDS: GABAPENTIN 300 MG CAP PO SCH ×2 (08:25→20:43)
[2017-08-18] MEDS: PRIMIDONE 50 MG TAB PO SCH ×2 (08:25→20:43)
[2017-08-18] MEDS: APIXABAN 5 MG TAB PO SCH ×2 (08:25→17:11)
[2017-08-18] MEDS: SODIUM CHLORIDE 0.9% 1,000 ML IV SCH ×2 (08:26→20:43)
[2017-08-18] MEDS ORDERED: LISINOPRIL 5 MG TAB PO SCH (09:00)
[2017-08-18] MEDS ORDERED: cefTRIAXone IN SWFI 1,000 MG/10 ML SYRINGE IVP SCH (09:00)
[2017-08-18] MEDS ORDERED: NON-FORMULARY DRUG (Amino Acids/Protein Hydrolys [Pro-Stat Supplement] 30 ML) PO SCH (10:00)
--- NOTE | 2017-08-18 15:20 | P.HPIM ---
History of Present Illness 72-year-old female with a chronic debility and significant deconditioning since her prolonged hospitalization last December for urinary tract infection and sepsis , patient does have history of previous stroke with significant weakness on the right leg some weakness in the left leg was sent in here because of the concerns of urinary tract infection patient has a chronic Melendez catheter in place. Patient's Melendez cath was replaced yesterday patient does have any crepitus ulcer stage III was doesn't appear to be infected patient has multiple UTIs in the past and the patient is supposed to get a PICC line at [facility] for IV antibiotics because of the concerns of the worsening urinary tract infection patient was sent in here urine looks cloudy patient doesn't have any symptoms of some suprapubic pain doesn't have any fevers some does have some leukocytosis. Chest x-ray did not show any significant abnormality. Review of Systems REVIEW OF SYSTEMS: CONSTITUTIONAL: No fever, no malaise, no fatigue. HEENT: No recent visual problems or hearing problems. Denied any sore throat. CARDIOVASCULAR: No chest pain, orthopnea, PND, no palpitations, no syncope. PULMONARY: No shortness of breath, no cough, no hemoptysis. GASTROINTESTINAL: No diarrhea, no nausea, no vomiting, no abdominal pain. Normoactive bowel sounds. NEUROLOGICAL: No headaches, no weakness, no numbness. HEMATOLOGICAL: Denies any bleeding or petechiae. GENITOURINARY: Denies any burning micturition, frequency, or urgency. MUSCULOSKELETAL/RHEUMATOLOGICAL: Denies any joint pain, swelling, or any muscle pain. ENDOCRINE: Denies any polyuria or polydipsia. The rest of the 14-point review of systems is negative. Past Medical History Past Medical History: Atrial Fibrillation, CVA/TIA, Diabetes Mellitus, GERD/ Reflux, Hypertension, Osteoarthritis (OA), Renal Disease Additional Past Medical History / Comment(s): CHRONIC UTI OVER THE PAST YEARS. PRIOR URINARY CALCULI. LEFT SIDED WEAKNESS.neuropathy, past uterine fibroids, pvd, paroxysmal afib, pressure sores rt heel/buttocks, difficulty swallowing pills. PICC LINE DISCONTINUED History of Any Multi-Drug Resistant Organisms: MRSA Date of last positivie culture/infection: 04/23/17 MDRO Source:: urine Past Surgical History: Back Surgery, Hysterectomy Additional Past Surgical History / Comment(s): cystoscopy, ureteroscopy,OPEN KIDNEY SURGERY FOR CALCULI. LITHRTRIPSY X 2.had i ovary out when young and 2nd one out w/ hysterectomy, lumbar laminectomy,cataracts, cystoscopy with JJ stent placement r/t kidney stones 1-07-22 Past Anesthesia/Blood Transfusion Reactions: No Reported Reaction Past Psychological History: No Psychological Hx Reported Additional Psychological History / Comment(s): Resident of [facility] no animal exposures Smoking Status: Never smoker Past Alcohol Use History: None Reported Past Drug Use History: None Reported - Past Family History Mother Family Medical History: Coronary Artery Disease (CAD) Father Family Medical History: Coronary Artery Disease (CAD), Renal Disease Additional Family Medical History / Comment(s): DIALYSIS. Medications and Allergies Home Medications Medication Instructions Recorded Confirmed Type Aspirin 81 mg PO DAILY@169901/26/14 08/17/17 History Gabapentin [Neurontin] 300 mg PO BID@1000,209901/26/14 08/17/17 History Metoprolol Tartrate [Lopressor] 12.5 mg PO BID@1000,209901/26/14 08/17/17 History Primidone [Mysoline] 50 mg PO BID@1000,209901/26/14 08/17/17 History Acetaminophen [Tylenol] 650 mg PO Q4H PRN 04/21/17 08/17/17 History Bisacodyl [Dulcolax] 10 mg RECTAL DAILY PRN 04/21/17 08/17/17 History Cholecalciferol [Vitamin D3] 1,000 unit PO DAILY@169904/21/17 08/17/17 History Folic Acid 1 mg PO DAILY@169904/21/17 08/17/17 History Lidocaine 2% Gel [Xylocaine Jelly 1 applic TOPICAL DAILY PRN 04/21/17 08/17/17 History 2%] Magnesium Hydroxide [Milk of 2,400 mg PO DAILY PRN 04/21/17 08/17/17 History Magnesia] Na Phos,M-B/Na Phos,Di-Ba [Fleet 133 ml RECTAL ONCE PRN 04/21/17 08/17/17 History Adult] Hydrocodone/Acetaminophen [[place] 1 tab PO Q6HR PRN #20 tablet 05/31/17 08/17/17 Rx 7.5-325] Albuterol Nebulized (Conc) 2.5 mg INHALATION RT-QID PRN 08/17/17 08/17/17 History [Ventolin Nebulized (Conc)] Amino Acids/Protein Hydrolys 30 ml PO DAILY@1000 08/17/17 08/17/17 History [Pro-Stat Supplement] Apixaban [Eliquis] 5 mg PO BID@0800,1700 08/17/17 08/17/17 History Carbamide Peroxide [Debrox Otic] 4 drops BOTH EARS BID 08/17/17 08/17/17 History Ferrous Sulfate [Feosol] 325 mg PO DAILY 08/17/17 08/17/17 History Lisinopril [Prinivil] 5 mg PO DAILY 08/17/17 08/17/17 History Mirtazapine [Remeron ODT] 15 mg PO HS@2100 08/17/17 08/17/17 History Ondansetron [Zofran] 4 mg PO Q12HR PRN 08/17/17 08/17/17 History Pantoprazole [Protonix] 40 mg PO BID@0600,1600 08/17/17 08/17/17 History Promethazine [Phenergan] 25 mg PO Q6HR PRN 08/17/17 08/17/17 History cefTRIAXone [Rocephin] 1,000 mg IM ONCE 08/17/17 08/17/17 History fentaNYL 12MCG/HR PATCH [Duragesic 12 mcg TRANSDERM Q72H 08/17/17 08/17/17 History 12MCG/HR] fentaNYL 25MCG/HR PATCH [Durages[place] 25 mcg TRANSDERM Q72H 08/17/17 08/17/17 History 25MCG/HR] Allergies Allergy/AdvReac Type Severity Reaction Status Date / Time amoxicillin [Amoxicillin] Allergy Swelling Verified 08/17/17 17:44 Physical Exam Vitals: Vital Signs Temp Pulse Pulse Resp BP BP Pulse Ox 08/18/17 09:00 16 08/18/17 07:00 97.7 F 61 16 123/70 98 08/18/17 00:00 14 08/17/17 23:00 98.1 F 60 14 123/50 98 08/17/17 20:29 97.7 F 64 16 125/66 98 08/17/17 20:19 97.5 F L 64 16 114/69 98 08/17/17 19:39 73 18 134/74 99 08/17/17 18:18 65 18 134/65 99 08/17/17 16:27 97.1 F L 74 18 133/71 96 Intake and Output 08/18/17 08/18/17 08/18/17 06:59 14:59 22:59 Intake Total 200 Balance 200 Intake: Oral 200 Other: Voiding Method Indwelling Catheter Indwelling Catheter Weight 61.5 kg PHYSICAL EXAMINATION: GENERAL: The patient is alert and oriented x3, not in any acute distress. Well developed, well nourished. HEENT: Pupils are round and equally reacting to light. EOMI. No scleral icterus. No conjunctival pallor. Normocephalic, atraumatic. No pharyngeal erythema. No thyromegaly. CARDIOVASCULAR: S1 and S2 present. No murmurs, rubs, or gallops. PULMONARY: Chest is clear to auscultation, no wheezing or crackles. ABDOMEN: Soft, nontender, nondistended, normoactive bowel sounds. No palpable organomegaly. MUSCULOSKELETAL: No joint swelling or deformity. EXTREMITIES: No cyanosis, clubbing, or pedal edema. NEUROLOGICAL: Gross neurological examination did not reveal any new focal deficits. Other chronic deficits as explained above in HPI SKIN: Is have a stage III decub this ulcer Results CBC & Chem 7: 08/17/17 17:10 08/17/17 17:10 Labs: Abnormal Lab Results - Last 24 Hours (Table) 08/17/17 08/17/17 08/17/17 Range/Units 17:10 17:10 17:10 WBC 10.9 H (3.8-10.6) k/uL Neutrophils # 8.7 H (1.3-7.7) k/uL BUN 25 H (7-17) mg/dL Creatinine 1.50 H (0.52-1.04) mg/dL Glucose 123 H (74-99) mg/dL Alkaline Phosphatase 182 H (38-126) U/L Total Protein 5.6 L (6.3-8.2) g/dL Albumin 2.5 L (3.5-5.0) g/dL Urine Appearance Turbid H (Clear) Urine Protein 2+ H (Negative) Urine Blood Moderate H (Negative) Urine Nitrite Positive H (Negative) Ur Leukocyte Esterase Large H (Negative) Urine RBC 83 H (0-5) /hpf Urine WBC >182 H (0-5) /hpf Urine WBC Clumps Many H (None) /hpf Ur Squamous Epith Cells 8 H (0-4) /hpf Urine Bacteria Many H (None) /hpf Microbiology - Last 24 Hours (Table) 08/17/17 17:10 Urine Culture - Preliminary Urine,Catheterized Thrombosis Risk Factor Assmnt - Choose All That Apply Any of the Below Risk Factors Present?: No Other Risk Factors: Yes Each Risk Factor Represents 2 Points: Age 61-74 years, Patient confined to bed Other congenital or acquired thrombophilia - If yes, enter type in comment: No Thrombosis Risk Factor Assessment Total Risk Factor Score: 4 Thrombosis Risk Factor Assessment Level: Moderate Risk Assessment and Plan Plan: -Urinary tract infection possibly secondary to chronic full catheter patient is on Rocephin now infectious disease evaluated the patient is awaiting urine cultures and studies. -Previous history of strokes with chronic debility -Atrial fibrillation paroxysmal presently rate controlled on anti-coagulation which will be continued -Decubitus ulcer stage III doesn't appear to be infected. Please refer to the nursing documentation for size. -Chronic kidney disease stage III there may be a competent of acute renal failure because of which I'll hold lisinopril and watch her on IV fluids repeat basic metabolic profile tomorrow -Hypertension -Type 2 diabetes mellitus with diabetic nephropathy, neuropathy.
[2017-08-18] MEDS: CHOLECALCIFEROL 1,000 UNIT TAB PO SCH (17:11)
[2017-08-18] MEDS: FOLIC ACID 1 MG TAB PO SCH (17:11)
[2017-08-18] MEDS: ASPIRIN 81 MG PO SCH (17:12)
[2017-08-18] MEDS: COLLAGENASE 250 UNIT/GM OINTMENT 30 GM TUBE TOPICAL SCH (17:12)
[2017-08-18 17:40] LABS: Appearance,Urine Turbid (Clear); Bacteria,Urine Few /hpf; Bilirubin,Urine Negative (Negative); Blood,Urine Small (Negative); Color,Urine Yellow; Glucose,Urine (UA) Trace (Negative); Ketones,Urine Trace (Negative); Leukocyte Esterase,Urine Large (Negative); Mucus,Urine Rare /hpf; Nitrite,Urine Positive (Negative); PH, Urine 5.5 (5.0-8.0); Protein,Urine 1+ (Negative); RBC,Urine 11 /hpf (0-5); Specific Gravity,Urine 1.014 (1.001-1.035); Urobilinogen,Urine <2.0 mg/dL (<2.0); WBC,Urine >182 /hpf (0-5)
[2017-08-18] MEDS: MIRTAZAPINE 15 MG TAB PO SCH (20:43)
[2017-08-19] MEDS: PANTOPRAZOLE 40 MG TABLET PO SCH ×2 (05:44→17:53)
--- NOTE | 2017-08-19 06:09 | CONS ---
CONSULTATION DATE OF SERVICE: 08/18/2017. REASON FOR CONSULTATION: 1. Catheter associated urinary tract infection. 2. Left wound. HISTORY OF PRESENT ILLNESS: The patient is a 72-year-old female who was sent to the [facility] ER yesterday evening with concern for a urinary tract infection and evaluation of a left gluteal pressure ulcer. The patient noticed to have a significantly cloudy urine in her Melendez catheter with the patient has for urinary retention. It is not very clear when the last time this Melendez catheter has been changed. The patient denies any high- grade fever, rigors or chills. The patient denies having any chest pain, shortness of breath or cough. The patient also has a pressure ulcer on her left gluteal area [facility] The patient was advised to follow up with us in the wound care center on her last visit which the patient did not keep. The patient has been started on Rocephin in the hospital. Infectious Disease was consulted for further recommendation regarding local wound care with antibiotic therapy. REVIEW OF SYSTEMS: Constitutional: Positive for weakness. Denies any high-grade fever. Eyes: No complaint. ENT no complaint. Respiratory no complaint. Cardiovascular no complaint. Genitourinary as per HPI. GASTROINTESTINAL SYSTEM: No complaint. Musculoskeletal no complaint. INTEGUMENTARY: As per HPI. Psychological: No complaint. Endocrine: No complaint. Neurological no complaint. PAST MEDICAL HISTORY: Atrial fibrillation, CVA, TIA, diabetes mellitus, gastroesophageal reflux disease, hypertension, history of horseshoe kidneys, hydronephrosis, left adrenal mass, recurrent UTIs, urinary retention requiring chronic indwelling Melendez catheter. PAST SURGICAL HISTORY: Appendectomy, hysterectomy, cystoscopy with double-J catheter placement. SOCIAL HISTORY: Denies smoking, drinking, or drug use. Currently at [facility]. FAMILY HISTORY: Mother with history of coronary disease. Father history of renal disease and colon disease. ALLERGIES: TO AMOXICILLIN WITH A RASH however has tolerated Rocephin without any problem. MEDICATION: Medications include the patient is currently on [place], Ventolin, Eliquis, aspirin, Dulcolax, Rocephin 1 g daily, vitamin D3, Duragesic patch, Neurontin, Lopressor. Remeron, Narcan Zofran, Protonix, Mysoline, Phenergan. EXAMINATION: Blood pressure is 100/58 with a pulse of 71, temperature of 98.4. She is 95% on room air. General description is an elderly female lying in bed in no distress. No tachypnea or accessory muscle of respiration use. HEENT: Shows no pallor or scleral icterus. Oral mucous membranes dry. No pharyngeal erythema or thrush. Neck: Trachea central. No thyromegaly. Lungs unlabored breathing. Clear to auscultation anteriorly. Heart S1, S2. Regular rate and rhythm. ABDOMEN: Soft. No tenderness. No guarding. No rigidity. Extremities: No edema of the feet. Examination of genitourinary: The patient did have a used Melendez catheter draining significantly cloudy urine. Examination of musculoskeletal the patient did have a stage III sacral wound to the left gluteal wound. Some soft tissue. No surrounding erythema. No foul smelling drainage. Neurological: Patient is awake, alert, oriented x3. Mood and affect normal. LABS: Hemoglobin is 12.7, white count of 10.9, BUN of 25, creatinine is 1.50. Electrolytes have been normal. Liver enzymes are normal. UA has been positive with large leukocyte esterase with more than 1-2 WBC. Culture showing gram-negative bacilli. Last culture back on 08/16 did show an ESBL pathogen. DIAGNOSTIC IMPRESSION AND PLAN: 1. The patient with admission to hospital with a catheter associated urinary tract infection failing outpatient antibiotic therapy with a culture done on August 16 showing an ESBL pathogen could have been the same organism. 2. Patient who do have stage III left gluteal pressure ulcer without evidence of any cellulitis. Recommend wound care. PLAN: 1. Change Melendez catheter. Obtain urine culture from new Melendez. 2. We will discontinue the Rocephin and start the patient on Invanz 1 g daily while waiting for the repeat culture to finalize. 3. Local wound care to the left gluteal wound with Santyl followed by moist dressing. 4. We will follow up on clinical condition and culture to further adjust medication if needed. Thank you for this consultation. Will follow this patient along with you. MMODL / IJN: [id number] /
[2017-08-19] MEDS: APIXABAN 5 MG TAB PO SCH ×2 (09:14→17:53)
[2017-08-19] MEDS: GABAPENTIN 300 MG CAP PO SCH ×2 (09:14→21:47)
[2017-08-19] MEDS: PRIMIDONE 50 MG TAB PO SCH ×2 (09:14→21:47)
[2017-08-19] MEDS: METOPROLOL TARTRATE 12.5 MG TAB PO SCH (09:14)
[2017-08-19] MEDS: ERTAPENEM 1 GM in SODIUM CHLORIDE 0.9% 50 ML IVPB SCH (09:15)
[2017-08-19] MEDS: SODIUM CHLORIDE 0.9% 1,000 ML IV SCH ×2 (09:17→22:06)
[2017-08-19 10:27] LABS: HCT 37.6 % (34.0-46.0); HGB 11.5 gm/dL (11.4-16.0); Hypochromasia Marked; MCH 27.7 pg (25.0-35.0); MCHC 30.7 g/dL (31.0-37.0); MCV 90.3 fL (80.0-100.0); Platelet Count 264 k/uL (150-450); RBC 4.17 m/uL (3.80-5.40); RDW 15.3 % (11.5-15.5); WBC 7.9 k/uL (3.8-10.6)
[2017-08-19 10:31] LABS: Calcium 7.7 mg/dL (8.4-10.2); Potassium 3.9 mmol/L (3.5-5.1)
--- NOTE | 2017-08-19 14:50 | P.PN ---
Subjective 72-year-old female came in for urinary tract infection related to Melendez catheter which was replaced a couple days ago patient had history of ESBL in the past urine cultures is showing couple gram-negative bacilli patient is presently on ertapenem. Constitutional: Denied any fatigue denied any fever. Cardio vascular: denied any chest pain, palpitations Gastrointestinal denied any nausea vomiting Pulmonary: Denied any shortness of breath cough Neurologic denied any new focal deficits Objective - Vital Signs Vital signs: Vital Signs Temp 98.2 F 08/19/17 06:22 Pulse 60 08/19/17 06:22 Resp 14 08/19/17 06:22 BP 100/57 08/19/17 06:22 Pulse Ox 95 08/19/17 06:22 Intake & Output 08/18/17 08/19/17 08/19/17 18:59 06:59 18:59 Intake Total 1250 530 Output Total 400 800 Balance 850 -800 530 Weight 61.5 kg Intake: Intake, IV Titration 530 Amount Ertapenem 1 gm In Sodium 50 Chloride 0.9% 50 ml @ 100 mls/hr IVPB DAILY [facility] Rx #:[id number] Sodium Chloride 0.9% 1, 480 000 ml @ 80 mls/hr IV . [id number] SHOLA Rx#:[id number] Oral 1250 Output: Urine 400 800 Other: Voiding Method Indwelling Catheter Indwelling Catheter Indwelling Catheter # Bowel Movements 1 - Exam PHYSICAL EXAMINATION: GENERAL: The patient is alert and oriented x3, not in any acute distress. Well developed, well nourished. HEENT: Pupils are round and equally reacting to light. EOMI. No scleral icterus. No conjunctival pallor. Normocephalic, atraumatic. No pharyngeal erythema. No thyromegaly. CARDIOVASCULAR: S1 and S2 present. No murmurs, rubs, or gallops. PULMONARY: Chest is clear to auscultation, no wheezing or crackles. ABDOMEN: Soft, nontender, nondistended, normoactive bowel sounds. No palpable organomegaly. MUSCULOSKELETAL: No joint swelling or deformity. EXTREMITIES: No cyanosis, clubbing, or pedal edema. NEUROLOGICAL: Gross neurological examination did not reveal any new focal deficits. Other chronic deficits as explained above in HPI SKIN: Is have a stage III decub this ulcer - Labs CBC & Chem 7: 08/19/17 10:06 08/19/17 10:06 Labs: Abnormal Lab Results - Last 24 Hours (Table) 08/18/17 08/19/17 08/19/17 Range/Units 15:46 10:06 10:06 MCHC 30.7 L (31.0-37.0) g/dL Chloride 110 H (98-107) mmol/L Carbon Dioxide 21 L (22-30) mmol/L BUN 19 H (7-17) mg/dL Creatinine 1.23 H (0.52-1.04) mg/dL Glucose 142 H (74-99) mg/dL Calcium 7.7 L (8.4-10.2) mg/dL Urine Appearance Turbid H (Clear) Urine Protein 1+ H (Negative) Urine Glucose (UA) Trace H (Negative) Urine Ketones Trace H (Negative) Urine Blood Small H (Negative) Urine Nitrite Positive H (Negative) Ur Leukocyte Esterase Large H (Negative) Urine RBC 11 H (0-5) /hpf Urine WBC >182 H (0-5) /hpf Urine WBC Clumps Many H (None) /hpf Urine Bacteria Few H (None) /hpf Urine Mucus Rare H (None) /hpf Microbiology - Last 24 Hours (Table) 08/18/17 15:46 Urine Culture - Preliminary Urine,Catheterized 08/17/17 17:10 Urine Culture - Preliminary Urine,Catheterized Gram Neg Bacilli Gram Neg Bacilli#2 08/17/17 17:10 Blood Culture - Preliminary Blood No Growth after 24 hours Assessment and Plan Plan: -Urinary tract infection possibly secondary to chronic full catheter patient is on ertapenem now infectious disease evaluated the patient is awaiting urine cultures and studies. Urine culture showing 2 different gram-negative bacilli -Previous history of strokes with chronic debility -Atrial fibrillation paroxysmal presently rate controlled on anti-coagulation which will be continued -Decubitus ulcer stage III doesn't appear to be infected. Please refer to the nursing documentation for size. -Chronic kidney disease stage III there may be a competent of acute renal failure because of which I'll hold lisinopril and watch her on IV fluids repeat basic metabolic profile tomorrow -Hypertension -Type 2 diabetes mellitus with diabetic nephropathy, neuropathy.
[2017-08-19] MEDS: FOLIC ACID 1 MG TAB PO SCH (17:53)
[2017-08-19] MEDS: ASPIRIN 81 MG PO SCH (17:53)
[2017-08-19] MEDS: CHOLECALCIFEROL 1,000 UNIT TAB PO SCH (17:53)
[2017-08-19] MEDS: COLLAGENASE 250 UNIT/GM OINTMENT 30 GM TUBE TOPICAL SCH ×2 (17:57→21:47)
--- NOTE | 2017-08-19 20:39 | PN ---
PROGRESS NOTE DATE OF SERVICE: 08/19/2017. REASON FOR FOLLOW UP: 1. Catheter associated urinary tract infection. 2. Left gluteal stage III pressure ulcer. INTERVAL HISTORY: The patient is afebrile. She is breathing comfortably. Denies having any chest pain, shortness of breath. No cough. No abdominal pain. Her Melendez catheter has been changed yesterday and no pain related to her left gluteal area. EXAMINATION: Blood pressure 115/55, pulse of 58, temperature 98.8, she is 98% on room air. General description is an elderly female, lying in bed in no distress. Respiratory system unlabored breathing, clear to auscultation anteriorly. Heart S1, S2 regular rate and rhythm. Abdomen soft, no tenderness. Extremities: No edema of the feet. LABS: Hemoglobin 11.5, white count 7.9, BUN of 19, creatinine 1.23. Urine cultures currently pending. DIAGNOSTIC IMPRESSION AND PLAN: 1. Patient admitted to the hospital with catheter associated urinary tract infection with a culture done in outpatient setting did show an ESBL E coli pathogen, questionably same pathogen. The Melendez has been changed. Will wait for the repeat culture to finalize to determine discharge antibiotics. Currently on Invanz. 2. Patient with left gluteal stage III pressure ulcer. No cellulitis. Local wound care with Santyl and keep the area off the pressure. MMODL / IJN: [id number] /
[2017-08-19] MEDS ORDERED: FUROSEMIDE 10 MG/ML 4 ML VIAL IV STA (20:50)
[2017-08-19] MEDS: MIRTAZAPINE 15 MG TAB PO SCH (21:47)
[2017-08-19] MEDS: HYDROcodone/APAP 7.5-325MG 1 EACH TAB PO PRN (21:58)
[2017-08-20] MEDS: METOPROLOL TARTRATE 12.5 MG TAB PO SCH ×3 (00:11→21:31)
[2017-08-20] MEDS: PANTOPRAZOLE 40 MG TABLET PO SCH ×3 (05:48→16:23)
[2017-08-20] MEDS: PRIMIDONE 50 MG TAB PO SCH ×2 (08:58→21:34)
[2017-08-20] MEDS: APIXABAN 5 MG TAB PO SCH ×2 (08:58→16:22)
[2017-08-20] MEDS: ERTAPENEM 1 GM in SODIUM CHLORIDE 0.9% 50 ML IVPB SCH (08:59)
[2017-08-20] MEDS: GABAPENTIN 300 MG CAP PO SCH ×2 (08:59→21:30)
[2017-08-20] MEDS: HYDROcodone/APAP 7.5-325MG 1 EACH TAB PO PRN (09:03)
--- NOTE | 2017-08-20 09:47 | XR ---
EXAMINATION TYPE: XR chest 1V portable DATE OF EXAM: 08/20/2017 COMPARISON: Prior chest x-ray 08/17/2017 HISTORY: Abnormal physical exam, basilar crackles TECHNIQUE: Single frontal view of the chest is obtained. FINDINGS: Patchy basilar density is present on the left. Patient is rotated. Cardiac mediastinal soni houette, pulmonary vascularity and addie are stable. No pneumothorax or pleural effusion. Exam is expi ratory. IMPRESSION: Findings may represent left lower lobe atelectasis versus pneumonia. Follow-up is recomm ended. Rotated exam.
[2017-08-20 09:52] LABS: Calcium 7.7 mg/dL (8.4-10.2); Potassium 3.8 mmol/L (3.5-5.1)
[2017-08-20] MEDS: MEROPENEM 1 GM in SODIUM CHLORIDE 0.9% 100 ML IVPB SCH ×2 (11:22→16:23)
[2017-08-20] MEDS: ASPIRIN 81 MG PO SCH ×2 (16:22→21:33)
[2017-08-20] MEDS: CHOLECALCIFEROL 1,000 UNIT TAB PO SCH (16:23)
[2017-08-20] MEDS: FOLIC ACID 1 MG TAB PO SCH (16:23)
--- NOTE | 2017-08-20 19:31 | PN ---
PROGRESS NOTE DATE OF SERVICE: August 20, 2017. PRESENT COMPLAINT: UTI. INTERVAL HISTORY: This is a patient admitted with a UTI. A Melendez catheter was changed. Outpatient did grow ESBL. The patient also has got a left gluteal decub ulcer. The patient has not been eating well for quite a while. Been losing quite a bit overweight. at the bedside. The patient is pretty much bed bound. He states she is eating somewhat better in the hospital. Patient does feel weak and tired, is able to communicate simply. REVIEW OF SYSTEMS: Done for constitutional, cardiovascular, GI, pulmonary, relevant findings as above. CURRENT MEDICATIONS: Reviewed include IV meropenem. PHYSICAL EXAMINATION: Temperature 98, pulse 72, respirations 16, blood pressure 112/59, pulse ox 96%. General appearance: Thin build, sitting up, tired appearing. Eyes pupils. Conjunctivae pale. HEENT: External appearance of nose and ears normal. Oral cavity normal. Neck JVD not raised. Mass not palpable. Respiratory effort normal. Lungs fair entry. Cardiovascular 1st and 2nd sounds normal. No edema. ABDOMEN: Soft, nontender. Liver and spleen not palpable. Psychiatry awake. Does answer simple questions. Dermatological: Decubital ulcer of the left gluteus. INVESTIGATIONS: White count 7.9, potassium 3.9, BUN 19, creatinine 1.23. Urine culture from August 18, 2017 did show Klebsiella pneumoniae and Pseudomonas with ESBL. ASSESSMENT: 1. ESBL with Klebsiella pneumoniae and Pseudomonas aeruginosa secondary to Melendez catheter. Repeat culture was done. Blood cultures have been negative. 2. Stage III decubitus ulcer on the left gluteus not infected present on admission. 3. Chronic medical debility. 4. Left-sided weakness from prior stroke. 5. Diabetes mellitus type 2. 6. Gastroesophageal reflux disease. 7. Essential hypertension. 8. Primary osteoarthritis multiple joints bilaterally. 9. Paroxysmal atrial fibrillation currently in sinus rhythm. 10.Peripheral neuropathy from diabetes. 11.Chronic anorexia with weight loss. 12.Chronic kidney disease stage 3 from nephrosclerosis. 13.Mild protein-calorie malnutrition with 50 pounds weight loss. Albumin down to 2.5. PLAN: The patient will remain on IV meropenem. Follow up with ID. Did speak to Umu, the nurse practitioner from the [facility] at length. She gave me an update that they had touched up to the family about possible hospice. At this point, they are reluctant and also suggested a PEG tube but patient does not want the same and give me the same. I did speak at length to the and the that is the patient. The patient does not want any PEG tube and have to respect those wishes. We will have the dietitian to see he can increase oral intake, though I doubt that with overall decline and losing weight, able to catch up. We will give add Boost as a supplementation. Wound care per ID to continue. Total time spent today was about 40 minutes with over 20-25 minutes of discussion. MMODL / IJN: [id number] /
[2017-08-20] MEDS: MIRTAZAPINE 15 MG TAB PO SCH (21:33)
[2017-08-20] MEDS: COLLAGENASE 250 UNIT/GM OINTMENT 30 GM TUBE TOPICAL SCH (21:35)
--- NOTE | 2017-08-20 22:55 | PN ---
PROGRESS NOTE DATE OF SERVICE: 08/20/2017. REASON FOR FOLLOWUP: 1. ESBL Klebsiella and Pseudomonas catheter-associated urinary tract infection. 2. Patient with left gluteal pressure ulcer stage III. INTERVAL HISTORY: The patient is afebrile. She is breathing comfortably. Denies having any chest pain, shortness of breath, cough. No abdominal pain or diarrhea. EXAMINATION: Blood pressure is 99/59, pulse of 72, temperature 98. She is 96% on room air. General description is an elderly female lying in bed in no distress. Respiratory system unlabored breathing, clear to auscultation anteriorly. Heart S1, S2. Regular rate and rhythm. Abdomen soft, no tenderness. LABS: BUN of 23, creatinine 1.32. DIAGNOSTIC IMPRESSION AND PLAN: 1. Patient with Klebsiella ESBL as well as urinary tract infection antibiotic was adjusted to meropenem 1 g q.8h to cover for the Pseudomonas which will not be covered with Invanz. She will get a PICC line tomorrow and continue on the meropenem for another 10 days to finish a course of therapy. 2. Patient with a left gluteal pressure ulcer stage III local wound care with Santyl followed by moist dressing. Keep the area off the pressure. MMODL / IJN: [id number] /
[2017-08-21] MEDS: MEROPENEM 1 GM in SODIUM CHLORIDE 0.9% 100 ML IVPB SCH ×3 (00:56→21:51)
[2017-08-21] MEDS: PANTOPRAZOLE 40 MG TABLET PO SCH ×3 (06:03→21:51)
[2017-08-21] MEDS ORDERED: LIDOCAINE 2% INJ 20 MG/ML SQ ONE (09:25)
--- NOTE | 2017-08-21 10:11 | IR ---
EXAMINATION TYPE: IR cvc insert >=5 years DATE OF EXAM: 08/21/2017 COMPARISON: NONE CLINICAL HISTORY: Urinary tract infection Needs long-term intravenous access for antibiotics. PROCEDURE: After informed consent, the skin overlying the left brachial vein was localized with ultrasound and n oted to be compressible and patent. An ultrasound image was obtained and submitted on the patient's chart. The overlying skin was prepped and draped and Lidocaine was used for local anesthesia. A ski n leah was made with a scalpel. Access was gained to the vein under ultrasound guidance with a 21 ga uge needle and a 0.018 inch wire was advanced. Access site was dilated with Peel-Away sheath and cat heter tailored to the appropriate length and advanced such that the distal tip is at the cavoatrial j unction. Spot image was obtained verifying placement. Catheter was fixed to the skin and a sterile dressing was placed following hemostasis. Catheter was aspirated and flushed with saline. Patient w as discharged in stable condition without complication. Maximal barrier technique is utilized. Ultra sound image is documented on the chart. Ultrasound used with sterile technique. Fluoro time and fluoroscopic images submitted to document procedure: 124 images, 0.7 minutes fluorosc opy time IMPRESSION: STATUS POST ULTRASOUND AND FLUOROSCOPIC GUIDED PICC LINE PLACEMENT, READY FOR USE. THIS PROCEDURE WAS PERFORMED BY THE UNDERSIGNED.
[2017-08-21] MEDS: METOPROLOL TARTRATE 12.5 MG TAB PO SCH ×2 (15:01→21:51)
[2017-08-21] MEDS: APIXABAN 5 MG TAB PO SCH ×2 (15:01→17:11)
[2017-08-21] MEDS: PRIMIDONE 50 MG TAB PO SCH ×2 (15:01→21:51)
[2017-08-21] MEDS: GABAPENTIN 300 MG CAP PO SCH ×2 (15:01→21:51)
--- NOTE | 2017-08-21 15:02 | PN ---
PROGRESS NOTE DATE OF SERVICE: 08/21/2017 REASON FOR FOLLOWUP: 1. ESBL Klebsiella and Pseudomonas aeruginosa catheter-associated urinary tract infection. 2. Left gluteal pressure ulcer. INTERVAL HISTORY: The patient is afebrile. She is being lethargic today but no other abnormality is noted by the nursing staff. No nausea, vomiting or diarrhea. She get her PICC line for outpatient IV antibiotics. PHYSICAL EXAMINATION: Blood pressure 110/53 with a pulse of 69, temperature 98.1, she is 92% on room air. General description is an elderly female, lying in bed in no distress. RESPIRATORY SYSTEM: Unlabored breathing, clear to auscultation anteriorly. HEART: S1, S2. Regular rate and rhythm. ABDOMEN: Soft, no tenderness. Left was congested. No changes per the RN. Abdominal dressing changes. LABS: BUN of 23, creatinine 1.32. DIAGNOSTIC IMPRESSION AND PLAN: 1. Patient with catheter-associated urinary tract infection with multidrug resistant pathogen including Klebsiella, ESBL along with Pseudomonas aeruginosa. Antibiotics were meropenem 1 g which she will continue for another 12 days to finish a course of therapy. The patient did already get her PICC line. 2. Patient with left gluteal pressure ulcer stage III, local wound care with Santyl followed by moist dressing. Keep the area off the pressure and follow up in the [facility] next week. MMODL / IJN: [id number] /
--- NOTE | 2017-08-21 15:23 | PN ---
PROGRESS NOTE DATE OF SERVICE: 08/21/17. PRESENT COMPLAINT: Tired. INTERVAL HISTORY: Patient admitted with UTI. Melendez catheter was changed. at the bedside. The patient has also got a left gluteal decubitus ulcer, not infected. Compared to yesterday patient's appetite again has gone down. Weak, tired. REVIEW OF SYSTEM: Could not be done as patient rather lethargic. CURRENT MEDICATIONS: Reviewed that include IV meropenem. PHYSICAL EXAMINATION: Temperature 98.1, pulse 69, respiratory 18, blood pressure 110/63, pulse ox 92% on room air. GENERAL APPEARANCE: Lying in bed, very tired-appearing. EYES: Pupil equals. Conjunctivae pale. HEENT: External nose and ears normal. Oral cavity normal. NECK: JVD unable to assess. Mass not palpable. RESPIRATORY: Effort, lungs fair entry. CARDIOVASCULAR: First and second sounds normal. No edema. ABDOMEN: Soft, nontender. Liver and spleen not palpable. PSYCHIATRY: Sleepy but arousable. DERMATOLOGICAL: Decubitus ulcer of the left gluteal area. INVESTIGATIONS: BUN 23, creatinine 1.32 as of yesterday. The patient's urine cultures growing Klebsiella pneumoniae and Pseudomonas aeruginosa. ASSESSMENT: 1. ESBL with Klebsiella pneumoniae and Pseudomonas aeruginosa urinary tract infection secondary to Melendez catheter that has been replaced. 2. Stage III decubitus ulcer on the left gluteus not infected present on admission. 3. Chronic medical debility. 4. Left-sided weakness from prior stroke. 5. Diabetes mellitus type 2. 6. Gastroesophageal reflux disease. 7. Essential hypertension. 8. Primary osteoarthritis multiple joints bilaterally. 9. Paroxysmal atrial fibrillation currently in sinus rhythm. 10.Peripheral neuropathy from diabetes. 11.Chronic anorexia with weight loss. 12.Chronic kidney disease stage III from nephrosclerosis. 13.Mild protein-calorie malnutrition with weight loss and hypoalbuminemia. PLAN: Continue with IV meropenem. Per ID patient will get a PICC line tomorrow and complete 10 days of the same. Overall prognosis not good. ADVANCED CARE PLANNING: I sat down with the at the bedside and had a lengthy discussion. He does understand the patient's overall failing health and also he said he has come to the understanding that the treatment all may be getting futile and the patient is expected to get recurrent infections. I did talk about a hospice and patient's is very strongly leaning towards that now and he thinks he will make arrangements accordingly. He will again talk to his son to who he says he has talked before and he has a good understanding of patient's overall poor prognosis knowing well that she is not going to get better including nonhealing of the decubitus ulcer with a poor oral intake and respecting the patient's wishes of not having a PEG tube. Time spent for advanced care planning in addition was about 25 minutes. ANNA / DANIEL: [id number] /
[2017-08-21] MEDS: ASPIRIN 81 MG PO SCH (17:12)
[2017-08-21] MEDS: FOLIC ACID 1 MG TAB PO SCH (17:12)
[2017-08-21] MEDS: COLLAGENASE 250 UNIT/GM OINTMENT 30 GM TUBE TOPICAL SCH (17:12)
[2017-08-21] MEDS: CHOLECALCIFEROL 1,000 UNIT TAB PO SCH (17:12)
[2017-08-21] MEDS: MIRTAZAPINE 15 MG TAB PO SCH (21:51)
[2017-08-21 22:40] VITALS: RESP 16
[2017-08-22] MEDS: MEROPENEM 1 GM in SODIUM CHLORIDE 0.9% 100 ML IVPB SCH (08:21)
[2017-08-22] MEDS: METOPROLOL TARTRATE 12.5 MG TAB PO SCH (08:21)
[2017-08-22] MEDS: PRIMIDONE 50 MG TAB PO SCH (08:21)
[2017-08-22] MEDS: APIXABAN 5 MG TAB PO SCH (08:21)
[2017-08-22] MEDS: GABAPENTIN 300 MG CAP PO SCH (08:22)
--- NOTE | 2017-08-22 11:36 | PN ---
PROGRESS NOTE DATE OF SERVICE: 08/22/2017 REASON FOR FOLLOWUP: 1. ESBL Klebsiella and Pseudomonas aeruginosa catheter-associated urinary tract infection. 2. Left gluteal pressure ulcer stage III. INTERVAL HISTORY: The patient is afebrile. He is currently breathing comfortably, feeling slightly weak and lethargic. No nausea, no vomiting. No diarrhea or any worsening pain in the gluteal wound area. PHYSICAL EXAMINATION: Blood pressure is 116/65 with a pulse of 57, temperature of 98, she is 93% on room air. General description is an elderly female, lying in bed in no distress. RESPIRATORY SYSTEM: Unlabored breathing, clear to auscultation anteriorly. HEART: S1, S2. Regular rate and rhythm. Abdomen is soft, no tenderness. Left gluteal wound is currently dressed up. No obvious drainage on the dressing. LABS: White count of 7.9, creatinine 1.32. DIAGNOSTIC IMPRESSION AND PLAN: 1. Patient with catheter-associated urinary tract infection, urine did shows ESBL Klebsiella and Pseudomonas aeruginosa. Currently on meropenem 1 g. He will continue further 12 days to finish a 2-week course of therapy. 2. Patient with left gluteal wound. Local wound care with Santyl followed by moist dressing, keep the area off the pressure. [facility]. MMODL / IJN: [id number] /
--- NOTE | 2017-08-22 14:12 | DS ---
DISCHARGE SUMMARY DATE OF ADMISSION: 08/17/2017 DATE OF DISCHARGE: 08/22/2017 FINAL DIAGNOSES: 1. Acute ESBL with Klebsiella pneumoniae and Pseudomonas aeruginosa urinary tract infection secondary to a Melendez catheter, present on admission. 2. Stage III decubitus ulcer on left gluteus, not infected, present on admission. 3. Chronic left-sided weakness from prior stroke. 4. Diabetes mellitus type 2. 5. Gastroesophageal reflux disease. 6. Essential hypertension. 7. Primary osteoarthritis multiple joints bilateral. 8. Paroxysmal atrial fibrillation, currently in sinus rhythm. 9. Peripheral neuropathy from diabetes. 10.Chronic anorexia with weight loss. 11.Chronic kidney disease stage 3 from nephrosclerosis. 12.Mild protein-calorie malnutrition with weight loss and hypoalbuminemia from decreased oral intake. CONSULTATION: Dr. Mary Sullivan from Infectious Disease. HOSPITAL COURSE: This patient is pretty much bed bound with poor oral intake, presented with decubitus ulcer on the left gluteus. The patient has not been eating for quite a while. Again, found to have a UTI as above. Antibiotics were coordinated by Dr. Sullivan. The patient has a PICC line. I did have a lengthy talk with the patient's and he leaning strongly towards hospice understanding patient's overall prognosis not good. The patient does not want a PEG tube and patient's wishes are being respected and given patient's poor oral intake, it is highly doubtful if the patient's decub ulcer is going to heal. ON EXAMINATION: Patient is sitting up, tired appearing. LUNGS: Decreased breath sounds. Able to answer simple questions. DISCHARGE MEDICATIONS: 1. Aspirin 81 mg a day. 2. Neurontin 300 mg p.o. b.i.d. 3. Lopressor 12.5 p.o. b.i.d. 4. Mysoline 50 mg p.o. b.i.d. 5. Tylenol 650 mg q.4 p.r.n. 6. Dulcolax 10 mg rectal daily p.r.n. 7. Vitamin D3, 1000 units p.o. daily at 5 p.m. 8. Folic acid 1 mg a day. 9. Xylocaine jelly 2% topical daily p.r.n. 10.Milk of magnesia 2400 mg p.o. daily p.r.n. 11.Fleet Adult 133 mL rectal p.r.n. 12.Ventolin 2.5 nebulizer q.i.d. p.r.n. 13.ProStat supplement 30 mL p.o. daily at 10 a.m. 14.Eliquis 5 mg p.o. b.i.d. 15.Debrox otic 4 drops both ears b.i.d. 16.Iron 325 p.o. daily. 17.Zofran 4 mg p.o. q.12 p.r.n. 18.Protonix 40 mg b.i.d. 19.Phenergan 25 mg q.6 p.r.n. 20.Meropenem 1 gram IV piggyback q.8, total of 40. 21.Santyl 1 application topical at bedtime. 22.Balsam 7.5 one tab q.6 p.r.n. 23.Remeron 15 mg at bedtime. 24.Fentanyl 12 mcg and 25 mcg patch every 72 hours. DISPOSITION: [facility]. Follow up with Dr. Ferro at [facility]. Follow up with Dr. Sullivan on 08/29/2017. Santyl to left gluteal wound followed by moist dressing. PICC line care. MMODL / IJN: [id number] /
[2017-08-22 14:42] VITALS: BP 118/57; PULSE 66; TEMP 97.8
== END 2017-08-22 17:54 | DRG 698 ==
LOC: EC 16:18 → 4MS4W 18:44
PROVIDERS: ADMIT Hospitalist; ATTEND Hospitalist
PROC: 02HV33Z Insertion of Infusion Device into Superior Vena Cava, Percutaneous Approach (ICD-10-PCS; principal; 2017-08-21 09:11)
DX: T83.511A Infection and inflammatory reaction due to indwelling urethral catheter, initial encounter (principal); L89.323 Pressure ulcer of left buttock, stage 3; E11.21 Type 2 diabetes mellitus with diabetic nephropathy; E11.42 Type 2 diabetes mellitus with diabetic polyneuropathy; E11.22 Type 2 diabetes mellitus with diabetic chronic kidney disease; I69.354 Hemiplegia and hemiparesis following cerebral infarction affecting left non-dominant side; E44.1 Mild protein-calorie malnutrition; N39.0 Urinary tract infection, site not specified; B96.1 Klebsiella pneumoniae [K. pneumoniae] as the cause of diseases classified elsewhere; B96.5 Pseudomonas (aeruginosa) (mallei) (pseudomallei) as the cause of diseases classified elsewhere; B96.20 Unspecified Escherichia coli [E. coli] as the cause of diseases classified elsewhere; Z16.12 Extended spectrum beta lactamase (ESBL) resistance; Z16.24 Resistance to multiple antibiotics; R40.2362 Coma scale, best motor response, obeys commands, at arrival to emergency department; R40.2142 Coma scale, eyes open, spontaneous, at arrival to emergency department; R40.2252 Coma scale, best verbal response, oriented, at arrival to emergency department; I48.0 Paroxysmal atrial fibrillation; E11.51 Type 2 diabetes mellitus with diabetic peripheral angiopathy without gangrene; N18.3 Chronic kidney disease, stage 3 (moderate); K21.9 Gastro-esophageal reflux disease without esophagitis; Q63.1 Lobulated, fused and horseshoe kidney; E27.9 Disorder of adrenal gland, unspecified; I12.9 Hypertensive chronic kidney disease with stage 1 through stage 4 chronic kidney disease, or unspecified chronic kidney disease; M19.91 Primary osteoarthritis, unspecified site; E66.3 Overweight; Z68.21 Body mass index [BMI] 21.0-21.9, adult; R33.9 Retention of urine, unspecified; Z71.3 Dietary counseling and surveillance; Z79.01 Long term (current) use of anticoagulants; Z79.82 Long term (current) use of aspirin; Z79.891 Long term (current) use of opiate analgesic; Z79.899 Other long term (current) drug therapy; Z87.440 Personal history of urinary (tract) infections; Z86.14 Personal history of Methicillin resistant Staphylococcus aureus infection; Z87.442 Personal history of urinary calculi; Z74.01 Bed confinement status; Z90.710 Acquired absence of both cervix and uterus; Z98.42 Cataract extraction status, left eye; Z98.41 Cataract extraction status, right eye; Z88.0 Allergy status to penicillin; Z82.49 Family history of ischemic heart disease and other diseases of the circulatory system; Z84.1 Family history of disorders of kidney and ureter; Y84.6 Urinary catheterization as the cause of abnormal reaction of the patient, or of later complication, without mention of misadventure at the time of the procedure; Y92.129 Unspecified place in nursing home as the place of occurrence of the external cause
CPT/HCPCS: 36415; 36569; 71045; 71046; 76937; 77001; 80048; 80053; 81001; 83605; 83735; 85025; 85027; 85652; 86140; 87040; 87070; 87077; 87086; 87186; 87205; 96361; 96374; 99285

== ENCOUNTER 2017-09-06 12:39 | Inpatient (IN) | payer MEDICARE, OTHER ==
[2017-09-06] MEDS ORDERED: SODIUM CHLORIDE 0.9% 500 ML IV STA (13:03)
[2017-09-06] MEDS ORDERED: SODIUM CHLORIDE 0.9% 1,000 ML IV STA (13:03)
[2017-09-06 13:33] LABS: Basophils # (A) 0.1 k/uL (0-0.2); Basophils % (A) 0 %; Eosinophils # (A) 1.2 k/uL (0-0.7); Eosinophils % (A) 11 %; HGB 12.4 gm/dL (11.4-16.0); Hypochromasia Slight; Lymphocytes # (A) 2.4 k/uL (1.0-4.8); Lymphocytes % (A) 21 %; MCH 27.7 pg (25.0-35.0); MCV 89.5 fL (80.0-100.0); Mean Platelet Volume 7.8; Monocytes # (A) 0.5 k/uL (0-1.0); Monocytes % (A) 4 %; Neutrophils # (A) 7.2 k/uL (1.3-7.7); Neutrophils % (A) 63 %; Platelet Count 330 k/uL (150-450); RBC 4.47 m/uL (3.80-5.40); RDW 15.6 % (11.5-15.5); WBC 11.5 k/uL (3.8-10.6)
[2017-09-06 13:39] LABS: INR 1.2 (<1.2)
[2017-09-06 13:40] LABS: Partial Thromboplastin Time 25.8 sec (22.0-30.0); Prothrombin Time 11.5 sec (9.0-12.0)
[2017-09-06 13:48] LABS: Albumin 2.1 g/dL (3.5-5.0); Potassium 4.6 mmol/L (3.5-5.1); Total Bilirubin 0.4 mg/dL (0.2-1.3); Total Protein 4.9 g/dL (6.3-8.2)
[2017-09-06 14:06] LABS: Creatine Kinase MB 0.3 ng/mL (0.0-2.4); Troponin I 0.025 ng/mL (0.000-0.034)
--- NOTE | 2017-09-06 14:36 | XR ---
EXAMINATION TYPE: XR chest 2V DATE OF EXAM: 09/06/2017 COMPARISON: Prior chest x-ray 08/20/2017 HISTORY: Weakness, abnormal chest x-ray TECHNIQUE: Frontal and lateral views of the chest are obtained. FINDINGS: Patchy basilar density again noted in the retrocardiac region. Patient is rotated. No evid ent pneumothorax. Cardiac mediastinal silhouette, pulmonary vascularity and addie are stable. IMPRESSION: Correlate for left lower lobe atelectasis versus pneumonia, difficult to exclude small e ffusion. Follow-up to resolution recommended.
--- NOTE | 2017-09-06 14:37 | CT ---
EXAMINATION TYPE: CT brain wo con DATE OF EXAM: 09/06/2017 COMPARISON: 04/21/2017 HISTORY: Weakness. CT DLP: 1097.3 mGycm Automated exposure control for dose reduction was used. FINDINGS: Moderate degenerative change. Periventricular low-attenuation suggestive of remote microvascular isch emia. Low-attenuation the right basal ganglia compatible with remote ischemia. Intracranial atheroscl erotic changes noted. Calvarium intact. Dolichoectasia of the vertebrobasilar system. IMPRESSION: DEGENERATIVE AND NONSPECIFIC WHITE MATTER CHANGES MOST TYPICAL REMOTE MICROVASCULAR ISCHEMIA. NO ACUT E HEMORRHAGE OR MASS EFFECT. IF THERE IS CONCERN FOR ACUTE ISCHEMIA CORRELATE WITH MRI CLINICALLY WARRANTED.
--- NOTE | 2017-09-06 14:58 | ED ---
General Adult HPI - General Chief complaint: Weakness Stated complaint: weakness/confusion Time Seen by Provider: 09/06/17 12:45 Source: patient, EMS Mode of arrival: EMS Limitations: no limitations - History of Present Illness Initial comments: 72 years old lady comes from mom had a noticed that increased edema in the upper and lower extremity they noticed that she was quite lethargic or nursing staff noticed that she had a quite a few fentanyl patches on she also has a history of atrial fibrillation she is on naproxen and she has a history of TIA and CVAs in the past history of renal failure and they noticed that she has been a little more sedated. Reassessed him and I asked her myself she denies any headaches no chest pain no pleuritic chest pain or abdominal pain no frequency urgency dysuria no new symptoms of TIA or CVA - Related Data Home Medications Medication Instructions Recorded Confirmed Aspirin 81 mg PO DAILY@169901/26/14 09/06/17 Gabapentin [Neurontin] 300 mg PO BID@1000,209901/26/14 09/06/17 Metoprolol Tartrate [Lopressor] 12.5 mg PO BID@1000,209901/26/14 09/06/17 Primidone [Mysoline] 50 mg PO BID@1000,209901/26/14 09/06/17 Acetaminophen [Tylenol] 650 mg PO Q4H PRN 04/21/17 09/06/17 Bisacodyl [Dulcolax] 10 mg RECTAL DAILY PRN 04/21/17 09/06/17 Cholecalciferol [Vitamin D3] 1,000 unit PO DAILY@169904/21/17 09/06/17 Folic Acid 1 mg PO DAILY@169904/21/17 09/06/17 Lidocaine 2% Gel [Xylocaine Jelly 1 applic TOPICAL DAILY PRN 04/21/17 09/06/17 2%] Magnesium Hydroxide [Milk of 2,400 mg PO DAILY PRN 04/21/17 09/06/17 Magnesia] Na Phos,M-B/Na Phos,Di-Ba [Fleet 133 ml RECTAL ONCE PRN 04/21/17 09/06/17 Adult] Albuterol Nebulized (Conc) 2.5 mg INHALATION RT-Q6H PRN 08/17/17 09/06/17 [Ventolin Nebulized (Conc)] Apixaban [Eliquis] 5 mg PO BID@0800,1700 08/17/17 09/06/17 Ferrous Sulfate [Iron (65 MG 325 mg PO DAILY@1700 08/17/17 09/06/17 Elemental)] Ondansetron [Zofran] 4 mg PO Q12HR PRN 08/17/17 09/06/17 Pantoprazole [Protonix] 40 mg PO BID@0600,1600 08/17/17 09/06/17 Promethazine [Phenergan] 25 mg PO Q6HR PRN 08/17/17 09/06/17 Previous Rx's Medication Instructions Recorded Collagenase [Santyl] 1 applic TOPICAL HS applic 08/22/17 Hydrocodone/Acetaminophen [[place] 1 tab PO Q6HR PRN #10 tablet 08/22/17 7.5-325] Mirtazapine [Remeron (Soluspan)] 15 mg PO HS@2100 #3 tab.rapdis 08/22/17 fentaNYL 12MCG/HR PATCH [Duragesic 12 mcg TRANSDERM Q72H #1 patch 08/22/17 12MCG/HR] fentaNYL 25MCG/HR PATCH [Duragesic 25 mcg TRANSDERM Q72H #1 patch 08/22/17 25MCG/HR] Allergies Allergy/AdvReac Type Severity Reaction Status Date / Time amoxicillin [Amoxicillin] Allergy Swelling Verified 09/06/17 12:55 Review of Systems ROS Statement: Those systems with pertinent positive or pertinent negative responses have been documented in the HPI. ROS Other: All systems not noted in ROS Statement are negative. Past Medical History Past Medical History: Atrial Fibrillation, CVA/TIA, Diabetes Mellitus, GERD/ Reflux, Hypertension, Osteoarthritis (OA), Renal Disease Additional Past Medical History / Comment(s): CHRONIC UTI OVER THE PAST YEARS. PRIOR URINARY CALCULI. LEFT SIDED WEAKNESS.neuropathy, past uterine fibroids, pvd, paroxysmal afib, pressure sores rt heel/buttocks, difficulty swallowing pills. PICC LINE DISCONTINUED History of Any Multi-Drug Resistant Organisms: ESBL, MRSA Date of last positivie culture/infection: 08/17/17 ESBL, 04/23/17 MRSA MDRO Source:: ESBL Urine, URINE MRSA Past Surgical History: Back Surgery, Hysterectomy Additional Past Surgical History / Comment(s): cystoscopy, ureteroscopy,OPEN KIDNEY SURGERY FOR CALCULI. LITHRTRIPSY X 2.had i ovary out when young and 2nd one out w/ hysterectomy, lumbar laminectomy,cataracts, cystoscopy with JJ stent placement r/t kidney stones 1-3-18 Past Anesthesia/Blood Transfusion Reactions: No Reported Reaction Past Psychological History: No Psychological Hx Reported Smoking Status: Never smoker Past Alcohol Use History: None Reported Past Drug Use History: None Reported - Past Family History Mother Family Medical History: Coronary Artery Disease (CAD) Father Family Medical History: Coronary Artery Disease (CAD), Renal Disease Additional Family Medical History / Comment(s): DIALYSIS. General Exam - General Exam Comments Initial Comments: General: The patient is awake and alert, is following the commands appropriately GCS is 15 does look pale and tired Skin: Skin is warm and dry and no rashes or lesions are noted. Noticed a chronic wounds on the back one on the right side of the left side noticed some packing on it (discharge noticed no odor noticed both cultures were done Eye: Pupils are equal, round and reactive to light, extra-ocular movements are intact; there is normal conjunctiva bilaterally. Ears, nose, mouth and throat: There are moist mucous membranes and no oral lesions. Neck: The neck is supple, there is no tenderness him a no signs of any meningitis Cardiovascular: There is a regular rate and rhythm. No murmur, rub or gallop is appreciated. Respiratory: To auscultation bilateral, raccoons at the both bases right worse than the left Gastrointestinal: Soft, non-distended, non-tender abdomen without masses or organomegaly noted. There is no rebound or guarding present. Bowel sounds are unremarkable. Back: There is no tenderness to palpation in the midline. There is no obvious deformity. Musculoskeletal: Lower extremities have some swelling and tenderness over the calf and distal thighs and according to the family she does have a history of blood clot in the right leg Neurological: CN II-XII intact, Cranial nerves III through XII are intact. There are no obvious motor or sensory deficits. Coordination appears grossly intact. Speech is normal. Psychiatric: Cooperative, seems depressed, no suicidal or homicidal ideation Limitations: no limitations Course Vital Signs 09/06/17 12:42 Temperature 98.7 F Pulse Rate 101 H Respiratory 18 Rate Blood Pressure 129/76 O2 Sat by Pulse 97 Oximetry Venous Dopplers are pending at this time, white count is 11.8 I suspect severe cystitis looking at the urine though sample was not enough ascending the second sample creatinine is 1.17 troponin is elevated EKG was unremarkable head CT is unremarkable chest x-ray confirms pneumonia she be started on a Rocephin and Zithromax will hold Rocephin or Levaquin, will consult to Dr. Sullivan for her wounds will continue her home meds EKG Findings - EKG Comments: EKG Findings:: Edges a normal sinus rhythm ventricular rate is 89 VT interval is 136 QRS duration is a 60 QT/QTC 348/423 review of this EKG reveals T-wave inversion in lead [address] elevation or ST depression noticed in the other leads Medical Decision Making - Lab Data Result diagrams: 09/06/17 13:17 09/06/17 13:17 Lab Results 09/06/17 09/06/17 09/06/17 Range/Units 13:17 13:17 13:17 WBC 11.5 H (3.8-10.6) k/uL RBC 4.47 (3.80-5.40) m/uL Hgb 12.4 (11.4-16.0) gm/dL Hct 40.0 (34.0-46.0) % MCV 89.5 (80.0-100.0) fL MCH 27.7 (25.0-35.0) pg MCHC 31.0 (31.0-37.0) g/dL RDW 15.6 H (11.5-15.5) % Plt Count 330 (150-450) k/uL Neutrophils % 63 % Lymphocytes % 21 % Monocytes % 4 % Eosinophils % 11 % Basophils % 0 % Neutrophils # 7.2 (1.3-7.7) k/uL Lymphocytes # 2.4 (1.0-4.8) k/uL Monocytes # 0.5 (0-1.0) k/uL Eosinophils # 1.2 H (0-0.7) k/uL Basophils # 0.1 (0-0.2) k/uL Hypochromasia Slight PT (9.0-12.0) sec INR (<1.2) APTT (22.0-30.0) sec Sodium 142 (137-145) mmol/L Potassium 4.6 (3.5-5.1) mmol/L Chloride 107 (98-107) mmol/L Carbon Dioxide 29 (22-30) mmol/L Anion Gap 6 mmol/L BUN 23 H (7-17) mg/dL Creatinine 1.17 H (0.52-1.04) mg/dL Est GFR (CKD-EPI)AfAm 53 (>60 ml/min/1.73 sqM) Est GFR (CKD-EPI)NonAf 46 (>60 ml/min/1.73 sqM) Glucose 89 (74-99) mg/dL Plasma Lactic Acid Sahil (0.7-2.0) mmol/L Calcium 8.0 L (8.4-10.2) mg/dL Total Bilirubin 0.4 (0.2-1.3) mg/dL AST 24 (14-36) U/L ALT 18 (9-52) U/L Alkaline Phosphatase 180 H (38-126) U/L Total Creatine Kinase 28 L (30-135) U/L CK-MB (CK-2) 0.3 (0.0-2.4) ng/mL CK-MB (CK-2) Rel Index 1.1 Troponin I 0.025 (0.000-0.034) ng/mL Total Protein 4.9 L (6.3-8.2) g/dL Albumin 2.1 L (3.5-5.0) g/dL 09/06/17 09/06/17 Range/Units 13:17 13:17 WBC (3.8-10.6) k/uL RBC (3.80-5.40) m/uL Hgb (11.4-16.0) gm/dL Hct (34.0-46.0) % MCV (80.0-100.0) fL MCH (25.0-35.0) pg MCHC (31.0-37.0) g/dL RDW (11.5-15.5) % Plt Count (150-450) k/uL Neutrophils % % Lymphocytes % % Monocytes % % Eosinophils % % Basophils % % Neutrophils # (1.3-7.7) k/uL Lymphocytes # (1.0-4.8) k/uL Monocytes # (0-1.0) k/uL Eosinophils # (0-0.7) k/uL Basophils # (0-0.2) k/uL Hypochromasia PT 11.5 (9.0-12.0) sec INR 1.2 H (<1.2) APTT 25.8 (22.0-30.0) sec Sodium (137-145) mmol/L Potassium (3.5-5.1) mmol/L Chloride (98-107) mmol/L Carbon Dioxide (22-30) mmol/L Anion Gap mmol/L BUN (7-17) mg/dL Creatinine (0.52-1.04) mg/dL Est GFR (CKD-EPI)AfAm (>60 ml/min/1.73 sqM) Est GFR (CKD-EPI)NonAf (>60 ml/min/1.73 sqM) Glucose (74-99) mg/dL Plasma Lactic Acid Sahil 1.5 (0.7-2.0) mmol/L Calcium (8.4-10.2) mg/dL Total Bilirubin (0.2-1.3) mg/dL AST (14-36) U/L ALT (9-52) U/L Alkaline Phosphatase (38-126) U/L Total Creatine Kinase (30-135) U/L CK-MB (CK-2) (0.0-2.4) ng/mL CK-MB (CK-2) Rel Index Troponin I (0.000-0.034) ng/mL Total Protein (6.3-8.2) g/dL Albumin (3.5-5.0) g/dL Disposition Clinical Impression: Generalized weakness, Pneumonia, Chronic ulcer of buttock Disposition: ADMITTED IP TO THIS HOSP Condition: Good Referrals: Solo Ferro DO [Primary Care Provider] - 1-2 days
[2017-09-06] MEDS ORDERED: ONDANSETRON 4 MG/2 ML VIAL IVP PRN (15:08)
[2017-09-06] MEDS ORDERED: NALOXONE 0.4 MG/ML 1 ML VIAL IV PRN (15:08)
[2017-09-06] MEDS ORDERED: ACETAMINOPHEN TAB 325 MG TAB PO PRN (15:08)
[2017-09-06] MEDS ORDERED: PROMETHAZINE 25 MG TAB PO PRN (15:16)
[2017-09-06] MEDS ORDERED: MAGNESIUM HYDROXIDE 2,400 MG/10 ML CUP PO PRN (15:16)
[2017-09-06] MEDS ORDERED: ALBUTEROL NEB (CONC) 2.5 MG/0.5 ML INHALATION PRN (15:16)
[2017-09-06] MEDS ORDERED: ONDANSETRON 4 MG TAB PO PRN (15:16)
[2017-09-06] MEDS ORDERED: HYDROcodone/APAP 7.5-325MG 1 EACH TAB PO PRN (15:16)
[2017-09-06] MEDS ORDERED: NA PHOS,M-B/NA PHOS,DI-BA 133 ML ENEMA RECTAL PRN (15:16)
[2017-09-06] MEDS ORDERED: BISACODYL 10 MG SUPP RECTAL PRN (15:16)
[2017-09-06] MEDS ORDERED: LIDOCAINE 2% GEL 5 ML TUBE TOPICAL PRN (15:16)
[2017-09-06] MEDS ORDERED: LEVOFLOXACIN 500MG-D5W PMX 500 MG in DEXTROSE/WATER 1 100ML.BAG IVPB STA (15:19)
[2017-09-06] MEDS ORDERED: cefTRIAXone 2,000 MG in SODIUM CHLORIDE 0.9% 100 ML IVPB STA (15:19)
[2017-09-06] MEDS ORDERED: cefTRIAXone IN SWFI 2,000 MG/20 ML SYRINGE IVP STA (15:26)
[2017-09-06 15:49] LABS: Appearance,Urine Turbid (Clear); Bacteria,Urine Few /hpf; Bilirubin,Urine Negative (Negative); Blood,Urine Small (Negative); Budding Yeast,Urine Many /hpf; Color,Urine Yellow; Glucose,Urine (UA) Negative (Negative); Ketones,Urine Negative (Negative); Leukocyte Esterase,Urine Large (Negative); Mucus,Urine Occasional /hpf; Nitrite,Urine Negative (Negative); PH, Urine 5.5 (5.0-8.0); Protein,Urine 1+ (Negative); RBC,Urine 120 /hpf (0-5); Specific Gravity,Urine 1.014 (1.001-1.035); WBC,Urine >182 /hpf (0-5)
[2017-09-06] MEDS ORDERED: HEPARIN SODIUM,PORCINE 10,000 UNIT/ML 1 ML VIAL IV ONE (16:14)
[2017-09-06] MEDS ORDERED: HEPARIN SODIUM,PORCINE 5,000 UNIT/ML 1 ML VIAL IV PRN (16:14)
[2017-09-06] MEDS ORDERED: NACL IV SCH ×2 (16:15)
[2017-09-06] MEDS ORDERED: DEXTROSE IV SCH ×2 (16:15)
[2017-09-06] MEDS ORDERED: WATER IV SCH ×2 (16:15)
[2017-09-06] MEDS ORDERED: HEPARIN SOD PORK IV SCH ×2 (16:15)
--- NOTE | 2017-09-06 16:15 | US ---
EXAMINATION TYPE: US venous doppler duplex LE BI DATE OF EXAM: 09/06/2017 3:04 PM COMPARISON: NONE CLINICAL HISTORY: Pain. SIDE PERFORMED: Bilateral TECHNIQUE: The lower extremity deep venous system is examined utilizing real time linear array sonog tono with graded compression, doppler sonography and color-flow sonography. VESSELS IMAGED: External Iliac Vein (EIV) Common Femoral Vein Deep Femoral Vein Greater Saphenous Vein * Femoral Vein Popliteal Vein Small Saphenous Vein * Proximal Calf Veins-not visualized (* superficial vessels) Right Leg: Positive for DVT starting in the EIV extending through the distal popliteal veins Left Leg: Positive for DVT from proximal femoral vein through distal popliteal veins. Some flow is s een in mid and distal femoral vein, but vein not compressible. Technically difficult. Pitting edema, non-cooperative patient. IMPRESSION: Bilateral deep venous thrombosis in the lower extremities, results relayed to Dr. Nate cordon the EC telephonically at the time of interpretation.
[2017-09-06] MEDS: ASPIRIN 81 MG PO SCH (17:20)
[2017-09-06] MEDS: HEPARIN SODIUM,PORCINE 25,000 UNIT in DEXTROSE 5% IN WATER 500 ML IV SCH ×2 (17:28)
--- NOTE | 2017-09-06 17:32 | P.HPIM ---
History of Present Illness 73-year-old female patient [facility] bedbound 9 from her previous hospitalization has been bedbound with the couple decubitus ulcers 1 is stage I the other one is stage 3-4 came in lethargic when I evaluated patient was not lethargic but he patient has a Melendez catheter urine peak and dark does appear to have significantly abnormal urine, patient had Pseudomonas and ESBL lives alone pneumonia and Pseudomonas in the past had multiple hospitalizations with urinary tract infection. Patient is also on fentanyl patch. Patient has a DVT which appears to be chronic has been there in the past 2 and patient is already in anticoagulation was which will be continued. Review of Systems REVIEW OF SYSTEMS: CONSTITUTIONAL: No fever, no malaise, no fatigue. HEENT: No recent visual problems or hearing problems. Denied any sore throat. CARDIOVASCULAR: No chest pain, orthopnea, PND, no palpitations, no syncope. PULMONARY: No shortness of breath, no cough, no hemoptysis. GASTROINTESTINAL: No diarrhea, no nausea, no vomiting, no abdominal pain. Normoactive bowel sounds. NEUROLOGICAL: No headaches, no weakness, no numbness. HEMATOLOGICAL: Denies any bleeding or petechiae. GENITOURINARY: Denies any burning micturition, frequency, or urgency. MUSCULOSKELETAL/RHEUMATOLOGICAL: Denies any joint pain, swelling, or any muscle pain. ENDOCRINE: Denies any polyuria or polydipsia. The rest of the 14-point review of systems is negative. Past Medical History Past Medical History: Atrial Fibrillation, CVA/TIA, Diabetes Mellitus, GERD/ Reflux, Hypertension, Osteoarthritis (OA), Renal Disease Additional Past Medical History / Comment(s): CHRONIC UTI OVER THE PAST YEARS. PRIOR URINARY CALCULI. LEFT SIDED WEAKNESS.neuropathy, past uterine fibroids, pvd, paroxysmal afib, pressure sores rt heel/buttocks, difficulty swallowing pills. PICC LINE DISCONTINUED History of Any Multi-Drug Resistant Organisms: ESBL, MRSA Date of last positivie culture/infection: 08/17/17 ESBL, 04/23/17 MRSA MDRO Source:: ESBL Urine, URINE MRSA Past Surgical History: Back Surgery, Hysterectomy Additional Past Surgical History / Comment(s): cystoscopy, ureteroscopy,OPEN KIDNEY SURGERY FOR CALCULI. LITHRTRIPSY X 2.had i ovary out when young and 2nd one out w/ hysterectomy, lumbar laminectomy,cataracts, cystoscopy with JJ stent placement r/t kidney stones --18 Past Anesthesia/Blood Transfusion Reactions: No Reported Reaction Past Psychological History: No Psychological Hx Reported Smoking Status: Never smoker Past Alcohol Use History: None Reported Past Drug Use History: None Reported - Past Family History Mother Family Medical History: Coronary Artery Disease (CAD) Father Family Medical History: Coronary Artery Disease (CAD), Renal Disease Additional Family Medical History / Comment(s): DIALYSIS. Medications and Allergies Home Medications Medication Instructions Recorded Confirmed Type Aspirin 81 mg PO DAILY@169901/26/14 09/06/17 History Gabapentin [Neurontin] 300 mg PO BID@1000,209901/26/14 09/06/17 History Metoprolol Tartrate [Lopressor] 12.5 mg PO BID@1000,209901/26/14 09/06/17 History Primidone [Mysoline] 50 mg PO BID@1000,209901/26/14 09/06/17 History Acetaminophen [Tylenol] 650 mg PO Q4H PRN 04/21/17 09/06/17 History Bisacodyl [Dulcolax] 10 mg RECTAL DAILY PRN 04/21/17 09/06/17 History Cholecalciferol [Vitamin D3] 1,000 unit PO DAILY@169904/21/17 09/06/17 History Folic Acid 1 mg PO DAILY@169904/21/17 09/06/17 History Lidocaine 2% Gel [Xylocaine Jelly 1 applic TOPICAL DAILY PRN 04/21/17 09/06/17 History 2%] Magnesium Hydroxide [Milk of 2,400 mg PO DAILY PRN 04/21/17 09/06/17 History Magnesia] Na Phos,M-B/Na Phos,Di-Ba [Fleet 133 ml RECTAL ONCE PRN 04/21/17 09/06/17 History Adult] Albuterol Nebulized (Conc) 2.5 mg INHALATION RT-Q6H PRN 08/17/17 09/06/17 History [Ventolin Nebulized (Conc)] Apixaban [Eliquis] 5 mg PO BID@0800,169908/17/17 09/06/17 History Ferrous Sulfate [Iron (65 MG 325 mg PO DAILY@169908/17/17 09/06/17 History Elemental)] Ondansetron [Zofran] 4 mg PO Q12HR PRN 08/17/17 09/06/17 History Pantoprazole [Protonix] 40 mg PO BID@0600,1600 08/17/17 09/06/17 History Promethazine [Phenergan] 25 mg PO Q6HR PRN 08/17/17 09/06/17 History Collagenase [Santyl] 1 applic TOPICAL HS applic 08/22/17 09/06/17 Rx Hydrocodone/Acetaminophen [[place] 1 tab PO Q6HR PRN #10 tablet 08/22/17 09/06/17 Rx 7.5-325] Mirtazapine [Remeron (Soluspan)] 15 mg PO HS@2100 #3 tab.rapdis 08/22/17 Rx fentaNYL 12MCG/HR PATCH [Duragesic 12 mcg TRANSDERM Q72H #1 patch 08/22/1709/06 Rx 12MCG/HR] fentaNYL 25MCG/HR PATCH [Duragesic 25 mcg TRANSDERM Q72H #1 patch 08/22/1709/06 Rx 25MCG/HR] Allergies Allergy/AdvReac Type Severity Reaction Status Date / Time amoxicillin [Amoxicillin] Allergy Swelling Verified 09/06/17 12:55 Physical Exam Vitals: Vital Signs Temp Pulse Resp BP Pulse Ox 09/06/17 15:51 93 18 124/74 95 09/06/17 15:08 76 17 123/62 95 09/06/17 12:42 98.7 F 101 H 18 129/76 97 Intake and Output 09/06/17 09/06/17 09/06/17 06:59 14:59 22:59 Other: Weight 79.379 kg PHYSICAL EXAMINATION: GENERAL: The patient is alert and oriented x3, not in any acute distress. Well developed, well nourished. HEENT: Pupils are round and equally reacting to light. EOMI. No scleral icterus. No conjunctival pallor. Normocephalic, atraumatic. No pharyngeal erythema. No thyromegaly. CARDIOVASCULAR: S1 and S2 present. No murmurs, rubs, or gallops. PULMONARY: Chest is clear to auscultation, no wheezing or crackles. ABDOMEN: Soft, nontender, nondistended, normoactive bowel sounds. No palpable organomegaly. MUSCULOSKELETAL: No joint swelling or deformity. EXTREMITIES: No cyanosis, clubbing, or pedal edema. NEUROLOGICAL: Gross neurological examination did not reveal any new focal deficits. Bound SKIN: She does decubitus ulcer one of them is a stage I other one is stage IV Results CBC & Chem 7: 09/06/17 13:17 09/06/17 13:17 Labs: Abnormal Lab Results - Last 24 Hours (Table) 09/06/17 09/06/17 09/06/17 Range/Units 13:17 13:17 13:17 WBC 11.5 H (3.8-10.6) k/uL RDW 15.6 H (11.5-15.5) % Eosinophils # 1.2 H (0-0.7) k/uL INR (<1.2) BUN 23 H (7-17) mg/dL Creatinine 1.17 H (0.52-1.04) mg/dL Calcium 8.0 L (8.4-10.2) mg/dL Alkaline Phosphatase 180 H (38-126) U/L Total Creatine Kinase 28 L (30-135) U/L Total Protein 4.9 L (6.3-8.2) g/dL Albumin 2.1 L (3.5-5.0) g/dL Urine Appearance (Clear) Urine Protein (Negative) Urine Blood (Negative) Ur Leukocyte Esterase (Negative) Urine RBC (0-5) /hpf Urine WBC (0-5) /hpf Urine WBC Clumps (None) /hpf Urine Bacteria (None) /hpf Urine Mucus (None) /hpf Urine Yeast (Budding) (None) /hpf 09/06/17 09/06/17 Range/Units 13:17 15:02 WBC (3.8-10.6) k/uL RDW (11.5-15.5) % Eosinophils # (0-0.7) k/uL INR 1.2 H (<1.2) BUN (7-17) mg/dL Creatinine (0.52-1.04) mg/dL Calcium (8.4-10.2) mg/dL Alkaline Phosphatase (38-126) U/L Total Creatine Kinase (30-135) U/L Total Protein (6.3-8.2) g/dL Albumin (3.5-5.0) g/dL Urine Appearance Turbid H (Clear) Urine Protein 1+ H (Negative) Urine Blood Small H (Negative) Ur Leukocyte Esterase Large H (Negative) Urine RBC 120 H (0-5) /hpf Urine WBC >182 H (0-5) /hpf Urine WBC Clumps Many H (None) /hpf Urine Bacteria Few H (None) /hpf Urine Mucus Occasional H (None) /hpf Urine Yeast (Budding) Many H (None) /hpf Assessment and Plan Plan: -Possible urinary tract infection: Considering his her previous urine cultures patient will be started on ertapenem and infectious disease will be consulted. Patient does have bilateral atelectasis doesn't have pneumonia patient denied any cough. Patient doesn't have any fever. -Decompress ulcer chronic -Chronic Melendez catheter which will be removed and replaced and patient UTI secondary to chronic Melendez catheter -Atrial fibrillation presently rate controlled anti-correlation will be continued -DVT in bilateral lower limbs chronically debilitated bedbound continue with anti-correlation no active additional anticoagulation will be started. -Hypertension continue with lisinopril -Chronic debility with decubitus ulcers -CODE STATUS full code discussed with the patient
[2017-09-06] MEDS: APIXABAN 5 MG TAB PO SCH (17:35)
[2017-09-06] MEDS: FOLIC ACID 1 MG TAB PO SCH (17:35)
[2017-09-06] MEDS: PANTOPRAZOLE 40 MG TABLET PO SCH (17:35)
[2017-09-06] MEDS: FERROUS SULFATE 325 MG TAB PO SCH (17:35)
[2017-09-06] MEDS: CHOLECALCIFEROL 1,000 UNIT TAB PO SCH (17:35)
[2017-09-06] MEDS: ERTAPENEM 1 GM in SODIUM CHLORIDE 0.9% 50 ML IVPB SCH (19:17)
[2017-09-06] MEDS: MIRTAZAPINE 15 MG TAB PO SCH (21:01)
[2017-09-06] MEDS: PRIMIDONE 50 MG TAB PO SCH (21:01)
[2017-09-06] MEDS: COLLAGENASE 250 UNIT/GM OINTMENT 30 GM TUBE TOPICAL SCH (21:01)
[2017-09-06] MEDS: GABAPENTIN 300 MG CAP PO SCH (21:01)
[2017-09-06] MEDS: METOPROLOL TARTRATE 12.5 MG TAB PO SCH (21:01)
[2017-09-07 02:18] VITALS: BMI 27.3
[2017-09-07] MEDS: HEPARIN SODIUM,PORCINE 25,000 UNIT in DEXTROSE 5% IN WATER 500 ML IV SCH ×4 (04:20→17:21)
[2017-09-07 04:59] LABS: HCT 34.8 % (34.0-46.0); HGB 10.8 gm/dL (11.4-16.0); Hypochromasia Marked; MCH 28.1 pg (25.0-35.0); MCHC 31.1 g/dL (31.0-37.0); MCV 90.5 fL (80.0-100.0); Mean Platelet Volume 8.3; Platelet Count 243 k/uL (150-450); RBC 3.85 m/uL (3.80-5.40); RDW 15.7 % (11.5-15.5)
[2017-09-07] MEDS: PANTOPRAZOLE 40 MG TABLET PO SCH ×2 (05:12→17:21)
[2017-09-07 05:15] LABS: Calcium 7.7 mg/dL (8.4-10.2)
[2017-09-07 05:21] LABS: Glucose,Whole Blood 98 mg/dL (75-99)
--- NOTE | 2017-09-07 07:25 | CONS ---
DATE OF CONSULTATION: 09/07/2017 This is a 72-year-old female, she came to the emergency room with history of swelling of both lower extremity. [facility], quite lethargic and patient has a history of atrial fibrillation. Patient had ultrasound of the leg which shows bilateral extensive DVT. PAST HISTORY: History of atrial fibrillation, history of CVA, history of diabetes, history of hypertension, history of renal disease. Patient also has a history of chronic UTI. Patient is nonambulatory. Patient was seen in her room. She is quite lethargic. Her neck is supple. Chest has crackles bilateral. Abdomen is soft. Femorals are 1 +. Patient has some swelling of her lower extremity, mild tenderness noted in the calf area. No vascular compromise. Patient has an extensive DVT bilateral. Patient is on anticoagulation. Follow with you. ANNA / DANIEL: [id number] / MTDD
[2017-09-07] MEDS: GABAPENTIN 300 MG CAP PO SCH ×2 (10:10→20:58)
[2017-09-07] MEDS: PRIMIDONE 50 MG TAB PO SCH ×2 (10:10→20:59)
[2017-09-07] MEDS: METOPROLOL TARTRATE 12.5 MG TAB PO SCH ×2 (10:10→20:58)
[2017-09-07] MEDS: APIXABAN 5 MG TAB PO SCH (10:10)
[2017-09-07] MEDS: ERTAPENEM 1 GM in SODIUM CHLORIDE 0.9% 50 ML IVPB SCH (10:12)
[2017-09-07 11:38] LABS: Glucose,Whole Blood 80 mg/dL (75-99)
[2017-09-07] MEDS: CHOLECALCIFEROL 1,000 UNIT TAB PO SCH (17:21)
[2017-09-07] MEDS: ASPIRIN 81 MG PO SCH (17:21)
[2017-09-07] MEDS: FERROUS SULFATE 325 MG TAB PO SCH (17:21)
[2017-09-07] MEDS: FOLIC ACID 1 MG TAB PO SCH (17:22)
--- NOTE | 2017-09-07 17:53 | CONS ---
CONSULTATION DATE OF SERVICE: 09/07/2017 REASON FOR CONSULTATION: Multiple wounds and possible UTI. HISTORY OF PRESENT ILLNESS: The patient is a 72-year-old female who was recently admitted at this facility about 3 weeks ago. The patient did have evidence of ESBL and Pseudomonas aeruginosa, catheter associated urinary tract infection in addition to the left gluteal pressure ulcer stage III. The patient had finished antibiotic therapy for the same and PICC line was subsequently discontinued. The patient now has been brought into the ER at [facility] yesterday afternoon. The patient having increased edema in upper and lower extremity. The patient noted to be quite lethargic by long-term staff. The patient subsequently has been evaluated by the ER physician. The patient did have a lower extremity Doppler which did shows positive for DVT starting from the IV extending through the distal popliteal vein. The left leg was positive for DVT as well. The patient though did not have any high-grade fever. She did have a UA obtained which was positive with more than 1-2 WBC and some yeast. The patient did have a mildly elevated white count of 11.5. The patient has been started on ertapenem. I was asked to see the patient for further recommendations regarding antibiotic as well as the local wound care. The patient is currently lethargic, sleepy. I was unable to provide any history. Most of the information has been obtained from review of the chart and talking to the who was present at bedside. He did mention that the wound had been taken care of by the wound care physician at [facility] and apparently debrided those wounds. REVIEW OF SYSTEMS: Could not be obtained. The positive points have been mentioned in the HPI. PAST MEDICAL HISTORY: Past medical history significant for atrial fibrillation, CVA, TIA and diabetes mellitus, gastroesophageal reflux disease, hypertension, hydronephrosis, left recurrent UTIs, requiring chronic Melendez catheter. PAST SURGICAL HISTORY: Appendectomy, hysterectomy, with the catheter placement. SOCIAL HISTORY: No history of smoking, drinking or drug use. Currently at [facility]. FAMILY HISTORY: Mother with history of heart disease. Father history of renal disease and colon disease. ALLERGIES: TO AMOXICILLIN. However, has tolerated Rocephin and meropenem without any problem. MEDICATION: Medications include the patient currently on Mysoline, Protonix, Zofran, Narcan, Remeron, Lopressor, aspirin, Neurontin, folic acid, iron sulfate, Duragesic patch, ertapenem 1 g daily, vitamin D3, Dulcolax, Aspirin, Eliquis, [place], Tylenol. EXAMINATION: Blood pressure is 114/62 with a pulse of 66, temperature 97.3. She is 95% 2 L nasal cannula. General description is an elderly female lying in bed in no distress. No tachypnea. No accessory muscles of respiration use. HEENT examination is slight pallor. No scleral icterus. Oral mucosa membranes dry. Neck trachea central. No thyromegaly. Lungs unlabored breathing. Clear to auscultation. No wheeze or crackles. Heart is S1, S2. Regular rate and rhythm. Abdomen soft no tenderness. No guarding or no rigidity. Extremities: No edema of the feet. Examination of the back area the patient did have a stage III pressure ulcer to the left gluteal area. However, the patient also now developed a wound to the sacrum area with slough tissue. No surrounding erythema. No foul smelling drainage. Neurologic: The patient remains lethargic. Orientation could not be determined. LAB: Hemoglobin is 10.8, white count 10, admission white count was 11.5 with a BUN of 22, creatinine 1.10. Electrolytes have been normal. DIAGNOSTIC IMPRESSION AND PLAN: 1. Patient with right gluteal pressure ulcer stage III along with history of pressure ulcer to the sacral area with slough tissue. No surrounding edema or foul smelling drainage. Recommend local wound care. 2. Patient with a positive urinalysis in a patient who did have a history of a catheter associated urinary tract infection with multiple pathogens. Melendez catheter has been changed with question of possible colonization with urinary tract infection. PLAN: 1. Local wound care to the right gluteal and the sacral wound with Santyl followed by moist dressing to keep the area off the pressure. 2. RN has been advised to get a new urine culture from new Melendez that was placed in the ER last night. 3. Keep the patient on Invanz 1 g daily while waiting for the repeat cultures to finalize. Thank you for this consultation follow this patient. Will follow this patient along with you. MMODL / IJN: [id number] /
--- NOTE | 2017-09-07 19:12 | P.PN ---
Subjective 71-year-old the female admitted for possible urinary tract infection and patient is excessively sleepy secondary to encephalopathy from either medications or infection itself which is toxic encephalopathy. Patient is being continued on ertapenem not able to get much of the history from the patient as patient is hard to arouse but although arousable. Objective - Vital Signs Vital signs: Vital Signs Temp 97.3 F L 09/07/17 14:50 Pulse 66 09/07/17 14:50 Resp 16 09/07/17 14:50 BP 114/62 09/07/17 14:50 Pulse Ox 95 09/07/17 14:50 Intake & Output 09/07/17 09/07/17 09/08/17 06:59 18:59 06:59 Intake Total 644.164 9637.120 Output Total 620 Balance 310.461 443.120 Weight 79.379 kg 79.379 kg Intake: IV 800 Sodium Chloride 0.9% 1, 800 000 ml @ 100 mls/hr IV . Q10H [facility] Rx#:[id number] Intake, IV Titration 310.461 263.120 Amount Heparin Sodium,Porcine 25 310.461 263.120 ,000 unit In Dextrose 5% in Water 500 ml @ 18 UNITS/KG/HR 28.57 mls/hr IV .[id number] [facility] [place] Rx#: [id number] Output: Urine 620 Uretheral (Melendez) 620 Other: Voiding Method Indwelling Catheter Indwelling Catheter # Bowel Movements 2 1 - Exam PHYSICAL EXAMINATION: GENERAL: Drowsy arousable, not in any acute distress. Well developed, well nourished. HEENT: Pupils are round and equally reacting to light. EOMI. No scleral icterus. No conjunctival pallor. Normocephalic, atraumatic. No pharyngeal erythema. No thyromegaly. CARDIOVASCULAR: S1 and S2 present. No murmurs, rubs, or gallops. PULMONARY: Chest is clear to auscultation, no wheezing or crackles. ABDOMEN: Soft, nontender, nondistended, normoactive bowel sounds. No palpable organomegaly. MUSCULOSKELETAL: No joint swelling or deformity. EXTREMITIES: No cyanosis, clubbing, or pedal edema. NEUROLOGICAL: Gross neurological examination did not reveal any new focal deficits. Bound SKIN: She does decubitus ulcer one of them is a stage I other one is stage IV - Labs CBC & Chem 7: 09/07/17 04:43 09/07/17 04:43 Labs: Abnormal Lab Results - Last 24 Hours (Table) 09/06/17 09/07/17 09/07/17 Range/Units 23:33 04:43 04:43 Hgb 10.8 L (11.4-16.0) gm/dL RDW 15.7 H (11.5-15.5) % APTT 191.0 H* (22.0-30.0) sec Chloride 109 H (98-107) mmol/L BUN 22 H (7-17) mg/dL Creatinine 1.10 H (0.52-1.04) mg/dL Glucose 105 H (74-99) mg/dL Calcium 7.7 L (8.4-10.2) mg/dL 09/07/17 09/07/17 Range/Units 04:43 12:42 Hgb (11.4-16.0) gm/dL RDW (11.5-15.5) % APTT 154.0 H* 53.2 H (22.0-30.0) sec Chloride (98-107) mmol/L BUN (7-17) mg/dL Creatinine (0.52-1.04) mg/dL Glucose (74-99) mg/dL Calcium (8.4-10.2) mg/dL Microbiology - Last 24 Hours (Table) 09/06/17 13:17 Blood Culture - Preliminary Blood No Growth after 24 hours 09/06/17 13:02 Gram Stain - Preliminary Buttock Wound Culture - Preliminary Ivory albicans 09/06/17 13:00 Gram Stain - Preliminary Buttock Wound Culture - Preliminary 09/06/17 13:22 Urine Culture - Preliminary Urine,Catheterized Assessment and Plan Plan: -Possible urinary tract infection: Considering his her previous urine cultures patient will be started on ertapenem and infectious disease evaluated the patient -Drowsiness secondary to toxic encephalopathy either from medications or infection, will monitor -Decubitus ulcer chronic: sentyl cream as per infectious disease -Chronic Melendez catheter which will be removed and replaced and patient UTI secondary to chronic Melendez catheter -Atrial fibrillation presently rate controlled anti-coagulation will be continued, patient is presently on IV heparin as she failed swallow evaluation due to excessive sleep if patient passes bedside swallow eval IV heparin will be discontinued and patient will be started back on oral anticoagulation -DVT in bilateral lower limbs chronically debilitated bedbound continue with anti-coagulation as mentioned above -Hypertension continue with lisinopril, -Chronic debility with decubitus ulcers -CODE STATUS full code discussed with the patient
[2017-09-07] MEDS: COLLAGENASE 250 UNIT/GM OINTMENT 30 GM TUBE TOPICAL SCH (20:15)
[2017-09-07] MEDS: MIRTAZAPINE 15 MG TAB PO SCH (20:59)
[2017-09-07 22:34] LABS: Glucose,Whole Blood 86 mg/dL (75-99)
[2017-09-08] MEDS: PANTOPRAZOLE 40 MG TABLET PO SCH ×2 (04:20→18:14)
[2017-09-08] MEDS: HEPARIN SODIUM,PORCINE 25,000 UNIT in DEXTROSE 5% IN WATER 500 ML IV SCH ×2 (05:09)
[2017-09-08] MEDS: METOPROLOL TARTRATE 12.5 MG TAB PO SCH ×2 (10:20→20:32)
[2017-09-08] MEDS: PRIMIDONE 50 MG TAB PO SCH ×2 (10:20→20:31)
[2017-09-08] MEDS: ERTAPENEM 1 GM in SODIUM CHLORIDE 0.9% 50 ML IVPB SCH (10:20)
[2017-09-08] MEDS: GABAPENTIN 300 MG CAP PO SCH ×2 (10:20→20:32)
--- NOTE | 2017-09-08 15:14 | P.PN ---
Subjective 71-year-old the female admitted for possible urinary tract infection and patient is excessively sleepy secondary to encephalopathy from either medications or infection itself which is toxic encephalopathy. Patient is being continued on ertapenem not able to get much of the history from the patient as patient is hard to arouse but although arousable. 09/08/2017 Patient did not do well with the swallow evaluation because of which patient remains on IV heparin will lead to the swallow evaluation again later in the day and will discontinue all the opiates. Patient is still bit confused Objective - Vital Signs Vital signs: Vital Signs Temp 97.5 F L 09/08/17 14:23 Pulse 59 L 09/08/17 14:23 Resp 15 09/08/17 14:23 BP 132/66 09/08/17 14:23 Pulse Ox 96 09/08/17 14:23 Intake & Output 09/07/17 09/08/17 09/08/17 18:59 06:59 18:59 Intake Total 6649.551 4519.79 168.262 Output Total 620 550 Balance 962.275 2829.79 168.262 Weight 79.379 kg Intake: IV 800 800 Sodium Chloride 0.9% 1, 800 800 000 ml @ 100 mls/hr IV . Q10H [facility] Rx#:[id number] Intake, IV Titration 935.107 4159.79 168.262 Amount Ertapenem 1 gm In Sodium 100 Chloride 0.9% 50 ml @ 100 mls/hr IVPB DAILY [facility] Rx #:[id number] Heparin Sodium,Porcine 25 263.120 224.79 68.262 ,000 unit In Dextrose 5% in Water 500 ml @ 18 UNITS/KG/HR 28.57 mls/hr IV .[id number] [facility] Rx#: [id number] Sodium Chloride 0.9% 1, 800 000 ml @ 100 mls/hr IV . Q10H [facility] Rx#:[id number] Output: Urine 620 550 Uretheral (Melendez) 620 Other: Voiding Method Indwelling Catheter Indwelling Catheter Indwelling Catheter # Bowel Movements 1 1 - Exam PHYSICAL EXAMINATION: GENERAL: more awake but confused, not in any acute distress. Well developed, well nourished. HEENT: Pupils are round and equally reacting to light. EOMI. No scleral icterus. No conjunctival pallor. Normocephalic, atraumatic. No pharyngeal erythema. No thyromegaly. CARDIOVASCULAR: S1 and S2 present. No murmurs, rubs, or gallops. PULMONARY: Chest is clear to auscultation, no wheezing or crackles. ABDOMEN: Soft, nontender, nondistended, normoactive bowel sounds. No palpable organomegaly. MUSCULOSKELETAL: No joint swelling or deformity. EXTREMITIES: No cyanosis, clubbing, or pedal edema. NEUROLOGICAL: Gross neurological examination did not reveal any new focal deficits. Bound SKIN: She does decubitus ulcer one of them is a stage I other one is stage IV - Labs CBC & Chem 7: 09/07/17 04:43 09/07/17 04:43 Labs: Abnormal Lab Results - Last 24 Hours (Table) 09/08/17 09/08/17 Range/Units 07:49 14:41 APTT 93.1 H 58.1 H (22.0-30.0) sec Microbiology - Last 24 Hours (Table) 09/06/17 13:02 Gram Stain - Preliminary Buttock Wound Culture - Preliminary Ivory albicans Group D Enterococcus 09/06/17 13:22 Urine Culture - Final Urine,Catheterized Ivory albicans 09/06/17 13:17 Blood Culture - Preliminary Blood No Growth after 24 hours Assessment and Plan Plan: -Possible urinary tract infection: Considering his her previous urine cultures patient will be started on ertapenem and infectious disease evaluated the patient -Drowsiness secondary to toxic encephalopathy either from medications or infection, will monitor -Decubitus ulcer chronic: sentyl cream as per infectious disease -Chronic Melendez catheter which will be removed and replaced and patient UTI secondary to chronic Melendez catheter -Atrial fibrillation presently rate controlled anti-coagulation will be continued, patient is presently on IV heparin as she failed swallow evaluation due to excessive sleep if patient passes bedside swallow eval IV heparin will be discontinued and patient will be started back on oral anticoagulation -DVT in bilateral lower limbs chronically debilitated bedbound continue with anti-coagulation as mentioned above -Hypertension continue with lisinopril, -Chronic debility with decubitus ulcers -CODE STATUS full code discussed with the patient
[2017-09-08] MEDS: FERROUS SULFATE 325 MG TAB PO SCH (18:14)
[2017-09-08] MEDS: FOLIC ACID 1 MG TAB PO SCH (18:14)
[2017-09-08] MEDS: CHOLECALCIFEROL 1,000 UNIT TAB PO SCH (18:14)
[2017-09-08] MEDS: ASPIRIN 81 MG PO SCH (18:14)
[2017-09-08] MEDS: APIXABAN 5 MG TAB PO SCH (18:47)
[2017-09-08] MEDS: COLLAGENASE 250 UNIT/GM OINTMENT 30 GM TUBE TOPICAL SCH (20:34)
[2017-09-08] MEDS: MIRTAZAPINE 15 MG TAB PO SCH (20:34)
[2017-09-09] MEDS: PANTOPRAZOLE 40 MG TABLET PO SCH ×2 (05:37→17:15)
[2017-09-09 07:34] LABS: HCT 34.2 % (34.0-46.0); HGB 11.3 gm/dL (11.4-16.0); MCH 27.9 pg (25.0-35.0); MCHC 33.1 g/dL (31.0-37.0); Mean Platelet Volume 8.3; Platelet Count 270 k/uL (150-450); RBC 4.05 m/uL (3.80-5.40); RDW 15.5 % (11.5-15.5); WBC 7.6 k/uL (3.8-10.6)
[2017-09-09 07:36] LABS: MCV 84.4 fL (80.0-100.0)
[2017-09-09 08:15] LABS: Calcium 7.8 mg/dL (8.4-10.2); Potassium 4.2 mmol/L (3.5-5.1)
[2017-09-09] MEDS: PRIMIDONE 50 MG TAB PO SCH ×2 (08:53→21:16)
[2017-09-09] MEDS: GABAPENTIN 300 MG CAP PO SCH ×2 (08:53→21:16)
[2017-09-09] MEDS: METOPROLOL TARTRATE 12.5 MG TAB PO SCH ×2 (08:53→21:16)
[2017-09-09] MEDS: ERTAPENEM 1 GM in SODIUM CHLORIDE 0.9% 50 ML IVPB SCH (08:54)
[2017-09-09] MEDS: APIXABAN 5 MG TAB PO SCH ×2 (08:54→17:15)
--- NOTE | 2017-09-09 10:23 | P.PN ---
Subjective 71-year-old the female admitted for possible urinary tract infection and patient is excessively sleepy secondary to encephalopathy from either medications or infection itself which is toxic encephalopathy. Patient is being continued on ertapenem not able to get much of the history from the patient as patient is hard to arouse but although arousable. 09/08/2017 Patient did not do well with the swallow evaluation because of which patient remains on IV heparin will lead to the swallow evaluation again later in the day and will discontinue all the opiates. Patient is still bit confused 09/09/2017 Patient is not confused or patient is awake alert today doing much better. Constitutional: Denied any fatigue denied any fever. Cardio vascular: denied any chest pain, palpitations Gastrointestinal denied any nausea vomiting Pulmonary: Denied any shortness of breath cough Neurologic denied any new focal deficits Objective - Vital Signs Vital signs: Vital Signs Temp 97.0 F L 09/09/17 08:51 Pulse 82 09/09/17 08:51 Resp 16 09/09/17 08:51 BP 120/91 09/09/17 08:51 Pulse Ox 92 L 09/09/17 08:51 Intake & Output 09/08/17 09/09/17 09/09/17 18:59 06:59 18:59 Intake Total 168.262 180 Output Total 1200 3600 500 Balance -1031.738 -3600 -320 Weight 79.379 kg 79.379 kg Intake: Intake, IV Titration 168.262 Amount Ertapenem 1 gm In Sodium 100 Chloride 0.9% 50 ml @ 100 mls/hr IVPB DAILY [facility] Rx #:[id number] Heparin Sodium,Porcine 25 68.262 ,000 unit In Dextrose 5% in Water 500 ml @ 18 UNITS/KG/HR 28.57 mls/hr IV .[id number] [facility] Rx#: [id number] Oral 180 Output: Urine 1200 3600 500 Stool 0 Other: Voiding Method Indwelling Catheter Indwelling Catheter # Bowel Movements 1 - Exam PHYSICAL EXAMINATION: GENERAL: Alert oriented 3, not in any acute distress. Well developed, well nourished. HEENT: Pupils are round and equally reacting to light. EOMI. No scleral icterus. No conjunctival pallor. Normocephalic, atraumatic. No pharyngeal erythema. No thyromegaly. CARDIOVASCULAR: S1 and S2 present. No murmurs, rubs, or gallops. PULMONARY: Chest is clear to auscultation, no wheezing or crackles. ABDOMEN: Soft, nontender, nondistended, normoactive bowel sounds. No palpable organomegaly. MUSCULOSKELETAL: No joint swelling or deformity. EXTREMITIES: No cyanosis, clubbing, or pedal edema. NEUROLOGICAL: Gross neurological examination did not reveal any new focal deficits. Bound SKIN: She does decubitus ulcer one of them is a stage I other one is stage IV - Labs CBC & Chem 7: 09/09/17 07:05 09/09/17 07:05 Labs: Abnormal Lab Results - Last 24 Hours (Table) 09/08/17 09/09/17 09/09/17 Range/Units 14:41 07:05 07:05 Hgb 11.3 L (11.4-16.0) gm/dL APTT 58.1 H (22.0-30.0) sec Chloride 112 H (98-107) mmol/L Glucose 62 L (74-99) mg/dL Calcium 7.8 L (8.4-10.2) mg/dL Microbiology - Last 24 Hours (Table) 09/06/17 13:17 Blood Culture - Preliminary Blood No Growth after 48 hours 09/06/17 13:02 Gram Stain - Preliminary Buttock Wound Culture - Preliminary Ivory albicans Group D Enterococcus Assessment and Plan Plan: -Possible urinary tract infection: Considering his her previous urine cultures patient will be started on ertapenem and infectious disease evaluated the patient -Drowsiness secondary to toxic encephalopathy either from medications or infection, resolved now, possibly of discharge tomorrow to subacute rehabilitation, awaiting cultures and studies from the urine urinary showing enterococcus group B -Decubitus ulcer chronic: sentyl cream as per infectious disease -Chronic Melendez catheter which will be removed and replaced and patient UTI secondary to chronic Melendez catheter -Atrial fibrillation presently rate, rate controlled now and is started on oral anticoagulation -DVT in bilateral lower limbs chronically debilitated bedbound continue with anti-coagulation as mentioned above -Hypertension continue with lisinopril, -Chronic debility with decubitus ulcers -CODE STATUS full code discussed with the patient
[2017-09-09] MEDS ORDERED: ALBUTEROL NEBULIZED 2.5 MG/3 ML INHALATION PRN (11:00)
[2017-09-09] MEDS: FOLIC ACID 1 MG TAB PO SCH (17:15)
[2017-09-09] MEDS: FERROUS SULFATE 325 MG TAB PO SCH (17:15)
[2017-09-09] MEDS: ASPIRIN 81 MG PO SCH (17:16)
[2017-09-09] MEDS: CHOLECALCIFEROL 1,000 UNIT TAB PO SCH (17:16)
[2017-09-09] MEDS: COLLAGENASE 250 UNIT/GM OINTMENT 30 GM TUBE TOPICAL SCH (21:16)
[2017-09-09] MEDS: MIRTAZAPINE 15 MG TAB PO SCH (21:16)
--- NOTE | 2017-09-09 23:49 | PN ---
PROGRESS NOTE DATE OF SERVICE: 09/09/2017. REASON FOR FOLLOWUP: 1. Right gluteal and sacral pressure ulcer stage III. 2. Urinary tract infection. INTERVAL HISTORY: The patient is afebrile. She seems to be more awake, alert, breathing comfortably. No chest pain. No cough. Denies any abdominal pain. No diarrhea. EXAMINATION: Blood pressure 120/79 with a pulse of 64, temperature of 97. She is 95% on 2 L nasal cannula. General description is an elderly female lying in bed in no distress. RESPIRATORY SYSTEM: Unlabored breathing, clear to auscultation anteriorly. HEART: S1, S2. Regular rate and rhythm. ABDOMEN: Soft, no tenderness. LABS: Hemoglobin 11.2, white count of 7.6, BUN of 16, creatinine 0.7. DIAGNOSTIC IMPRESSION/PLAN: 1. Patient with right gluteal stage II pressure ulcer. Continue local wound care with Santyl. Keep pressure. 2. Patient with catheter-associated urinary tract infection Enterococcus, ampicillin sensitive along with Ivory. Repeat culture showing Ivory. The patient did have allergy and is covered with , which can be discontinued at discharge and begin a short course of oral Diflucan. Continue supportive care. MMODL / IJN: [id number] /
[2017-09-10 02:06] VITALS: RESP 16
[2017-09-10] MEDS: PANTOPRAZOLE 40 MG TABLET PO SCH ×3 (05:13→17:00)
[2017-09-10] MEDS: APIXABAN 5 MG TAB PO SCH ×3 (08:26→17:00)
[2017-09-10] MEDS: ERTAPENEM 1 GM in SODIUM CHLORIDE 0.9% 50 ML IVPB SCH (08:29)
[2017-09-10] MEDS: METOPROLOL TARTRATE 12.5 MG TAB PO SCH (08:50)
[2017-09-10] MEDS: GABAPENTIN 300 MG CAP PO SCH (08:50)
[2017-09-10] MEDS: PRIMIDONE 50 MG TAB PO SCH (08:51)
[2017-09-10] MEDS ORDERED: FLUCONAZOLE 100 MG TAB PO SCH (09:00)
[2017-09-10 14:35] VITALS: BP 131/61; PULSE 63; TEMP 97
--- NOTE | 2017-09-10 15:35 | P.DS ---
Providers Date of admission: 09/06/17 15:08 Attending physician: Hitesh Hardin Consults: 09/06/17 15:08 Consult Physician Stat Consulting Provider: Mary Sullivan Consult Reason/Comments: Ch wounds on the lower back and buttocks Do you want consulting provider notified?: Yes 09/06/17 16:15 Consult Physician Stat Consulting Provider: Karthik Ortiz Consult Reason/Comments: DVT Do you want consulting provider notified?: Yes Primary care physician: [facility] Course: 71-year-old the female admitted for possible urinary tract infection and patient is excessively sleepy secondary to encephalopathy from either medications or infection itself which is toxic encephalopathy. Patient is being continued on ertapenem not able to get much of the history from the patient as patient is hard to arouse but although arousable. 09/08/2017 Patient did not do well with the swallow evaluation because of which patient remains on IV heparin will lead to the swallow evaluation again later in the day and will discontinue all the opiates. Patient is still bit confused 09/09/2017 Patient is not confused or patient is awake alert today doing much better. 09/10/2017 urine cultures showing enterococcus initial one the repeat one set not showing enterococcus did show Ivory and both cultures. Initially we wanted to discharge patient on amoxicillin which patient is ALLERGIC to, after discussing with infectious disease patient will only be discharged on flucanazole for Ivory in the urine. Suspicion is low that enterococcus is responsible for urinary tract infection. Local wound care please refer to Dr. Victor's dictation. PHYSICAL EXAMINATION: GENERAL: Alert oriented 3, not in any acute distress. Well developed, well nourished. HEENT: Pupils are round and equally reacting to light. EOMI. No scleral icterus. No conjunctival pallor. Normocephalic, atraumatic. No pharyngeal erythema. No thyromegaly. CARDIOVASCULAR: S1 and S2 present. No murmurs, rubs, or gallops. PULMONARY: Chest is clear to auscultation, no wheezing or crackles. ABDOMEN: Soft, nontender, nondistended, normoactive bowel sounds. No palpable organomegaly. MUSCULOSKELETAL: No joint swelling or deformity. EXTREMITIES: No cyanosis, clubbing, or pedal edema. NEUROLOGICAL: Gross neurological examination did not reveal any new focal deficits. 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 continue with anti-coagulation as mentioned above -Hypertension continue with lisinopril, -Chronic debility with decubitus ulcers -CODE STATUS full code discussed with the patient Patient Condition at Discharge: Good Plan - Discharge Summary Discharge Rx Participant: Yes New Discharge Prescriptions: New Fluconazole [Diflucan] 100 mg PO DAILY #7 tab No Action Metoprolol Tartrate [Lopressor] 12.5 mg PO BID@1000,2100 Gabapentin [Neurontin] 300 mg PO BID@1000,2100 Aspirin 81 mg PO DAILY@1700 Primidone [Mysoline] 50 mg PO BID@1000,2100 Lidocaine 2% Gel [Xylocaine Jelly 2%] 1 applic TOPICAL DAILY PRN PRN Reason: Pain Na Phos,M-B/Na Phos,Di-Ba [Fleet Adult] 133 ml RECTAL ONCE PRN PRN Reason: Constipation Bisacodyl [Dulcolax] 10 mg RECTAL DAILY PRN PRN Reason: Constipation Acetaminophen [Tylenol] 650 mg PO Q4H PRN PRN Reason: Fever And/ Or Pain Folic Acid 1 mg PO DAILY@1700 Cholecalciferol [Vitamin D3] 1,000 unit PO DAILY@1700 Magnesium Hydroxide [Milk of Magnesia] 2,400 mg PO DAILY PRN PRN Reason: Constipation Ondansetron [Zofran] 4 mg PO Q12HR PRN PRN Reason: Nausea Promethazine [Phenergan] 25 mg PO Q6HR PRN PRN Reason: Nausea And Vomiting Albuterol Nebulized (Conc) [Ventolin Nebulized (Conc)] 2.5 mg INHALATION RT- Q6H PRN PRN Reason: Shortness Of Breath Pantoprazole [Protonix] 40 mg PO BID@0600,1600 Apixaban [Eliquis] 5 mg PO BID@0800,1700 Ferrous Sulfate [Iron (65 MG Elemental)] 325 mg PO DAILY@1700 Collagenase [Santyl] 1 applic TOPICAL HS applic fentaNYL 12MCG/HR PATCH [Duragesic 12MCG/HR] 12 mcg TRANSDERM Q72H #1 patch fentaNYL 25MCG/HR PATCH [Duragesic 25MCG/HR] 25 mcg TRANSDERM Q72H #1 patch Hydrocodone/Acetaminophen [[place] 7.5-325] 1 tab PO Q6HR PRN #10 tablet PRN Reason: Pain Mirtazapine [Remeron (Soluspan)] 15 mg PO HS@2099 #3 tab.rapdis Discharge Medication List Aspirin 81 mg PO DAILY@169901/26/14 [History] Gabapentin [Neurontin] 300 mg PO BID@999,209901/26/14 [History] Metoprolol Tartrate [Lopressor] 12.5 mg PO BID@999,209901/26/14 [History] Primidone [Mysoline] 50 mg PO BID@999,209901/26/14 [History] Acetaminophen [Tylenol] 650 mg PO Q4H PRN 04/21/17 [History] Bisacodyl [Dulcolax] 10 mg RECTAL DAILY PRN 04/21/17 [History] Cholecalciferol [Vitamin D3] 1,000 unit PO DAILY@169904/21/17 [History] Folic Acid 1 mg PO DAILY@169904/21/17 [History] Lidocaine 2% Gel [Xylocaine Jelly 2%] 1 applic TOPICAL DAILY PRN 04/21/17 [ History] Magnesium Hydroxide [Milk of Magnesia] 2,400 mg PO DAILY PRN 04/21/17 [History] Na Phos,M-B/Na Phos,Di-Ba [Fleet Adult] 133 ml RECTAL ONCE PRN 04/21/17 [History ] Albuterol Nebulized (Conc) [Ventolin Nebulized (Conc)] 2.5 mg INHALATION RT-Q6H PRN 08/17/17 [History] Apixaban [Eliquis] 5 mg PO BID@0800,169908/17/17 [History] Ferrous Sulfate [Iron (65 MG Elemental)] 325 mg PO DAILY@169908/17/17 [History] Ondansetron [Zofran] 4 mg PO Q12HR PRN 08/17/17 [History] Pantoprazole [Protonix] 40 mg PO BID@0600,1600 08/17/17 [History] Promethazine [Phenergan] 25 mg PO Q6HR PRN 08/17/17 [History] Collagenase [Santyl] 1 applic TOPICAL HS applic 08/22/17 [Rx] Hydrocodone/Acetaminophen [[place] 7.5-325] 1 tab PO Q6HR PRN #10 tablet 08/22/17 [Rx] Mirtazapine [Remeron (Soluspan)] 15 mg PO HS@2100 #3 tab.rapdis 08/22/17 [Rx] fentaNYL 12MCG/HR PATCH [Duragesic 12MCG/HR] 12 mcg TRANSDERM Q72H #1 patch [Rx] fentaNYL 25MCG/HR PATCH [Duragesic 25MCG/HR] 25 mcg TRANSDERM Q72H #1 patch [Rx] Fluconazole [Diflucan] 100 mg PO DAILY #7 tab 09/10/17 [Rx] Follow up Appointment(s)/Referral(s): Solo Ferro DO [Primary Care Provider] - 1-2 days Edwin Sanchez, [NON-STAFF] - As Needed
[2017-09-10] MEDS: FERROUS SULFATE 325 MG TAB PO SCH ×2 (16:00→17:00)
[2017-09-10] MEDS: CHOLECALCIFEROL 1,000 UNIT TAB PO SCH ×2 (16:00→17:00)
[2017-09-10] MEDS: FOLIC ACID 1 MG TAB PO SCH ×2 (16:00→17:00)
[2017-09-10] MEDS: ASPIRIN 81 MG PO SCH ×2 (16:00→17:00)
--- NOTE | 2017-09-10 16:44 | PN ---
PROGRESS NOTE DATE OF SERVICE: 09/10/2017. REASON FOR FOLLOWUP: 1. Catheter associated urinary tract infection. 2. Right gluteal and sacral pressure ulcer stage III. INTERVAL HISTORY: The patient is afebrile. She seems to be breathing comfortably and slightly lethargic today. No nausea, vomiting, or any diarrhea per the nursing staff. Unable to obtain any history from this patient today. EXAMINATION: Blood pressure 131/51 with a pulse of 53. Temperature 97. She is 95% on room air. General description is an elderly female, lying in bed in no distress. RESPIRATORY SYSTEM: Unlabored breathing. Clear to auscultation anteriorly. HEART: S1, S2. Regular rate and rhythm. ABDOMEN: Soft, no tenderness. Wounds are currently dressed up. No obvious drainage on the dressing. LABS: Hemoglobin 11.3, white count 7.6, BUN of 16, creatinine 0.87. DIAGNOSTIC IMPRESSION AND PLAN: 1. Patient with catheter associated urinary tract infection and urine cultures with Enterococcus faecalis and Ivory albicans adequately treated. The repeat showing only Ivory albicans. Invanz can be discontinued. Give a short course of oral Diflucan for about a week. 2. Right gluteal and sacral pressure ulcers stage III. Local wound care with Santyl followed by moist dressing. Keep the area off the pressure. MMODL / IJN: [id number] /
== END 2017-09-10 19:55 | DRG 698 ==
LOC: EC 12:39 → 4MS4W 15:08 → 3SUR 20:10
PROVIDERS: ADMIT Hospitalist; ATTEND Hospitalist
DX: T83.511A Infection and inflammatory reaction due to indwelling urethral catheter, initial encounter (principal); L89.313 Pressure ulcer of right buttock, stage 3; L89.153 Pressure ulcer of sacral region, stage 3; G92 Toxic encephalopathy; I82.533 Chronic embolism and thrombosis of popliteal vein, bilateral; J98.11 Atelectasis; B37.49 Other urogenital candidiasis; E11.40 Type 2 diabetes mellitus with diabetic neuropathy, unspecified; I48.0 Paroxysmal atrial fibrillation; B95.2 Enterococcus as the cause of diseases classified elsewhere; N39.0 Urinary tract infection, site not specified; K21.9 Gastro-esophageal reflux disease without esophagitis; I10 Essential (primary) hypertension; Z16.24 Resistance to multiple antibiotics; M19.91 Primary osteoarthritis, unspecified site; Z79.01 Long term (current) use of anticoagulants; Z79.82 Long term (current) use of aspirin; Z79.1 Long term (current) use of non-steroidal anti-inflammatories (NSAID); Z79.891 Long term (current) use of opiate analgesic; Z79.899 Other long term (current) drug therapy; Z86.73 Personal history of transient ischemic attack (TIA), and cerebral infarction without residual deficits; Z87.440 Personal history of urinary (tract) infections; Z86.14 Personal history of Methicillin resistant Staphylococcus aureus infection; Z86.19 Personal history of other infectious and parasitic diseases; Z90.710 Acquired absence of both cervix and uterus; Z74.01 Bed confinement status; Z98.42 Cataract extraction status, left eye; Z98.41 Cataract extraction status, right eye; Z87.442 Personal history of urinary calculi; Z88.0 Allergy status to penicillin; Z82.49 Family history of ischemic heart disease and other diseases of the circulatory system; Z84.1 Family history of disorders of kidney and ureter; Y84.6 Urinary catheterization as the cause of abnormal reaction of the patient, or of later complication, without mention of misadventure at the time of the procedure
CPT/HCPCS: 36415; 70450; 71046; 80048; 80053; 81001; 82550; 82553; 83605; 84484; 85025; 85027; 85610; 85730; 87040; 87070; 87077; 87086; 87186; 87205; 93005; 93970; 94760; 96361; 96365; 96368; 96375; 96376; 99285